=== PATIENT | female | born 1935 | race Two or more races ===

== ENCOUNTER 2024-11-11 17:18 | Inpatient (IN) | payer MEDICARE, MEDICAID, SELFPAY ==
[2024-11-11] VITALS (12 sets, daily range): BP systolic 102–144; BP diastolic 58–89; PULSE 89–111; RESP 18–26; TEMP 36.7–37.2; O2SAT 89–97; BMI 29.1
--- NOTE | 2024-11-11 19:23 | EKG_ITS ---
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
--- NOTE | 2024-11-11 19:30 | PD.EDSOB ---
ED SOB =RME/HPI General Chief Complaint: Shortness of Breath/Dyspnea Stated Complaint: SOB Time Seen by Provider: 11/11/24 19:31 Source: patient and EMS Arrival date/time: 11/11/24 17:18 Mode of arrival: EMS Limitations: no limitations and other (hard of hearing) RME / HPI RME / HPI Narrative: Dr. Pham?s Main ED Evaluation: An 89-year-old female, a resident of [facility], was brought to the emergency department via ambulance due to shortness of breath. According to half-way staff, the patient was hypoxic with an oxygen saturation of 81% on 2 L/min nasal cannula. She was also noted to have a heart rate of 140 bpm and a blood pressure of 143/68 mmHg. En route, EMS administered 2.5 mg of Albuterol. There is no mention of any other associated symptoms or medical complaints. MD Complaint: shortness of breath Related Data Home Medications ?Medication ?Instructions ?Recorded ?Confirmed acetaminophen 650 mg 650 mg PO Q6HR PRN pain 11/12/24 11/12/24 tablet,extended release (8 Hour Pain Reliever) albuterol sulfate See Rx Instructions inhalation 11/12/24 11/12/24 Q6HR PRN shortness of breath amlodipine 2.5 mg tablet 2.5 mg PO QDAY 11/12/24 11/12/24 donepezil 5 mg tablet 5 mg PO HS 11/12/24 11/12/24 escitalopram oxalate 20 mg tablet 20 mg PO QDAY 11/12/24 11/12/24 ipratropium 0.5 mg-albuterol 3 mg 3 ml inhalation Q4H PRN shortness 11/12/24 11/12/24 (2.5 mg base)/3 mL nebulization of breath soln lidocaine 4 % topical patch 1 patch topical Q4H PRN pain 11/12/24 11/12/24 (Aspercreme (lidocaine)) metformin 1,000 mg tablet 1,000 mg PO QDAY 11/12/24 11/12/24 montelukast 10 mg tablet 10 mg PO QDAY 11/12/24 11/12/24 multivitamin (Daily Multi-Vitamin 1 tab PO QDAY 11/12/24 11/12/24 tablet) polyethylene glycol 3350 17 17 g PO QDAY 11/12/24 11/12/24 gram/dose oral powder (ClearLax) simvastatin 10 mg tablet 10 mg PO QDAY 11/12/24 11/12/24 tramadol 50 mg tablet 50 mg PO Q6H PRN pain, mild 11/12/24 11/12/24 Allergies Allergy/AdvReac Type Severity Reaction Status Date / Time iodine Allergy Verified 11/11/24 17:25 tositumomab [id number] Allergy Verified 11/11/24 17:26 Review of Systems Review of Systems Systems Reviewed: All systems reviewed, normal except as documented Past Medical History Social History SMOKING STATUS: Never smoker ED Exam General Limitations: Present no limitations and other (hard of hearing) General appearance: Present alert and other (appearing tachypneic.) Head Head exam: Present atraumatic Eye Eye exam: Present normal appearance, PERRL and EOMI ENT ENT exam: Present normal exam, normal oropharynx and mucous membranes moist Neck Neck exam: Present normal inspection, full ROM and trachea midline Chest Chest inspection: Present normal inspection and symmetric chest wall rise Respiratory Respiratory exam: Present other (Oxygen saturation at 94% on 5 L/min via nasal cannula. Diffuse wheezing present bilaterally.) Cardiovascular Cardiovascular exam: Present regular rate, normal rhythm and normal heart sounds Abdominal Exam Abdominal exam: Present soft and normal bowel sounds Extremities Exam Extremities exam: Present normal inspection, full ROM and other (+1 pitting edema noted bilaterally in the lower extremities, extending to the knees.) Back Exam Back exam: Present normal inspection and full ROM Neurological Exam Neurological exam: Present alert, oriented X3 and CN II-XII intact Psychiatric Psychiatric exam: Present normal affect and normal mood Skin Skin exam: Present warm, dry, intact and normal color Course Course Course Narrative: CXR is ordered for determining etiology of shortness of breath. 1945 Sepsis alert initiated. Orders made at this time are congruent with ED Adult Sepsis Order List. Re-evaluation is to be completed. 2024 Sepsis reassessment performed consisting of lab review, vitals, physical exam including auscultation of heart, lungs, and visual evaluation of capillary refills, mucosal membranes and extremities. Quality Measures Current suspected stage: sepsis Possible source: unknown Blood cultures ordered: yes Antibiotic ordered: Yes Pertinent labs: 11/11/24 19:45 Lactic Acid 0.8 mMol/L (0.4-2.0) Procalcitonin 0.33 ng/ml (0.0-0.49) sepsis Orders Category Date Time Status COVID-19 Screening Questionnaire NOW Care 11/11/24 21:10 Active Decision to Admit X1 Care 11/11/24 21:10 Completed EKG (ED ONLY) *Do not use* NOW Care 11/11/24 19:24 Completed [place] to [place] Routine Care 11/11/24 19:35 Ordered In and Out Catheter X1PRN Care 11/11/24 19:52 Active Miscellaneous Nursing Order X1 Care 11/11/24 19:35 Active Strict Intake and Output Routine Care 11/11/24 19:44 Ordered EKG (ED Only) Stat Exams 11/11/24 19:23 Draft XR chest 1V SEPSIS PROTOCOL Stat Exams 11/11/24 19:45 Completed BNP [B-Type Natriuretic Peptide] Stat Lab 11/11/24 19:45 Completed Blood Culture (Lab) Stat Lab 11/11/24 20:00 Received CBC Stat Lab 11/11/24 19:45 Completed CMP [Comprehensive Metabolic Panel] Stat Lab 11/11/24 19:45 Completed LDH (Lactate Dehydrogenase) Stat Lab 11/11/24 19:45 Completed Lactic Acid [Lactate (Lactic Acid)] Stat Lab 11/11/24 19:45 Completed Lipase Stat Lab 11/11/24 19:45 Completed Magnesium Stat Lab 11/11/24 19:45 Completed Partial Thromboplastin Time Stat Lab 11/11/24 19:45 Completed Phosphorous Stat Lab 11/11/24 19:45 Completed Procalcitonin Stat Lab 11/11/24 19:45 Completed Prothrombin Time with INR Stat Lab 11/11/24 19:45 Completed Troponin I Stat Lab 11/11/24 19:45 Completed Urinalysis Stat Lab 11/11/24 19:52 Ordered Urinalysis, C/S if Indicated Stat Lab 11/11/24 19:40 Completed Urine Culture Stat Lab 11/11/24 19:46 Received Azithromycin Inj [Zithromax Inj] 500 mg Med 11/11/24 19:53 Discontinued Sodium Chloride 0.9% 250 ml [Ns] 250 ml IV X1 Furosemide Inj [Lasix Inj] Med 11/11/24 19:35 Discontinued 40 mg IVP X1 ONE Nitroglycerin Oint 2% [Nitro-paste Oint 2%] Med 11/11/24 19:43 Discontinued 1 inch TOP X1 ONE cefTRIAXone [Rocephin] 1,000 mg Med 11/11/24 19:52 Discontinued Sodium Chloride 0.9% [Ns] 50 ml IV X1 Vital Signs Vital signs: Vital Signs Temperature 98.0 F 11/11/24 17:31 Pulse Rate 104 H 11/11/24 17:31 Respiratory Rate 18 11/11/24 17:31 Blood Pressure 139/59 H 11/11/24 17:31 Pulse Oximetry (%) 91 L 11/11/24 17:31 Oxygen Delivery Method Room Air 11/11/24 17:31 Procedures -ED EKG Interpretation #1: EKG Impression: Normal QRS Additional EKG comment: I personally interpreted the EKG performed on 11/11/2024 at 19:34 shows sinus tachycardia with a rate of 106 bpm, non-specific ST changes in leads V5-V6, a QTc of 402 ms, normal intervals, and no evidence of STEMI. Shortness of Breath / Dyspnea MDM Narrative MDM Narrative:: Scribe Attestation: I, Eugene Anguiano, am scribing for and in the presence of Dr. Pham. Provider Notation: Although this document has been carefully reviewed, there may still be some phonetic and other typographical errors. These errors are purely grammatical due to imperfections in the software program and should not be construed in any way to compromise the substance of the patient's medical care during this visit. Patient data External records reviewed:: EMS form Clinical information provided by:: patient and EMS Social determinants that could affect healthcare access:: housing (SNF) Patient has the following chronic illnesses:: See PMH How is presenting disease/condition affected by chronic disease/condition?: uneffected by Evaluation data The following diagnostics were reviewed and interpreted by me:: lab results, radiology exam(s) and EKG tracing(s) Lab and/or radiology exams considered but not ordered:: None Interpretation Summary: I personally reviewed the radiology data and agree with the radiologist's interpretation. Examination: AP chest single view Technique: AP portable semiupright chest single view Exam date and time: November 11, 2024 1957 hrs. Indication: Shortness of breath today sepsis protocol Findings: Pneumonia in the lingular segment left upper lobe, obscuring detail left cardiac contour Mild enlargement cardiac contour with moderate vascular congestion Prominent osteopenia Impression: Pneumonia lingular segment left upper lobe Dictated By: Rigoberto Jacobsen MD Medications / Prescriptions Medications or Prescriptions considered but not ordered:: None Medication administrations:: Medication Administration History Acetaminophen (Acetaminophen 325 Mg Tablet) 650 mg PO Q6H PRN PRN Reason: Fever >101.5 Stop: 12/11/24 21:39 Albuterol/Ipratropium (Albuterol/Ipratropium (Duoneb) Rt Suzy 3 Ml Nebu) 3 ml INH Q4HRRT DANIEL Stop: 12/11/24 22:59 Last Admin: 11/12/24 04:31 Dose: 3 ml Documented By: Admin: 11/11/24 23:27 Dose: 3 ml Documented By: KALIE Dextrose (Dextrose 50%-Water Inj 50 Ml Syringe) 25 ml IV Q15MIN PRN PRN Reason: BG 50-70 responsive npo pt Stop: 12/11/24 22:10 Dextrose (Dextrose 50%-Water Inj 50 Ml Syringe) 50 ml IV Q15MIN PRN PRN Reason: BG <50 OR BG <70 & pt unresponsive Stop: 12/11/24 22:10 Glucagon (Glucagon Inj 1 Mg Vial) 1 mg IM Q15MIN PRN PRN Reason: BG <70, and no IV access Heparin Sodium (Porcine) (Heparin Sod Inj 5000 Unit/Ml Vial) 5,000 unit SC Q12H DANIEL Stop: 11/25/24 21:44 Last Admin: 11/11/24 23:29 Dose: 5,000 unit Documented By: ANTHONY Co-signed By: BALA Cefepime HCl 2 gm/ Sodium (Chloride) 50 mls @ 100 mls/hr IV HS [facility] Stop: 11/18/24 21:44 Insulin Human Lispro (Insulin Lispro (Admelog) 1 Unit/0.01 Ml Unit) 0 unit SC AC [facility]; Protocol Stop: 12/12/24 07:29 Methylprednisolone Sodium Succinate (Methylprednisolone Sod Succ 40 Mg Vial) 40 mg IVP QDAY [facility] Stop: 11/18/24 23:04 Last Admin: 11/11/24 23:28 Dose: 40 mg Documented By: ANTHONY Ondansetron HCl (Ondansetron Inj 2 Mg/Ml Inj 2 Ml) 4 mg IV Q6H PRN; Protocol PRN Reason: NAUSEA OR VOMITING Stop: 12/11/24 21:39 Pharmacy Consult (Vancomycin Pharmacy To Dose 1 Each Each) 1 each IV QDAY PRN PRN Reason: CONSULT Stop: 12/12/24 08:59 Sennosides (Senna Tablet) 1 tab PO QDAY DANIEL; Protocol Stop: 12/12/24 08:59 Discontinued Medications Furosemide (Furosemide Inj 10 Mg/Ml 4ml Vial) 40 mg IVP X1 ONE Stop: 11/11/24 19:36 Last Admin: 11/11/24 20:44 Dose: 40 mg Documented By: ANTHONY Ceftriaxone Sodium 1,000 mg/ (Sodium Chloride) 50 mls @ 100 mls/hr IV X1 ONE Stop: 11/11/24 20:21 Last Infusion: 11/11/24 23:25 Dose: Infused Documented By: Admin: 11/11/24 20:35 Dose: 100 mls/hr Documented By: ANTHONY Azithromycin 500 mg/ Sodium (Chloride) 250 mls @ 250 mls/hr IV X1 ONE Stop: 11/11/24 20:52 Last Infusion: 11/11/24 23:26 Dose: Infused Documented By: Admin: 11/11/24 20:35 Dose: 250 mls/hr Documented By: ANTHONY Cefepime HCl 2 gm/ Sodium (Chloride) 50 mls @ 100 mls/hr IV Q24H DANIEL Stop: 11/18/24 21:44 Last Admin: 11/11/24 23:28 Dose: 100 mls/hr Documented By: ANTHONY Cefepime HCl 2 gm/ Sodium (Chloride) 50 mls @ 100 mls/hr IV X1 ONE Stop: 11/11/24 23:44 Last Admin: 11/12/24 00:21 Dose: Not Given Documented By: ANTHONY Non-Admin Reason: Duplicate Medication on eMAR Vancomycin HCl/Dextrose (Vancomycin/D5w 1,250 Mg Ivpb) 250 mls @ 250 mls/hr IV X1 ONE Stop: 11/12/24 00:29 Last Admin: 11/12/24 02:36 Dose: Not Given Documented By: ARMAND Non-Admin Reason: Cancelled by Provider Vancomycin/Sodium Chloride (Vancomycin/Ns 1 Gm Ivpb) 200 mls @ 200 mls/hr IV X1 ONE Stop: 11/12/24 03:59 Last Admin: 11/12/24 03:59 Dose: 200 mls/hr Documented By: ARMAND Methylprednisolone Sodium Succinate (Methylprednisolone Sod Succ 40 Mg Vial) 40 mg IVP QDAY DANIEL Stop: 11/19/24 08:59 Nitroglycerin (Nitroglycerin Oint 2% 1 Inch Packet) 1 inch TOP X1 ONE Stop: 11/11/24 19:44 Last Admin: 11/11/24 20:42 Dose: 1 inch Documented By: ANTHONY Sodium Chloride (Sodium Chloride Rt 10% 15 Ml Nebu) 5 ml INH X1 ONE Stop: 11/11/24 21:45 Last Admin: 11/12/24 01:14 Dose: 5 ml Documented By: LYDIA As above Consultations Consultation(s) initiated? (list below): Yes Consultation #1 (Physician, Specialty, Details): Hospitalist made aware of the patient?s HPI, PMHx, lab and/or radiology results. Treatment plan was discussed. Accepts patient for admission. Time: 21:10 Diagnosis Shortness of Breath Differential Diagnosis: other (CHF, PNA, PE, sepsis, ACS, metabolic encephalopathy, influenza) Most likely diagnosis given after review of the tests above:: See clinical impression Admission Indicated Admission indicated?: indicated Admission Request Was there a request for admission?: Yes Admission Attestation Admission request attestation: Discussed case with [] from Hospitalist service regarding admission. Discussed patients ED course, exam findings, labs, and radiology results. The Hospitalist [agrees,declines] to accept the patient for admission. Disposition Plan Disposition Plan: Admit Critical Care Time Critical Care Time Critical Care Time: Yes Total Critical Care Time (min.): 45 Attestation: The high probability of sudden, clinically significant deterioration in the patient?s condition required the highest level of my preparedness to intervene urgently. ? The services I provided to this patient were to treat and/or prevent clinically significant deterioration. Services included the following: chart data review, reviewing nursing notes and/or old charts, documentation time, oracle distribution consultant collaboration regarding findings and treatment options, medication orders and management, direct patient care, vital sign assessments and ordering, interpreting and reviewing diagnostic studies and lab tests. ? Aggregate critical care time includes only time during which I was engaged in work directly related to the patient?s care, as described above, whether at bedside or elsewhere in the Emergency Department. It did not include time spent performing other reported procedures or the services of residents, students, nurses or physician assistants. Discharge Plan Plan Patient Disposition: Admit Acute Care w/in Hospital Patient condition on transfer: Stable Problem List Clinical Impression: Sepsis, Pneumonia, Acute hypoxic respiratory failure
--- NOTE | 2024-11-11 19:45 | XR_ITS ---
Examination: AP chest single view Technique: AP portable semiupright chest single view Exam date and time: November 11, 20247 hrs. Indication: Shortness of breath today sepsis protocol Findings: Pneumonia in the lingular segment left upper lobe, obscuring detail left cardiac contour Mild enlargement cardiac contour with moderate vascular congestion Prominent osteopenia Impression: Pneumonia lingular segment left upper lobe
[2024-11-11 19:52] LABS: Lactate (Lactic Acid) 0.8 mMol/L (0.4-2.0)
[2024-11-11 19:53] LABS: Basophils % (Auto) 0 % (0-2.5); Eosinophils % (Auto) 0 % (0-10); Hematocrit 37.6 % (36.0-46.0); Immature Granulocytes % (Auto) 0 % (0-0); Immature Granulocytes Auto 0.01 Thou/mm3 (0.00-0.00); Lymphocytes # (Auto) 1.3 Thou/mm3 (1.0-4.8); Lymphocytes % (Auto) 17 % (10-50); Mean Corpuscular HGB Conc 31.9 g/dl (31.0-37.0); Mean Corpuscular Hemoglobin 27.9 pg (25.0-35.0); Mean Corpuscular Volume 87 fL (80-100); Monocytes # (Auto) 0.7 Thou/mm3 (0.0-0.8); Monocytes % (Auto) 9 % (0-12); Neutrophils # (Auto) 5.3 Thou/mm3 (1.8-7.7); Neutrophils % (Auto) 73 % (37-80); Nucleated Red Blood Cell % 0 /100 WBC (0); Platelet Count 207 Thou/mm3 (140-440); RDW Standard Deviation 45.4 fL (36.4-46.3); White Blood Count 7.3 Thou/mm3 (3.6-11.0)
[2024-11-11 19:54] LABS: Collection Type, Urine Clean Catch
[2024-11-11 19:59] LABS: Bilirubin,Urine Negative (Negative); Blood,Urine Negative (Negative); Clarity,Urine Clear (Clear/Hazy); Color,Urine Yellow (Lt Yel-Yel); Glucose, Urine Negative (Negative); Ketones,Urine Negative (Negative); Leukocyte Esterase,Urine Positive (Negative); Nitrite,Urine Negative (Negative); PH,Urine 5.5 (5.0-7.0); Protein,Urine 1+ (Neg - Trace); RBC,Urine 4 /hpf (0-3); Specific Gravity,Urine 1.025 (1.001-1.035); Squamous Epithelial Cell,Urine 2 /hpf (0-5); Urobilinogen,Urine Negative mg/dL (0.0-1.0); WBC,Urine 16 /hpf (0-5)
[2024-11-11 20:03] LABS: Culture Indicated,Urine Yes
[2024-11-11 20:23] LABS: B-Type Natriuretic Peptide 52 pg/mL (0-100)
[2024-11-11 20:28] LABS: Partial Thromboplastin Time 27.7 Seconds (22.0-36.0); Prothrombin Time 10.9 Seconds (9.0-12.2)
[2024-11-11] MEDS: AZITHROMYCIN INJ 500 MG in SODIUM CHLORIDE 0.9% 250 ML 250 ML 250 MG IV (20:35)
[2024-11-11] MEDS: NITROGLYCERIN OINT 2% 1 INCH PACKET TOP (20:42)
[2024-11-11] MEDS: FUROSEMIDE INJ 10 MG/ML 4ML VIAL 40 MG IVP (20:44)
[2024-11-11 20:58] LABS: Alanine Aminotransferase < 7 U/L (10-49); Albumin, Serum 3.8 gm/dL (3.4-4.8); Albumin/Globulin Ratio 1.5 (1.2-2.2); Alkaline Phosphatase 68 U/L (46-116); Anion Gap 7 (7-16); Aspartate Amino Transferase 14 U/L (0-34); BUN/Creatinine Ratio 19 Ratio (12-20); Bilirubin,Total 0.3 mg/dL (0.3-1.2); Blood Urea Nitrogen 23 mg/dL (9-23); Calcium 8.7 mg/dL (8.3-10.6); Calcium (Corrected) 8.9 mg/dL (8.5-10.1); Carbon Dioxide 25.9 mMol/L (20.0-31.0); Chloride 103 mMol/L (98-107); Creatinine (Component) 1.2 mg/dL (0.6-1.3); Estimated Creatinine Clearance 24.4 mL/min (>60); Globulin 2.5 gm/dL (2.3-3.5); Glucose 142 mg/dL (74-106); Lipase 31 U/L (12-53); Magnesium 1.6 mg/dL (1.6-2.6); Osmolality,Calculated 277 (275-295); Phosphorous 3.3 mg/dL (2.4-5.1); Potassium 4.6 mMol/L (3.4-5.1); Procalcitonin 0.33 ng/ml (0.0-0.49); Sodium 136 mMol/L (136-145); Total Protein 6.3 gm/dL (5.7-8.2); Troponin I < 0.020 ng/mL (0.0-0.045); eGFR 44 See Note
--- NOTE | 2024-11-11 21:44 | ECHO_ITS ---
Transthoracic Echo Report Ht (in): 56 Wt (lb): 130 Exam Location: Echo Lab Status: Emergency Title Officer: Sigrid Petty Indications: Procedure Performed: BP: / HR: Technical Quality: Technically difficult study MEASUREMENTS (Male / Female) Normal Values 2D ECHO LV Diastolic Diameter PLAX 4.8 cm 4.2 - 5.9 / 3.9 - 5.3 cm LV Systolic Diameter PLAX 3.4 cm IVS Diastolic Thickness 0.9 cm 0.6 - 1.0 / 0.6 - 0.9 cm LVPW Diastolic Thickness 1.1 cm 0.6 - 1.0 / 0.6 - 0.9 cm LV Relative Wall Thickness 0.4 LVOT Diameter 1.4 cm Aortic Root Diameter 2.6 cm LA Volume Index 25.6 cm?/m? 16 - 28 cm?/m? DOPPLER AV Peak Velocity 156.0 cm/s AV Peak Gradient 9.7 mmHg AV Mean Gradient 4.0 mmHg AV Velocity Time Integral 29.6 cm LVOT Peak Velocity 113.0 cm/s LVOT Peak Gradient 5.1 mmHg LVOT Velocity Time Integral 24.2 cm AV Area Cont Eq vti 1.3 cm? AV Area Cont Eq pk 1.1 cm? MV Area PHT 5.0 cm? MR Peak Velocity 243.0 cm/s MR Peak Gradient 23.6 mmHg Mitral E Point Velocity 71.3 cm/s Mitral A Point Velocity 91.7 cm/s Mitral E to A Ratio 0.8 LV E' Lateral Velocity 6.5 cm/s Mitral E to LV E' Lateral Ratio 10.9 LV E' Septal Velocity 3.1 cm/s Mitral E to LV E' Septal Ratio 22.6 TR Peak Velocity 227.0 cm/s TR Peak Gradient 20.6 mmHg FINDINGS Left Ventricle Normal left ventricular size, systolic function with no obvious regional wall motion abnormalities. Mild LVH. Normal left ventricular diastolic filling pattern for age. The ejection fraction is visually estimated at 50 %. Right Ventricle The right ventricle is normal in size. The right ventricular systolic function is moderately decreased. Left Atrium The left atrium is normal by two-dimensional, color flow and Doppler imaging with no structural abnormalities, no thrombus formation present. Right Atrium The right atrium is normal by two-dimensional imaging, color flow and Doppler imaging with no structural abnormalities, no thrombus formation present. Atrial Septum The interatrial septum appears normal with no evidence of a shunt. Aorta The aorta is normal by two-dimensional, color flow and Doppler interrogation. Mitral Valve The mitral valve is normal by two-dimensional, color flow and Doppler interrogation. There is mild mitral valve regurgitation, stenosis or prolapse. Aortic Valve The aortic valve is trileaflet and normal by two-dimensional, color flow and Doppler interrogation. There is no significant aortic valve regurgitation. Tricuspid Valve The tricuspid valve is normal by two-dimensional, color flow and Doppler interrogation. There is mild tricuspid valve regurgitation. Pulmonic Valve The pulmonic valve is not well visualized. There is no significant pulmonic valve regurgitation. Vessels Inferior vena cava not well visualized. Pericardium The pericardium is normal by two-dimensional imaging. There is no significant pericardial effusion. CONCLUSIONS Indication: CHF Exacerbation Normal LV size. Mild LVH. Estimated EF 45-50 %. RV normal in size. RV systolic function is moderately decreased. Mild mitral and trace tricuspid regurgitation Maria Ines Gonzalez (Electronically Signed) Final Date: 15 November 2024 00:52
[2024-11-11 22:00] LABS: LDH (Lactate Dehydrogenase) 190 U/L (120-246)
--- NOTE | 2024-11-11 22:38 | XR_ITS ---
Examination: Venous duplex lower extremity sonogram, bilateral. Date and time of exam: November 11, 2024 at 1114 hrs. Indications: Leg pain shortness of breath this week Technique: Multiple sonographic images of the deep venous system have been obtained. B-mode/2-D grayscale imaging of vascular structures and Doppler spectral analysis (waveforms) and color performed Both legs are examined. Findings: Deep venous systems do not demonstrate abnormal echogenicity. All visualized deep veins exhibit compressibility. All visualized deep veins exhibit augmentation. Impression: Negative for deep vein thrombosis
--- NOTE | 2024-11-11 22:39 | PD.RESHP ---
Documentation for date of: 11/11/24 HPI History of Present Illness Chief complaint: Shortness of breath History of present illness: Ms. Resendez is a 89-year-old Guatemalan-speaking female with past medical history of hypertension, type 2 diabetes mellitus, asthma, major depressive disorder, Alzheimer's dementia, hyperlipidemia and difficulty ambulating who presented to [facility] on 11/11/24 from [facility] with a chief complaint of shortness of breath. Patient does not have any other active complaints, denies any dysuria or other problems. Patient is hard of hearing, poor historian reports that her symptoms started recently, unable to provide much history, called [facility] who stated that patient is on 2 L oxygen at baseline and recently developed shortness of breath was sent to ED. in the ED patient met SIRS criteria 2/4 was tachycardic and tachypneic, chest x-ray was significant for pneumonia of lingular segment left upper lobe and moderate vascular congestion. Patient was given ceftriaxone and azithromycin in ED, nitroglycerin topical x 1 and Lasix 40 mg x 1. Patient was not given IV fluids due to concern of CHF exacerbation. ED Course: ED Vitals: On presentation blood pressure 139/59, P104, RR 18, temp 98.0, O2 sat 91 on room air ED Labs: ED labs significant for GFR 44, glucose 142 ED Imaging: Chest x-ray significant for pneumonia of lingular segment left upper lobe, moderate vascular congestion ED Treatment: Patient was given ceftriaxone and azithromycin in ED, nitroglycerin topical x 1 and Lasix 40 mg x 1. Patient admitted to hospital for acute on chronic hypoxic respiratory failure secondary to healthcare acquired pneumonia, CHF exacerbation, asthma exacerbation. Review of Systems Review of Systems Narrative Review of Systems: ROS: -CONSTITUTIONAL: Denies weight loss, fever and chills. -HEENT: Denies changes in vision and hearing. -RESPIRATORY: Positive for shortness of breath, denies cough, positive for orthopnea. -CV: Denies palpitations and Chest Pain. -GI: Denies abdominal pain, nausea, vomiting,constipation and diarrhea. -: Denies dysuria and urinary frequency. -MSK: Denies myalgia and joint pain. Right leg more swollen than left. -SKIN: Denies rash and pruritus. -NEUROLOGICAL: Denies headache and syncope. -PSYCHIATRIC: Denies recent changes in mood. Denies anxiety and depression. Past Medical History Past Medical History Comments PMH COMMENT: PMH: Positive for hypertension, type 2 diabetes mellitus, asthma, major depressive disorder, Alzheimer's dementia, hyperlipidemia and difficulty ambulating PSHx: Unable to provide information Allergies: Iodine Social history: Currently staying at [facility] Home medication: Donepezil 5 mg daily Amlodipine 2.5 mg daily Simvastatin 10 mg daily Metformin 1000 mg daily Ventolin as needed Escitalopram 20 mg daily Exam Vital Signs Temp Pulse Resp BP Pulse Ox O2 Del Method O2 Flow Rate 98.7 F 104 H 26 H 102/58 L 95 Nasal Cannula 5 11/11/24 21:13 11/11/24 22:00 11/11/24 22:00 11/11/24 22:00 11/11/24 22:00 11/11/24 21:13 11/11/24 21:13 Narrative Exam Physical Exam General: Awake and in no acute distress. Conversational hard of hearing and non-toxic appearing. HEENT: Normocephalic, atraumatic, mucous membranes moist. Heart: Regular rate and rhythm, no murmurs. Lungs: Bilateral crackles, wheezing appreciated Abdomen: Soft, obese, nondistended, nontender, positive bowel sounds. ?No guarding or rebound tenderness. Neurologic: Alert and oriented x2, no gross neurological deficit, and patient able to move all 4 extremities. Extremities: Trace edema bilaterally. Right leg more swollen than left Skin: No rash or ecchymoses. Results: Labs 11/11/24 19:45 11/11/24 19:45 Labs: Short CBC 11/11/24 Range/Units 19:45 WBC 7.3 (3.6-11.0) Thou/mm3 Hgb 12.0 (12.0-16.0) g/dL Hct 37.6 (36.0-46.0) % Plt Count 207 (140-440) Thou/mm3 BMP 11/11/24 19:45 Sodium 136 Potassium 4.6 Chloride 103 Carbon Dioxide 25.9 BUN 23 Creatinine 1.2 Glucose 142 H Calcium 8.7 Cardiac Enzymes 11/11/24 Range/Units 19:45 Troponin I < 0.020 (0.0-0.045) ng/mL Liver Function 11/11/24 Range/Units 19:45 Total Bilirubin 0.3 (0.3-1.2) mg/dL AST 14 (0-34) U/L ALT < 7 L (10-49) U/L Alkaline Phosphatase 68 (46-116) U/L Albumin 3.8 (3.4-4.8) gm/dL Urine 11/11/24 Range/Units 19:40 Urine Color Yellow (Lt Yel-Yel) Urine Clarity Clear (Clear/Hazy) Urine pH 5.5 (5.0-7.0) Ur Specific [place] 1.025 (1.001-1.035) Urine Protein 1+ A (Neg - Trace) Urine Glucose (UA) Negative (Negative) Quality Measures Quality Measures sepsis Current suspected stage: sepsis Possible source: unknown Blood cultures ordered: yes Antibiotic ordered: Yes Advance care planning discussed with:: patient Medications Home Medications and Allergies Allergies Allergy/AdvReac Type Severity Reaction Status Date / Time iodine Allergy Verified 11/11/24 17:25 tositumomab iodine-131 Allergy Verified 11/11/24 17:26 Visit Medications Acetaminophen (Acetaminophen 325 Mg Tablet) 650 mg PO Q6H PRN PRN Reason: Fever >101.5 Stop: 12/11/24 21:39 Albuterol/Ipratropium (Albuterol/Ipratropium (Duoneb) Rt Suzy 3 Ml Nebu) 3 ml INH Q4HRRT [facility] Stop: 12/11/24 22:59 Dextrose (Dextrose 50%-Water Inj 50 Ml Syringe) 25 ml IV Q15MIN PRN PRN Reason: BG 50-70 responsive npo pt Stop: 12/11/24 22:10 Dextrose (Dextrose 50%-Water Inj 50 Ml Syringe) 50 ml IV Q15MIN PRN PRN Reason: BG <50 OR BG <70 & pt unresponsive Stop: 12/11/24 22:10 Glucagon (Glucagon Inj 1 Mg Vial) 1 mg IM Q15MIN PRN PRN Reason: BG <70, and no IV access Heparin Sodium (Porcine) (Heparin Sod Inj 5000 Unit/Ml Vial) 5,000 unit SC Q12H [facility] Stop: 11/25/24 21:44 Cefepime HCl 2 gm/ Sodium (Chloride) 50 mls @ 100 mls/hr IV Q24H [facility] Stop: 11/18/24 21:44 Insulin Human Lispro (Insulin Lispro (Admelog) 1 Unit/0.01 Ml Unit) 0 unit SC AC DANIEL; Protocol Stop: 12/12/24 07:29 Ondansetron HCl (Ondansetron Inj 2 Mg/Ml Inj 2 Ml) 4 mg IV Q6H PRN; Protocol PRN Reason: NAUSEA OR VOMITING Stop: 12/11/24 21:39 Pharmacy Consult (Vancomycin Pharmacy To Dose 1 Each Each) 1 each IV QDAY DANIEL Stop: 12/12/24 08:59 Sennosides (Senna Tablet) 1 tab PO QDAY DANIEL; Protocol Stop: 12/12/24 08:59 Discontinued Medications Furosemide (Furosemide Inj 10 Mg/Ml 4ml Vial) 40 mg IVP X1 ONE Stop: 11/11/24 19:36 Last Admin: 11/11/24 20:44 Dose: 40 mg Ceftriaxone Sodium 1,000 mg/ (Sodium Chloride) 50 mls @ 100 mls/hr IV X1 ONE Stop: 11/11/24 20:21 Last Admin: 11/11/24 20:35 Dose: 100 mls/hr Azithromycin 500 mg/ Sodium (Chloride) 250 mls @ 250 mls/hr IV X1 ONE Stop: 11/11/24 20:52 Last Admin: 11/11/24 20:35 Dose: 250 mls/hr Nitroglycerin (Nitroglycerin Oint 2% 1 Inch Packet) 1 inch TOP X1 ONE Stop: 11/11/24 19:44 Last Admin: 11/11/24 20:42 Dose: 1 inch Sodium Chloride (Sodium Chloride Rt 10% 15 Ml Nebu) 5 ml INH X1 ONE Stop: 11/11/24 21:45 Assessment & Plan Plan Assessment and Plan: Summary: Ms. Resendez is a 89-year-old Guatemalan-speaking female with past medical history of hypertension, type 2 diabetes mellitus, asthma, major depressive disorder, Alzheimer's dementia, hyperlipidemia and difficulty ambulating who presented to [facility] on 11/11/24 from [facility] with a chief complaint of shortness of breath. Patient admitted to hospital for acute on chronic hypoxic respiratory failure secondary to healthcare acquired pneumonia, CHF exacerbation, asthma exacerbation. #Acute on chronic hypoxic respiratory failure #Healthcare acquired pneumonia #Asthma exacerbation #Bilateral lower leg edema, R>L Patient on baseline 2 L at senior [facility], presented to ED with chief complaint of shortness of breath, had tachypnea, tachycardia, met SIRS criteria 2/4, chest x-ray showed lingular pneumonia left lung, was not given fluids due to concern of CHF, no previous echo on record, 1+ bilateral lower extremity edema noted by ED physician, was given Lasix 40 mg x 1. Bilateral wheezing, crackles heard, patient has increased oxygen requirement, currently on 5 L. Plan: -Started on cefepime and vancomycin (11/11- -started IV methylprednisone 40 mg daily -Ordered bedside flu, COVID, MRSA nasal screen, sputum culture -Follow-up blood culture -DuoNeb every 4 hours -Obtain daily weight, strict I&O, fluid restriction 1500 cc -Ordered venous Doppler bilateral lower extremities -Supplemental oxygen as needed -Patient was given Lasix 40 mg x 1 in ED -Ordered echo, concern for vascular congestion on chest x-ray #?BART vs. chronic kidney disease On admission BUN 23, creatinine 1.2, GFR 44, baseline unknown Patient received Lasix 40 mg x 1 in ED Plan: -Follow renal panel in a.m. -Avoid nephrotoxic agents -Dose medications renally # Type 2 diabetes mellitus Patient has history of type 2 diabetes mellitus on metformin 1000 mg daily. Plan: -Sliding scale insulin -Follow hemoglobin A1c in a.m. -Fingerstick AC -Carb consistent diet -Hypoglycemia protocol as needed #Hypertension #Hyperlipidemia Patient on amlodipine 2.5 mg daily and simvastatin 10 mg daily at home Plan: -Will hold antihypertensives, blood pressure soft -Follow lipid panel in a.m. #Alzheimer's dementia #Major depressive disorder Patient on donepezil 5 mg daily and escitalopram 20 mg daily at home Plan: -Consider resuming home meds in a.m. DVT prophylaxis: Heparin every 12 hours GI prophylaxis: Not indicated Diet: Cardiac, carbohydrate consistent, fluid restriction 1500 cc Lines: Peripheral IV Code status: Full code Primary point of contact: Patient's son Nirmal Resendez PH#[phone], obtained from facility. Case discussed with Attending Dr. Serrano. Alfreda Irene PGY1 Disclaimer: This note was dictated by speech recognition. Minor errors in automation tech may be present due to voice recognition software. Attending Provider Attestation/Addendum I attest that I was physically present for the evaluation, physical examination, lab and imaging review of the patient with the residents. I discussed the case with the residents and agree with the findings and plans of care as documented above. Patient is an 89 years old female with past medical history of hypertension, diabetes, asthma, major depressive disorder, Alzheimer's disease, hyperlipidemia who presented to the ED from [facility] with complaint of shortness of breath. At the facility, patient was found to have decreased oxygen saturation despite 2 L of nasal cannula and was sent to the ED. In the ED, patient was tachycardic with pulse of 104, she was also tachypneic. Chest x-ray was done which shows pneumonia of the lingular segment of left upper lobe and vascular congestion. Patient received Rocephin, azithromycin, nitroglycerin and Lasix in the ED. We will admit patient for management of acute on chronic hypoxic respiratory failure likely secondary to healthcare acquired pneumonia and acute asthma exacerbation. Started patient on IV cefepime and vancomycin. We will obtain flu, COVID, MRSA and sputum culture. We will continue with supplemental oxygen, DuoNebs, IV steroid. We will also obtain echocardiography as patient was noted to have vascular congestion on her chest x-ray. Patient did receive Lasix 40 x 1 in the ED, we will reevaluate tomorrow for need of diuresis. Patient will also noted to have right calf larger than the left 1, we will obtain a Doppler ultrasound. Started on sliding scale for diabetes mellitus. Patient has soft blood pressure we will hold her antihypertensives. Vi Serrano MD
[2024-11-11] MEDS: ALBUTEROL/IPRATROPIUM (Duoneb) RT SOL 3 ML NEBU INH (23:27)
[2024-11-11] MEDS: CEFEPIME INJ 2 GM in SODIUM CHLORIDE 0.9% 50 ML IV (23:28)
[2024-11-11] MEDS: HEPARIN SOD INJ 5000 UNIT/ML VIAL SC (23:29)
[2024-11-12] VITALS (14 sets, daily range): BP systolic 98–129; BP diastolic 49–86; PULSE 65–118; RESP 16–29; TEMP 36–36.9; O2SAT 90–99; BMI 31.6
[2024-11-12] MEDS: SODIUM CHLORIDE RT 10% 15 ML NEBU 5 ML INH (01:14)
[2024-11-12 01:39] LABS: Respiratory Syncytial Virus Ag Positive (Negative)
--- NOTE | 2024-11-12 02:53 | PC.NURSE ---
repoort was given to malini DO. Pt taken to [facility] by myself on corporate development analyst.
[2024-11-12] MEDS: VANCOMYCIN/NS 1 GM IVPB 200 ML IV (03:59)
[2024-11-12] MEDS: ALBUTEROL/IPRATROPIUM (Duoneb) RT SOL 3 ML NEBU INH ×6 (04:31→22:40)
[2024-11-12 05:36] LABS: Basophils % (Auto) 0 % (0-2.5); Eosinophils % (Auto) 0 % (0-10); Hematocrit 37.4 % (36.0-46.0); Hemoglobin 11.9 g/dL (12.0-16.0); Immature Granulocytes % (Auto) 0 % (0-0); Immature Granulocytes Auto 0.02 Thou/mm3 (0.00-0.00); Lymphocytes # (Auto) 0.8 Thou/mm3 (1.0-4.8); Lymphocytes % (Auto) 10 % (10-50); Mean Corpuscular HGB Conc 31.8 g/dl (31.0-37.0); Mean Corpuscular Hemoglobin 27.7 pg (25.0-35.0); Mean Corpuscular Volume 87 fL (80-100); Monocytes # (Auto) 0.1 Thou/mm3 (0.0-0.8); Monocytes % (Auto) 2 % (0-12); Neutrophils # (Auto) 7.5 Thou/mm3 (1.8-7.7); Neutrophils % (Auto) 89 % (37-80); Nucleated Red Blood Cell % 0 /100 WBC (0); Platelet Count 206 Thou/mm3 (140-440); RDW Standard Deviation 44.5 fL (36.4-46.3); White Blood Count 8.4 Thou/mm3 (3.6-11.0)
[2024-11-12 06:01] LABS: Glucose Estimated Average 151 mg/dL (80-131); Hemoglobin A1C 6.9 % Hgb (4.8-6.0)
[2024-11-12 06:25] LABS: Alanine Aminotransferase < 7 U/L (10-49); Albumin, Serum 3.7 gm/dL (3.4-4.8); Albumin/Globulin Ratio 1.3 (1.2-2.2); Alkaline Phosphatase 66 U/L (46-116); Anion Gap 9 (7-16); Aspartate Amino Transferase 10 U/L (0-34); BUN/Creatinine Ratio 19 Ratio (12-20); Bilirubin,Total 0.2 mg/dL (0.3-1.2); Blood Urea Nitrogen 23 mg/dL (9-23); Calcium 8.3 mg/dL (8.3-10.6); Calcium (Corrected) 8.5 mg/dL (8.5-10.1); Carbon Dioxide 25.9 mMol/L (20.0-31.0); Cardiac Risk Estimate 2.1 RATIO (3.7-5.6); Chloride 102 mMol/L (98-107); Cholesterol 105 mg/dL (132-200); Creatinine (Component) 1.2 mg/dL (0.6-1.3); Estimated Creatinine Clearance 25.4 mL/min (>60); Free T4 (Free Thyroxine) 1.11 ng/dL (0.89-1.76); Globulin 2.8 gm/dL (2.3-3.5); Glucose 161 mg/dL (74-106); HDL Cholesterol 51 mg/dL (40-60); LDL Cholesterol,Calculated 44 mg/dL (0-130); Magnesium 1.6 mg/dL (1.6-2.6); Osmolality,Calculated 280 (275-295); Phosphorous 4.1 mg/dL (2.4-5.1); Potassium 4.6 mMol/L (3.4-5.1); Sodium 137 mMol/L (136-145); Thyroid Stimulating Hormone 0.69 uIU/mL (0.55-4.78); Total Protein 6.5 gm/dL (5.7-8.2); Triglycerides 52 mg/dL (30-150); eGFR 44 See Note
[2024-11-12] MEDS: SENNA TABLET 1 TAB PO (10:00)
[2024-11-12] MEDS: HEPARIN SOD INJ 5000 UNIT/ML VIAL SC ×2 (10:01→21:57)
[2024-11-12] MEDS: INSULIN LISPRO (AdmeLOG) 1 UNIT/0.01 ML UNIT SC ×3 (10:02→17:27)
--- NOTE | 2024-11-12 13:27 | PD.RESPRO ---
Documentation for date of: 11/12/24 Subjective Subjective Interval history: Patient was seen at bedside this morning. She was pretty drowsy today, but was easily arousable. In the afternoon patient was sitting in bed enjoying her lunch. No other complaints this time. Wheezing is heard on auscultation. No other complaints at this time. Exam Vital Signs Temp Pulse Resp BP Pulse Ox O2 Del Method O2 Flow Rate 96.8 F 65 16 103/56 L 98 Nasal Cannula 4 11/12/24 08:00 11/12/24 10:11/12/24 10:11/12/24 08:00 11/12/24 10:11/12/24 08:00 11/12/24 10:25 Narrative Exam General: A/O x3, no acute distress, frail elderly Eyes: PERRL, EOMI. Anicteric, vision grossly intact. Ears: No ear pain, no ear discharge, Hearing grossly intact. Nose: No nasal discharge. Mouth/Throat: Dry mucous membranes, no redness, no lesions. Neck: Neck supple, non-tender, no cervical lymphadenopathy. Lungs: Wheezing AGUILA, No accessory muscle use. Cardio: Normal S1/S2, regular rhythm, no murmurs, no JVD Abdomen: Soft, non-tender, no palpable masses, peristalsis present, no guarding or rebound. Extremities: Symmetrical, no significant deformities, no peripheral edema , non-tender, peripheral pulses presents. Skin: No rashes, no lesions, warm to touch. Neuro: No focal neurological deficits. motor and sensory intact Psych: Cooperative, appropriate mood and effect. Objective Labs 11/12/24 04:44 11/12/24 04:44 Labs: Laboratory Results - last 24 hr 11/11/24 11/11/24 11/12/24 19:40 19:45 00:12 WBC 7.3 RBC 4.30 Hgb 12.0 Hct 37.6 MCV 87 MCH 27.9 MCHC 31.9 RDW Std Deviation 45.4 Plt Count 207 Neut % (Auto) 73 Lymph % (Auto) 17 [place] % (Auto) 9 Eos % (Auto) 0 Baso % (Auto) 0 Neut # (Auto) 5.3 Lymph # (Auto) 1.3 [place] # (Auto) 0.7 Eos # (Auto) 0.0 Baso # (Auto) 0.0 Immature Gran # (Auto) 0.01 H Absolute Nucleated RBC 0.00 Immature Gran % 0 Nucleated RBC % 0 PT 10.9 INR 1.0 APTT 27.7 Sodium 136 Potassium 4.6 Chloride 103 Carbon Dioxide 25.9 Anion Gap 7 BUN 23 Creatinine 1.2 Estim Creat Clear Calc 24.4 L eGFR 44 L BUN/Creatinine Ratio [address] Glu mg/dL Hemoglobin A1c Calculated Osmolality 277 Lactic Acid 0.8 Calcium 8.7 Corrected Calcium 8.9 Phosphorus 3.3 Magnesium 1.6 Total Bilirubin 0.3 AST 14 ALT < 7 L Alkaline Phosphatase 68 Lactate Dehydrogenase 190 Troponin I < 0.020 B-Natriuretic Peptide 52 Total Protein 6.3 Albumin 3.8 Globulin 2.5 Albumin/Globulin Ratio 1.5 Triglycerides Cholesterol LDL Cholesterol, Calc HDL Cholesterol Cholesterol/HDL Ratio Lipase 31 Procalcitonin 0.33 TSH Free T4 Ur Collection Type Clean Catch Urine Color Yellow Urine Clarity Clear Urine pH 5.5 Ur Specific [place] 1.025 Urine Protein 1+ A Urine Glucose (UA) Negative Urine Ketones Negative Urine Blood Negative Urine Nitrite Negative Urine Bilirubin Negative Urine Urobilinogen (Auto) Negative Ur Leukocyte Esterase Positive Urine RBC 4 H Urine WBC 16 H Ur Squamous Epith Cells 2 Urine Bacteria None Ur Culture Indicated? Yes RSV Rapid Positive A 11/12/24 04:44 WBC 8.4 RBC 4.30 Hgb 11.9 L Hct 37.4 MCV 87 MCH 27.7 MCHC 31.8 RDW Std Deviation 44.5 Plt Count 206 Neut % (Auto) 89 H Lymph % (Auto) 10 [place] % (Auto) 2 Eos % (Auto) 0 Baso % (Auto) 0 Neut # (Auto) 7.5 Lymph # (Auto) 0.8 L [place] # (Auto) 0.1 Eos # (Auto) 0.0 Baso # (Auto) 0.0 Immature Gran # (Auto) 0.02 H Absolute Nucleated RBC 0.00 Immature Gran % 0 Nucleated RBC % 0 PT INR APTT Sodium 137 Potassium 4.6 Chloride 102 Carbon Dioxide 25.9 Anion Gap 9 BUN 23 Creatinine 1.2 Estim Creat Clear Calc 25.4 L eGFR 44 L BUN/Creatinine Ratio [address]ucose [address] Glu mg/dL 151 H Hemoglobin A1c 6.9 H Calculated Osmolality 280 Lactic Acid Calcium 8.3 Corrected Calcium 8.5 Phosphorus 4.1 Magnesium 1.6 Total Bilirubin 0.2 L AST 10 ALT < 7 L Alkaline Phosphatase 66 Lactate Dehydrogenase Troponin I B-Natriuretic Peptide Total Protein 6.5 Albumin 3.7 Globulin 2.8 Albumin/Globulin Ratio 1.3 Triglycerides 52 Cholesterol 105 L LDL Cholesterol, Calc 44 HDL Cholesterol 51 Cholesterol/HDL Ratio 2.1 L Lipase Procalcitonin TSH 0.69 Free T4 1.11 Ur Collection Type Urine Color Urine Clarity Urine pH Ur Specific [place] Urine Protein Urine Glucose (UA) Urine Ketones Urine Blood Urine Nitrite Urine Bilirubin Urine Urobilinogen (Auto) Ur Leukocyte Esterase Urine RBC Urine WBC Ur Squamous Epith Cells Urine Bacteria Ur Culture Indicated? RSV Rapid Quality Measures Quality Measures sepsis Current suspected stage: ruled out Possible source: unknown Blood cultures ordered: yes Antibiotic ordered: Yes Advance care planning discussed with:: patient Assessment & Plan Assessment Current Active Medications: Generic Name Dose Route Start Last Admin Trade Name Freq PRN Reason Stop Dose Admin Acetaminophen 650 mg 11/11/24 21:40 Acetaminophen 325 Mg Tablet PO 12/11/24 21:39 Q6H PRN Fever >101.5 Albuterol/Ipratropium 3 ml 11/11/24 23:00 11/12/24 10:24 Albuterol/Ipratropium (Duoneb) Rt Suzy 3 Ml Nebu INH 12/11/24 22:59 3 ml Q4HRRT DANIEL Administration Dextrose 25 ml 11/11/24 22:11 Dextrose 50%-Water Inj 50 Ml Syringe IV 12/11/24 22:10 Q15MIN PRN BG 50-70 responsive npo pt Dextrose 50 ml 11/11/24 22:11 Dextrose 50%-Water Inj 50 Ml Syringe IV 12/11/24 22:10 Q15MIN PRN BG <50 OR BG <70 & pt unresponsive Glucagon 1 mg 11/11/24 22:11 Glucagon Inj 1 Mg Vial IM Q15MIN PRN BG <70, and no IV access Heparin Sodium (Porcine) 5,000 unit 11/11/24 21:45 11/12/24 10:01 Heparin Sod Inj 5000 Unit/Ml Vial SC 11/25/24 21:44 5,000 unit Q12H DANIEL Administration Cefepime HCl 2 gm/ Sodium 50 mls @ 100 mls/hr 11/12/24 21:00 Chloride IV 11/18/24 21:44 HS [facility] Insulin Human Lispro 0 unit 11/12/24 07:30 11/12/24 11:56 Insulin Lispro (Admelog) 1 Unit/0.01 Ml Unit SC 12/12/24 07:29 1 unit AC DANIEL Administration Protocol Methylprednisolone Sodium Succinate 40 mg 11/11/24 23:05 11/12/24 10:01 Methylprednisolone Sod Succ 40 Mg Vial IVP 11/18/24 23:04 40 mg QDAY DANIEL Administration Ondansetron HCl 4 mg 11/11/24 21:40 Ondansetron Inj 2 Mg/Ml Inj 2 Ml IV 12/11/24 21:39 Q6H PRN NAUSEA OR VOMITING Protocol Pharmacy Consult 1 each 11/12/24 09:00 Vancomycin Pharmacy To Dose 1 Each Each IV 12/12/24 08:59 QDAY PRN CONSULT Sennosides 1 tab 11/12/24 09:00 11/12/24 10:00 Senna Tablet PO 12/12/24 08:59 1 tab QDAY DANIEL Administration Protocol Plan 89-year-old female with past medical history of asthma, hypertension, DM2, major depressive disorder, Alzheimer's, and hyperlipidemia was admitted to hospital on 11/11/2024 due to acute hypoxic respiratory failure likely secondary to asthma exacerbation in the setting of community-acquired pneumonia. #Acute on chronic hypoxic respiratory failure likely secondary to #Asthma exacerbation in the setting of #Community-acquired pneumonia, RSV positive ? Patient uses 2 L of O2 at [facility]. ? Patient came in with increased shortness of breath, tachypnea, and tachycardia. ? Chest x-ray that showed pneumonia ? Patient is RSV positive Plan: ? Continue cefepime and vancomycin [11/11/2024?] ?Continue Solu-Medrol 40 mg IV daily [11/11/2024?] ? DuoNebs every 4 hours ? Blood cultures pending ? Will continue to monitor #Concern for heart failure ? Patient came in with lower extremity swelling as well as shortness of breath with some crackles on physical exam initially ? There is no echo on file ? BNP 52 Plan: ? Echo ordered ? Strict QUENTIN's ? Daily weights ? Fluid restrictions daily ? Will continue to monitor #DM2 ? A1c 6.9% 11/12/2024 Plan: ? ISS ? Accu-Cheks and hypoglycemia protocol ordered ? Will continue to monitor #Hx of hypertension #Hx of hyperlipidemia ? Triglycerides 52, cholesterol 105, LDL 44, HDL 51 on 11/12/2024 ? Patient's blood pressure has been on the lower end since admission Plan: ? Atorvastatin 20 mg at bedtime ? Will hold off on antihypertensive medication at this time given patient's soft BP ? Restart amlodipine 2.5 mg daily if patient's blood pressure does become elevated #Hx of major depressive disorder #Alzheimer's disease ? Will restart patient's donepezil 5 mg at bedtime ? Will restart patient escitalopram 20 mg p.o. daily Disposition: Patient seen in med surg, continue Abx, solumedrol, duonebs, and pending echo and blood cultures.. Diet: Cardiac, carb consistent GI prophylaxis: protonix DVT prophylaxis: Heparin sc Code: Full code Case disclosed with Attending Dr. Gonzales Sy PGY1 Attending Provider Attestation/Addendum I have examined the patient, reviewed labs and imaging findings, discussed the case with the resident(s), and reviewed entered orders. I agree with the plan of care as outlined in this note, with these additional summaries/recommendations: 89-year-old female history of asthma, dementia presents to the ED with chief complaint of altered mental status and hypoxia. Patient found to be RSV positive in addition to asthma exacerbation, healthcare acquired pneumonia, GPC bacteremia. Will initiate patient on broad-spectrum antibiotics, steroids for asthma exacerbation as well as DuoNeb treatment and continue to monitor closely. Placed in contact precautions for RSV. George Rolon MD
[2024-11-12] MEDS: ESCITALOPRAM OXALATE 10 MG TABLET 20 MG PO (17:26)
[2024-11-12] MEDS: PANTOPRAZOLE 40 MG TABLET PO (17:27)
--- NOTE | 2024-11-12 19:04 | PC.NURSE ---
Noted patient in a-fib on strips, called radiation monitor and confirmed a-fib. HR in high 90s. Tried to call morning team but no answer. Tried to call night team and no answer 1900. Nurse in shift report notified.
--- NOTE | 2024-11-12 19:49 | EKG_ITS ---
[facility] Test Date: 2024-11-12 Pat Name: PRESTON WARD [facility] Gender[facility] Female Speech Pathology Teacher: BRANDON : 1935 Requested By: Lux Zaragoza Order Number: [id number] Reading MD: Lux Zaragoza Measurements Intervals [place] Rate: 101 P: RI: QRS: 37 QRSD: 99 T: 78 QT: 355 QTc: 462 Interpretive Statements ATRIAL FIBRILLATION WITH RAPID VENTRICULAR RESPONSE NONSPECIFIC T-WAVE ABNORMALITY ABNORMAL RHYTHM ECG Compared to ECG 11/11/2024 19:34:41 Sinus tachycardia no longer present T-wave abnormality still present /store/S0/[id number]
[2024-11-12] MEDS: CEFEPIME INJ 2 GM in SODIUM CHLORIDE 0.9% 50 ML IV (21:56)
[2024-11-12] MEDS: DONEPEZIL HCL 5 MG TABLET PO (21:57)
[2024-11-12] MEDS: ATORVASTATIN CALCIUM 20 MG TABLET PO (21:57)
[2024-11-13] VITALS (14 sets, daily range): BP systolic 110–151; BP diastolic 60–78; PULSE 77–111; RESP 16–32; TEMP 36.1–36.8; O2SAT 94–99
--- NOTE | 2024-11-13 00:34 | PC.NURSE ---
pt strips showing Afib, Dr. Irene was made aware. No new orders for pt at this time. Per Dr. Irene, no new orders for pt at this time because HR rate is under 100. automation control technician reported that pt has a run of PVCs, Dr. Irene was made aware no new orders fro pt at this time. Pt's HR sinus with PACs, was made aware. no new orders for pt at thi time.
[2024-11-13] MEDS: ALBUTEROL/IPRATROPIUM (Duoneb) RT SOL 3 ML NEBU INH ×6 (02:14→23:50)
[2024-11-13 05:45] LABS: Basophils % (Auto) 0 % (0-2.5); Eosinophils % (Auto) 0 % (0-10); Hematocrit 34.8 % (36.0-46.0); Immature Granulocytes % (Auto) 0 % (0-0); Immature Granulocytes Auto 0.01 Thou/mm3 (0.00-0.00); Lymphocytes # (Auto) 1.5 Thou/mm3 (1.0-4.8); Lymphocytes % (Auto) 21 % (10-50); Mean Corpuscular HGB Conc 31.6 g/dl (31.0-37.0); Mean Corpuscular Hemoglobin 27.8 pg (25.0-35.0); Mean Corpuscular Volume 88 fL (80-100); Monocytes # (Auto) 0.8 Thou/mm3 (0.0-0.8); Monocytes % (Auto) 11 % (0-12); Neutrophils # (Auto) 4.7 Thou/mm3 (1.8-7.7); Neutrophils % (Auto) 68 % (37-80); Nucleated Red Blood Cell % 0 /100 WBC (0); Platelet Count 183 Thou/mm3 (140-440); RDW Standard Deviation 44.6 fL (36.4-46.3); Red Blood Count 3.95 Miln/mm3 (4.00-5.20)
[2024-11-13 06:25] LABS: Alanine Aminotransferase < 7 U/L (10-49); Albumin, Serum 3.6 gm/dL (3.4-4.8); Albumin/Globulin Ratio 1.4 (1.2-2.2); Alkaline Phosphatase 59 U/L (46-116); Anion Gap 8 (7-16); Aspartate Amino Transferase < 10 U/L (0-34); BUN/Creatinine Ratio 30 Ratio (12-20); Bilirubin,Total 0.2 mg/dL (0.3-1.2); Blood Urea Nitrogen 36 mg/dL (9-23); Calcium 8.6 mg/dL (8.3-10.6); Calcium (Corrected) 8.9 mg/dL (8.5-10.1); Carbon Dioxide 27.7 mMol/L (20.0-31.0); Chloride 104 mMol/L (98-107); Creatinine (Component) 1.2 mg/dL (0.6-1.3); Estimated Creatinine Clearance 25.5 mL/min (>60); Globulin 2.5 gm/dL (2.3-3.5); Glucose 146 mg/dL (74-106); Magnesium 1.9 mg/dL (1.6-2.6); Osmolality,Calculated 290 (275-295); Phosphorous 3.5 mg/dL (2.4-5.1); Potassium 4.3 mMol/L (3.4-5.1); Sodium 140 mMol/L (136-145); Total Protein 6.1 gm/dL (5.7-8.2); Vancomycin,Random 8.2 mcg/mL; eGFR 44 See Note
[2024-11-13] MEDS: Magnesium Sulfate 2 GM Ivpb 2 GM/50 ML BAG IV (09:20)
[2024-11-13] MEDS: PANTOPRAZOLE 40 MG TABLET PO (09:50)
[2024-11-13] MEDS: ESCITALOPRAM OXALATE 10 MG TABLET 20 MG PO (09:50)
[2024-11-13] MEDS: DOXYCYCLINE 100 MG TABLET PO ×2 (10:00→20:28)
[2024-11-13] MEDS: HEPARIN SOD INJ 5000 UNIT/ML VIAL SC (10:15)
--- NOTE | 2024-11-13 10:25 | PC.SS ---
Patient Marla Resendez is a 89 Year old male admitted for [facility] 11/12 PNA. SS met with patient at bedside to discuss Discharge plan and review demographic information. Patient she resides at [facility]. Patient reports her son, Nirmal is her surrogate decision maker [phone]. Patient's reports she needs assistance completing her ADL's. and utilizes a walker to a assist with ambulation. Patient reports she will be returning back to [facility] when medically cleared.When medically cleared, SS will assist with transportation Discharge plan: [facility] Next of Kin: Son, Nirmal [phone]
--- NOTE | 2024-11-13 16:12 | ESPR_ITS ---
<Statement entered by Adeline Pickering MD - 11/13/24 16:49> I discussed with and supervised my co-resident involved in the care of this patient. I agree with the assessment and plan as documented above. Patient is a 89 year old female with PMH of DM2, HTN, asthma who comes [facility] and was admitted to the hospital for acute hypoxic respiratory failure secondary to pneumonia. She is doing well this morning, back to baseline O2 at 2L. Blood cultures grew GPC 1 out of 2 bottles. Will follow up final cultures. On steroids, cefepime. Discontinued vancomcyin and started doxycyline. Anticipate discharge back to SNF within the next 24-48 hours pending cultures. Adeline Pickering MD PGY-3 Documentation for date of: 11/13/24 Subjective Subjective Interval history: Patient was seen at bedside this morning. She was currently on 2 L of oxygen via nasal cannula and was oxygenating well. She states that her breathing has significantly improved. Still pending blood culture sensitivity. Change patient's vancomycin to doxycycline 100 mg twice daily and discontinue cefepime. Will continue monitor. Exam Vital Signs Temp Pulse Resp BP Pulse Ox O2 Del Method O2 Flow Rate 97.7 F 89 28 H 130/72 99 Nasal Cannula 4 11/13/24 11:52 11/13/24 15:42 11/13/24 15:42 11/13/24 11:52 11/13/24 15:42 11/13/24 08:00 11/13/24 15:42 FiO2 60 11/13/24 10:10 Narrative Exam General: A/O x3, no acute distress, frail elderly Eyes: PERRL, EOMI. Anicteric, vision grossly intact. Ears: No ear pain, no ear discharge, Hearing grossly intact. Nose: No nasal discharge. Mouth/Throat: Dry mucous membranes, no redness, no lesions. Neck: Neck supple, non-tender, no cervical lymphadenopathy. Lungs: Mild expiratory wheezing, No accessory muscle use. Cardio: Normal S1/S2, regular rhythm, no murmurs, no JVD Abdomen: Soft, non-tender, no palpable masses, peristalsis present, no guarding or rebound. Extremities: Symmetrical, no significant deformities, no peripheral edema , non-tender, peripheral pulses presents. Skin: No rashes, no lesions, warm to touch. Neuro: No focal neurological deficits. motor and sensory intact Psych: Cooperative, appropriate mood and effect. Objective Labs 11/16/24 04:17 11/16/24 04:17 Labs: Laboratory Results - last 24 hr 11/13/24 04:15 WBC 7.0 RBC 3.95 L Hgb 11.0 L Hct 34.8 L MCV 88 MCH 27.8 MCHC 31.6 RDW Std Deviation 44.6 Plt Count 183 Neut % (Auto) 68 Lymph % (Auto) 21 [place] % (Auto) 11 Eos % (Auto) 0 Baso % (Auto) 0 Neut # (Auto) 4.7 Lymph # (Auto) 1.5 [place] # (Auto) 0.8 Eos # (Auto) 0.0 Baso # (Auto) 0.0 Immature Gran # (Auto) 0.01 H Absolute Nucleated RBC 0.00 Immature Gran % 0 Nucleated RBC % 0 Sodium 140 Potassium 4.3 Chloride 104 Carbon Dioxide 27.7 Anion Gap 8 BUN 36 H Creatinine 1.2 Estim Creat Clear Calc 25.5 L eGFR 44 L BUN/Creatinine Ratio 30 H Glucose 146 H Calculated Osmolality 290 Calcium 8.6 Corrected Calcium 8.9 Phosphorus 3.5 Magnesium 1.9 Total Bilirubin 0.2 L AST < 10 ALT < 7 L Alkaline Phosphatase 59 Total Protein 6.1 Albumin 3.6 Globulin 2.5 Albumin/Globulin Ratio 1.4 Random Vancomycin 8.2 Quality Measures Quality Measures sepsis Current suspected stage: ruled out Possible source: unknown Blood cultures ordered: yes Antibiotic ordered: Yes Advance care planning discussed with:: patient Assessment & Plan Assessment Current Active Medications: Generic Name Dose Route Start Last Admin Trade Name Leslie PRN Reason Stop Dose Admin Acetaminophen 650 mg 11/11/24 21:40 Acetaminophen 325 Mg Tablet PO 12/11/24 21:39 Q6H PRN Fever >101.5 Albuterol/Ipratropium 3 ml 11/11/24 23:00 11/13/24 15:42 Albuterol/Ipratropium (Duoneb) Rt Suzy 3 Ml Nebu INH 12/11/24 22:59 3 ml Q4HRRT DANIEL Administration Atorvastatin Calcium 20 mg 11/12/24 21:00 11/12/24 21:57 Atorvastatin Calcium 20 Mg Tablet PO 12/12/24 20:59 20 mg HS DANIEL Administration Dextrose 25 ml 11/11/24 22:11 Dextrose 50%-Water Inj 50 Ml Syringe IV 12/11/24 22:10 Q15MIN PRN BG 50-70 responsive npo pt Dextrose 50 ml 11/11/24 22:11 Dextrose 50%-Water Inj 50 Ml Syringe IV 12/11/24 22:10 Q15MIN PRN BG <50 OR BG <70 & pt unresponsive Donepezil HCl 5 mg 11/12/24 21:00 11/12/24 21:57 Donepezil Hcl 5 Mg Tablet PO 12/12/24 20:59 5 mg HS DANIEL Administration Doxycycline Hyclate 100 mg 11/13/24 09:30 11/13/24 10:00 Doxycycline 100 Mg Tablet PO 11/20/24 09:29 100 mg BID DANIEL Administration Escitalopram Oxalate 20 mg 11/12/24 14:30 11/13/24 09:50 Escitalopram Oxalate 10 Mg Tablet PO 12/12/24 14:29 20 mg QDAY DANIEL Administration Glucagon 1 mg 11/11/24 22:11 Glucagon Inj 1 Mg Vial IM Q15MIN PRN BG <70, and no IV access Heparin Sodium (Porcine) 5,000 unit 11/11/24 21:45 11/13/24 10:15 Heparin Sod Inj 5000 Unit/Ml Vial SC 11/25/24 21:44 5,000 unit Q12H DANIEL Administration Insulin Human Lispro 0 unit 11/12/24 07:30 11/13/24 12:20 Insulin Lispro (Admelog) 1 Unit/0.01 Ml Unit SC 12/12/24 07:29 Not Given AC [facility] Protocol Methylprednisolone Sodium Succinate 40 mg 11/11/24 23:05 11/13/24 09:50 Methylprednisolone Sod Succ 40 Mg Vial IVP 11/18/24 23:04 40 mg QDAY DANIEL Administration Ondansetron HCl 4 mg 11/11/24 21:40 Ondansetron Inj 2 Mg/Ml Inj 2 Ml IV 12/11/24 21:39 Q6H PRN NAUSEA OR VOMITING Protocol Pantoprazole Sodium 40 mg 11/12/24 14:30 11/13/24 09:50 Pantoprazole 40 Mg Tablet PO 12/12/24 14:29 40 mg QDAY DANIEL Administration Sennosides 1 tab 11/12/24 09:00 11/13/24 09:00 Senna Tablet PO 12/12/24 08:59 Not Given QDAY [facility] Protocol Plan 89-year-old female with past medical history of asthma, hypertension, DM2, major depressive disorder, Alzheimer's, and hyperlipidemia was admitted to hospital on 11/11/2024 due to acute hypoxic respiratory failure likely secondary to asthma exacerbation in the setting of community-acquired pneumonia. #Acute on chronic hypoxic respiratory failure likely secondary to #Asthma exacerbation in the setting of #Community-acquired pneumonia, RSV positive #GPC bacteremia? ? Patient uses 2 L of O2 at baseline [facility] facility. ? Patient came in with increased shortness of breath, tachypnea, and tachycardia. ? Chest x-ray that showed pneumonia ? Patient is RSV positive - Blood cultures grew GPC in 1 of 2 bottles ? DC'd cefepime and vancomycin [11/11/2024?11/13/2024] Plan: ? Start doxycycline 100mg BID [11/13/2024?] ?Continue Solu-Medrol 40 mg IV daily [11/11/2024?] ? DuoNebs every 4 hours ? Blood cultures pending ? Will continue to monitor #Concern for heart failure ? Patient came in with lower extremity swelling as well as shortness of breath with some crackles on physical exam initially ? There is no echo on file ? BNP 52 Plan: ? Echo pending ? Strict QUENTIN's ? Daily weights ? Fluid restrictions daily ? Will continue to monitor #DM2 ? A1c 6.9% 11/12/2024 Plan: ? ISS ? Accu-Cheks and hypoglycemia protocol ordered ? Will continue to monitor #Hx of hypertension #Hx of hyperlipidemia ? Triglycerides 52, cholesterol 105, LDL 44, HDL 51 on 11/12/2024 ? Patient's blood pressure has been on the lower end since admission Plan: ? Atorvastatin 20 mg at bedtime ? Will hold off on antihypertensive medication at this time given patient's soft BP ? Restart amlodipine 2.5 mg daily if patient's blood pressure does become elevated #Hx of major depressive disorder #Alzheimer's disease ? Will continue patient's donepezil 5 mg at bedtime ? Will continue patient escitalopram 20 mg p.o. daily Disposition: Patient seen in med surg, continue Abx, solumedrol, duonebs, and pending echo and blood cultures sensitivity Diet: Cardiac, carb consistent GI prophylaxis: protonix DVT prophylaxis: Heparin sc Code: Full code Case disclosed with Attending Dr. Rothman and my senior Dr. Pickering PGY3 Tl Sy PGY1 Attending Provider Attestation/Addendum Face to face evaluation was performed by me. I have personally seen and examined the patient. I discussed the assessment and plan with the entire medicine team. I reviewed available medical records, imaging studies, laboratory results. I agree with the above subjective data, objective findings, assessment and plan except as corrected by me or noted below #Acute on chronic hypoxic respiratory failure #Asthma with acute exacerbation #Community-acquired pneumonia, RSV positive #Possible superimposed bacterial PNA -Continue with current treatments BiPAP as needed for hyeprcapnia, monitor clinical status closely
[2024-11-13] MEDS: INSULIN LISPRO (AdmeLOG) 1 UNIT/0.01 ML UNIT SC (17:56)
[2024-11-13] MEDS: ATORVASTATIN CALCIUM 20 MG TABLET PO (20:28)
[2024-11-13] MEDS: DONEPEZIL HCL 5 MG TABLET PO (20:28)
--- NOTE | 2024-11-13 20:39 | PC.RT ---
sputum sample collected and sent to lab
[2024-11-14] VITALS (12 sets, daily range): BP systolic 111–136; BP diastolic 56–79; PULSE 79–103; RESP 18–33; TEMP 36.2–36.4; O2SAT 92–99; BMI 11.0
[2024-11-14] MEDS: ALBUTEROL/IPRATROPIUM (Duoneb) RT SOL 3 ML NEBU INH ×6 (02:56→23:08)
[2024-11-14] MEDS: guaiFENesin SYRUP 200 MG/10 ML UDC 100 MG PO (03:53)
[2024-11-14 06:23] LABS: Basophils % (Auto) 0 % (0-2.5); Eosinophils % (Auto) 0 % (0-10); Hemoglobin 10.7 g/dL (12.0-16.0); Immature Granulocytes % (Auto) 0 % (0-0); Immature Granulocytes Auto 0.02 Thou/mm3 (0.00-0.00); Lymphocytes # (Auto) 1.8 Thou/mm3 (1.0-4.8); Lymphocytes % (Auto) 23 % (10-50); Mean Corpuscular HGB Conc 32.4 g/dl (31.0-37.0); Mean Corpuscular Hemoglobin 27.9 pg (25.0-35.0); Mean Corpuscular Volume 86 fL (80-100); Monocytes # (Auto) 0.6 Thou/mm3 (0.0-0.8); Monocytes % (Auto) 8 % (0-12); Neutrophils # (Auto) 5.5 Thou/mm3 (1.8-7.7); Neutrophils % (Auto) 69 % (37-80); Nucleated Red Blood Cell % 0 /100 WBC (0); Platelet Count 207 Thou/mm3 (140-440); RDW Standard Deviation 43.8 fL (36.4-46.3); Red Blood Count 3.83 Miln/mm3 (4.00-5.20); White Blood Count 7.9 Thou/mm3 (3.6-11.0)
[2024-11-14 06:47] LABS: Alanine Aminotransferase 8 U/L (10-49); Albumin, Serum 3.6 gm/dL (3.4-4.8); Albumin/Globulin Ratio 1.5 (1.2-2.2); Alkaline Phosphatase 54 U/L (46-116); Anion Gap 8 (7-16); Aspartate Amino Transferase 13 U/L (0-34); BUN/Creatinine Ratio 28 Ratio (12-20); Bilirubin,Total 0.3 mg/dL (0.3-1.2); Blood Urea Nitrogen 34 mg/dL (9-23); Calcium 8.6 mg/dL (8.3-10.6); Calcium (Corrected) 8.9 mg/dL (8.5-10.1); Carbon Dioxide 27.2 mMol/L (20.0-31.0); Chloride 105 mMol/L (98-107); Creatinine (Component) 1.2 mg/dL (0.6-1.3); Globulin 2.4 gm/dL (2.3-3.5); Glucose 135 mg/dL (74-106); Osmolality,Calculated 289 (275-295); Phosphorous 2.8 mg/dL (2.4-5.1); Potassium 4.5 mMol/L (3.4-5.1); Sodium 140 mMol/L (136-145); eGFR 44 See Note
[2024-11-14] MEDS: PANTOPRAZOLE 40 MG TABLET PO (08:06)
[2024-11-14] MEDS: ESCITALOPRAM OXALATE 10 MG TABLET 20 MG PO (08:06)
[2024-11-14] MEDS: SENNA TABLET 1 TAB PO (08:07)
[2024-11-14] MEDS: DOXYCYCLINE 100 MG TABLET PO ×2 (08:18→20:30)
[2024-11-14] MEDS: HEPARIN SOD INJ 5000 UNIT/ML VIAL SC ×2 (10:02→22:00)
--- NOTE | 2024-11-14 13:32 | ESPR_ITS ---
<Statement entered by Adeline Pickering MD - 11/14/24 15:24> I discussed with and supervised my co-resident involved in the care of this patient. I agree with the assessment and plan as documented above. Patient seen and examined at bedside. Continues to have dry cough. Afebrile overnight. Blood cultures grew staphylococcus epidermidis on 2 out of 2 initial blood cultures. Will continue doxycyline, steroids. Adeline Pickering MD PGY-3 Documentation for date of: 11/14/24 Subjective Subjective Interval history: Patient was seen at bedside this morning. No overnight events. Patient's blood cultures grew Staphylococcus epidermidis on 2 out of 2 initial blood cultures. Repeat blood cultures is pending. Patient did not spike any fevers and continues to improve on oxygen requirements. Anticipate possible discharge in the next 24 to 48 hours. Exam Vital Signs Temp Pulse Resp BP Pulse Ox O2 Del Method O2 Flow Rate 97.3 F 87 19 114/63 95 Nasal Cannula 2 11/14/24 12:00 11/14/24 12:11/14/24 12:00 11/14/24 12:00 11/14/24 12:00 11/14/24 12:00 11/14/24 12:00 FiO2 60 11/13/24 10:10 Narrative Exam General: A/O x3, no acute distress, frail elderly Eyes: PERRL, EOMI. Anicteric, vision grossly intact. Ears: No ear pain, no ear discharge, Hearing grossly intact. Nose: No nasal discharge. Mouth/Throat: Dry mucous membranes, no redness, no lesions. Neck: Neck supple, non-tender, no cervical lymphadenopathy. Lungs: Still present expiratory wheezing, No accessory muscle use. Cardio: Normal S1/S2, regular rhythm, no murmurs, no JVD Abdomen: Soft, non-tender, no palpable masses, peristalsis present, no guarding or rebound. Extremities: Symmetrical, no significant deformities, no peripheral edema , non-tender, peripheral pulses presents. Skin: No rashes, no lesions, warm to touch. Neuro: No focal neurological deficits. motor and sensory intact Psych: Cooperative, appropriate mood and effect. Objective Labs 11/16/24 04:17 11/16/24 04:17 Labs: Laboratory Results - last 24 hr 11/14/24 04:40 WBC 7.9 RBC 3.83 L Hgb 10.7 L Hct 33.0 L MCV 86 MCH 27.9 MCHC 32.4 RDW Std Deviation 43.8 Plt Count 207 Neut % (Auto) 69 Lymph % (Auto) 23 [place] % (Auto) 8 Eos % (Auto) 0 Baso % (Auto) 0 Neut # (Auto) 5.5 Lymph # (Auto) 1.8 [place] # (Auto) 0.6 Eos # (Auto) 0.0 Baso # (Auto) 0.0 Immature Gran # (Auto) 0.02 H Absolute Nucleated RBC 0.00 Immature Gran % 0 Nucleated RBC % 0 Sodium 140 Potassium 4.5 Chloride 105 Carbon Dioxide 27.2 Anion Gap 8 BUN 34 H Creatinine 1.2 Estim Creat Clear Calc 25.0 L eGFR 44 L BUN/Creatinine Ratio 28 H Glucose 135 H Calculated Osmolality 289 Calcium 8.6 Corrected Calcium 8.9 Phosphorus 2.8 Magnesium 2.0 Total Bilirubin 0.3 AST 13 ALT 8 L Alkaline Phosphatase 54 Total Protein 6.0 Albumin 3.6 Globulin 2.4 Albumin/Globulin Ratio 1.5 Quality Measures Quality Measures sepsis Current suspected stage: ruled out Possible source: unknown Blood cultures ordered: yes Antibiotic ordered: Yes Advance care planning discussed with:: patient Assessment & Plan Assessment Current Active Medications: Generic Name Dose Route Start Last Admin Trade Name Freq PRN Reason Stop Dose Admin Acetaminophen 650 mg 11/11/24 21:40 Acetaminophen 325 Mg Tablet PO 12/11/24 21:39 Q6H PRN Fever >101.5 Albuterol/Ipratropium 3 ml 11/11/24 23:00 11/14/24 10:38 Albuterol/Ipratropium (Duoneb) Rt Suzy 3 Ml Nebu INH 12/11/24 22:59 3 ml Q4HRRT DANIEL Administration Atorvastatin Calcium 20 mg 11/12/24 21:00 11/13/24 20:28 Atorvastatin Calcium 20 Mg Tablet PO 12/12/24 20:59 20 mg HS DANIEL Administration Dextrose 25 ml 11/11/24 22:11 Dextrose 50%-Water Inj 50 Ml Syringe IV 12/11/24 22:10 Q15MIN PRN BG 50-70 responsive npo pt Dextrose 50 ml 11/11/24 22:11 Dextrose 50%-Water Inj 50 Ml Syringe IV 12/11/24 22:10 Q15MIN PRN BG <50 OR BG <70 & pt unresponsive Donepezil HCl 5 mg 11/12/24 21:00 11/13/24 20:28 Donepezil Hcl 5 Mg Tablet PO 12/12/24 20:59 5 mg HS DANIEL Administration Doxycycline Hyclate 100 mg 11/13/24 09:30 11/14/24 08:18 Doxycycline 100 Mg Tablet PO 11/20/24 09:29 100 mg BID DANIEL Administration Escitalopram Oxalate 20 mg 11/12/24 14:30 11/14/24 08:06 Escitalopram Oxalate 10 Mg Tablet PO 12/12/24 14:29 20 mg QDAY DANIEL Administration Glucagon 1 mg 11/11/24 22:11 Glucagon Inj 1 Mg Vial IM Q15MIN PRN BG <70, and no IV access Heparin Sodium (Porcine) 5,000 unit 11/11/24 21:45 11/14/24 10:02 Heparin Sod Inj 5000 Unit/Ml Vial SC 11/25/24 21:44 5,000 unit Q12H DANIEL Administration Insulin Human Lispro 0 unit 11/12/24 07:30 11/14/24 11:20 Insulin Lispro (Admelog) 1 Unit/0.01 Ml Unit SC 12/12/24 07:29 Not Given AC DANIEL Protocol Methylprednisolone Sodium Succinate 40 mg 11/11/24 23:05 11/14/24 08:07 Methylprednisolone Sod Succ 40 Mg Vial IVP 11/16/24 23:04 40 mg QDAY DANIEL Administration Ondansetron HCl 4 mg 11/11/24 21:40 Ondansetron Inj 2 Mg/Ml Inj 2 Ml IV 12/11/24 21:39 Q6H PRN NAUSEA OR VOMITING Protocol Pantoprazole Sodium 40 mg 11/12/24 14:30 11/14/24 08:06 Pantoprazole 40 Mg Tablet PO 12/12/24 14:29 40 mg QDAY DANIEL Administration Sennosides 1 tab 11/12/24 09:00 11/14/24 08:07 Senna Tablet PO 12/12/24 08:59 1 tab QDAY DANIEL Administration Protocol Plan 89-year-old female with past medical history of asthma, hypertension, DM2, major depressive disorder, Alzheimer's, and hyperlipidemia was admitted to hospital on 11/11/2024 due to acute hypoxic respiratory failure likely secondary to asthma exacerbation in the setting of community-acquired pneumonia. #Acute on chronic hypoxic respiratory failure likely secondary to #Asthma exacerbation in the setting of #Community-acquired pneumonia, RSV positive ? Patient uses 2 L of O2 [facility] baseline [facility] ? Patient came in with increased shortness of breath, tachypnea, and tachycardia. ? Chest x-ray that showed pneumonia ? Patient is RSV positive - Blood cultures grew S. Epidermidis 2 of 2 bottles, could be a contaminant ? DC'd cefepime and vancomycin [11/11/2024?11/13/2024] Plan: ? Continue doxycycline 100mg BID [11/13/2024?] ?Continue Solu-Medrol 40 mg IV daily [11/11/2024?] ? DuoNebs every 4 hours ? Repeat Blood cultures pending ? Will continue to monitor #Concern for heart failure ? Patient came in with lower extremity swelling as well as shortness of breath with some crackles on physical exam initially ? There is no echo on file ? BNP 52 Plan: ? Echo pending ? Strict QUENTIN's ? Daily weights ? Fluid restrictions daily ? Will continue to monitor #DM2 ? A1c 6.9% 11/12/2024 Plan: ? ISS ? Accu-Cheks and hypoglycemia protocol ordered ? Will continue to monitor #Hx of hypertension #Hx of hyperlipidemia ? Triglycerides 52, cholesterol 105, LDL 44, HDL 51 on 11/12/2024 ? Patient's blood pressure has been on the lower end since admission Plan: ? Atorvastatin 20 mg at bedtime ? Will hold off on antihypertensive medication at this time given patient's soft BP ? Restart amlodipine 2.5 mg daily if patient's blood pressure does become elevated #Hx of major depressive disorder #Alzheimer's disease ? Will continue patient's donepezil 5 mg at bedtime ? Will continue patient escitalopram 20 mg p.o. daily Disposition: Patient seen in med surg, continue Abx, solumedrol, duonebs, pending echo and blood cultures grew S.epidermidis 2/2 repeat ordered, DC in next 24-48hrs Diet: Cardiac, carb consistent GI prophylaxis: protonix DVT prophylaxis: Heparin sc Code: Full code Case disclosed with Attending Dr. Rothman and my senior Dr. Pickering PGY3 Tl Sy PGY1 Attending Provider Attestation/Addendum Face to face evaluation was performed by me. I have personally seen and examined the patient. I discussed the assessment and plan with the entire medicine team. I reviewed available medical records, imaging studies, laboratory results. I agree with the above subjective data, objective findings, assessment and plan except as corrected by me or noted below #Acute on chronic hypoxic respiratory failure #Asthma with acute exacerbation #Community-acquired pneumonia, RSV positive #Possible superimposed bacterial PNA -Continue with current care Abxs switched to doxyxcyline only - monitor clsoely her clnical status
[2024-11-14] MEDS: ATORVASTATIN CALCIUM 20 MG TABLET PO (20:30)
[2024-11-14] MEDS: DONEPEZIL HCL 5 MG TABLET PO (20:30)
[2024-11-14] MEDS: guaiFENesin SYRUP 200 MG/10 ML UDC PO (22:52)
[2024-11-15] VITALS (12 sets, daily range): BP systolic 116–148; BP diastolic 59–88; PULSE 70–103; RESP 13–32; TEMP 36.1–36.6; O2SAT 92–100; BMI 31.9
[2024-11-15] MEDS: ALBUTEROL/IPRATROPIUM (Duoneb) RT SOL 3 ML NEBU INH ×6 (02:43→22:44)
[2024-11-15 05:47] LABS: Basophils % (Auto) 0 % (0-2.5); Eosinophils % (Auto) 0 % (0-10); Hematocrit 35.6 % (36.0-46.0); Hemoglobin 11.4 g/dL (12.0-16.0); Immature Granulocytes % (Auto) 0 % (0-0); Immature Granulocytes Auto 0.02 Thou/mm3 (0.00-0.00); Lymphocytes # (Auto) 2.6 Thou/mm3 (1.0-4.8); Lymphocytes % (Auto) 29 % (10-50); Mean Corpuscular Hemoglobin 27.8 pg (25.0-35.0); Mean Corpuscular Volume 87 fL (80-100); Monocytes # (Auto) 0.7 Thou/mm3 (0.0-0.8); Monocytes % (Auto) 8 % (0-12); Neutrophils # (Auto) 5.5 Thou/mm3 (1.8-7.7); Neutrophils % (Auto) 62 % (37-80); Nucleated Red Blood Cell % 0 /100 WBC (0); Platelet Count 217 Thou/mm3 (140-440); RDW Standard Deviation 43.6 fL (36.4-46.3); White Blood Count 8.9 Thou/mm3 (3.6-11.0)
[2024-11-15 06:33] LABS: Alanine Aminotransferase 10 U/L (10-49); Albumin, Serum 3.6 gm/dL (3.4-4.8); Albumin/Globulin Ratio 1.4 (1.2-2.2); Alkaline Phosphatase 57 U/L (46-116); Anion Gap 8 (7-16); Aspartate Amino Transferase 13 U/L (0-34); BUN/Creatinine Ratio 31 Ratio (12-20); Bilirubin,Total 0.3 mg/dL (0.3-1.2); Blood Urea Nitrogen 31 mg/dL (9-23); Calcium 8.3 mg/dL (8.3-10.6); Calcium (Corrected) 8.6 mg/dL (8.5-10.1); Carbon Dioxide 27.8 mMol/L (20.0-31.0); Chloride 105 mMol/L (98-107); Estimated Creatinine Clearance 30.6 mL/min (>60); Globulin 2.5 gm/dL (2.3-3.5); Glucose 100 mg/dL (74-106); Osmolality,Calculated 287 (275-295); Potassium 4.3 mMol/L (3.4-5.1); Sodium 141 mMol/L (136-145); Total Protein 6.1 gm/dL (5.7-8.2); eGFR 55 See Note
--- NOTE | 2024-11-15 10:12 | PC.SS ---
SS update: plan is to d/c the patient to [facility] today. [facility]usrat at [facility] is agreeable to accept the patient.
--- NOTE | 2024-11-15 10:50 | PC.SS ---
Addendum entered by GUCCI Camacho 11/15/24 14:23: Rounding note: possible d/c tomorrow to SNF. Addendum entered by GUCCI Camacho 11/15/24 11:02: SS update: patient pending blood cultures. Original Note: SS update: sent updated clinicals to [facility] via [facility].
[2024-11-15] MEDS: ESCITALOPRAM OXALATE 10 MG TABLET 20 MG PO (13:08)
[2024-11-15] MEDS: PANTOPRAZOLE 40 MG TABLET PO (13:09)
[2024-11-15] MEDS: HEPARIN SOD INJ 5000 UNIT/ML VIAL SC ×2 (13:09→20:48)
[2024-11-15] MEDS: SENNA TABLET 1 TAB PO (13:13)
[2024-11-15] MEDS: DOXYCYCLINE 100 MG TABLET PO ×2 (13:13→20:08)
[2024-11-15] MEDS: bisacodyL 5 MG TABEC PO (13:13)
--- NOTE | 2024-11-15 13:24 | ESPR_ITS ---
<Statement entered by Adeline Pickering MD - 11/15/24 16:19> I discussed with and supervised my co-resident involved in the care of this patient. I agree with the assessment and plan as documented above. Patient back to baseline home O2 requirements but is wheezing on exam, so will hold off discharge. Initial blood cultures grew staph epidermis in one bottle, and GPC and GPR in the second bottle so suspect contaminant. Repeat cultures were taken previously, pending result. Will continue steroids and monitor respiratory status. Adeline Pickering MD PGY-3 Documentation for date of: 11/15/24 Subjective Subjective Interval history: Patient was seen at bedside this morning. No overnight events. Patient continues to have wheezing on physical exam and she has been saturating in the 94% on 2 or 3 L of O2. Patient's repeat blood cultures are still pending, but patient has not spiked any fevers and her WBC count is downtrending. Patient states she feels better otherwise upon further investigation she stated that she has not been using oxygen at home. Will have walk test done today to see if patient does require oxygen upon discharge. Still has wheezing will keep for one more day. Echo showed ejection fraction of 45 to 50%, but patient does not appear to be fluid overloaded at this time. Exam Vital Signs Temp Pulse Resp BP Pulse Ox O2 Del Method O2 Flow Rate 97.6 F 86 21 H 121/74 94 L Nasal Cannula 1 11/15/24 12:00 11/15/24 12:00 11/15/24 12:00 11/15/24 12:00 11/15/24 12:00 11/15/24 12:00 11/15/24 12:00 FiO2 60 11/15/24 00:00 Narrative Exam General: A/O x3, no acute distress, frail elderly Eyes: PERRL, EOMI. Anicteric, vision grossly intact. Ears: No ear pain, no ear discharge, Hearing grossly intact. Nose: No nasal discharge. Mouth/Throat: Dry mucous membranes, no redness, no lesions. Neck: Neck supple, non-tender, no cervical lymphadenopathy. Lungs: wheezing, No accessory muscle use. Cardio: Normal S1/S2, regular rhythm, no murmurs, no JVD Abdomen: Soft, non-tender, no palpable masses, peristalsis present, no guarding or rebound. Extremities: Symmetrical, no significant deformities, no peripheral edema , non-tender, peripheral pulses presents. Skin: No rashes, no lesions, warm to touch. Neuro: No focal neurological deficits. motor and sensory intact Psych: Cooperative, appropriate mood and effect. Objective Labs 11/16/24 04:17 11/16/24 04:17 Labs: Laboratory Results - last 24 hr 11/15/24 04:44 WBC 8.9 RBC 4.10 Hgb 11.4 L Hct 35.6 L MCV 87 MCH 27.8 MCHC 32.0 RDW Std Deviation 43.6 Plt Count 217 Neut % (Auto) 62 Lymph % (Auto) 29 [place] % (Auto) 8 Eos % (Auto) 0 Baso % (Auto) 0 Neut # (Auto) 5.5 Lymph # (Auto) 2.6 [place] # (Auto) 0.7 Eos # (Auto) 0.0 Baso # (Auto) 0.0 Immature Gran # (Auto) 0.02 H Absolute Nucleated RBC 0.00 Immature Gran % 0 Nucleated RBC % 0 Sodium 141 Potassium 4.3 Chloride 105 Carbon Dioxide 27.8 Anion Gap 8 BUN 31 H Creatinine 1.0 Estim Creat Clear Calc 30.6 L eGFR 55 L BUN/Creatinine Ratio 31 H Glucose 100 Calculated Osmolality 287 Calcium 8.3 Corrected Calcium 8.6 Total Bilirubin 0.3 AST 13 ALT 10 Alkaline Phosphatase 57 Total Protein 6.1 Albumin 3.6 Globulin 2.5 Albumin/Globulin Ratio 1.4 Quality Measures Quality Measures sepsis Current suspected stage: ruled out Possible source: unknown Blood cultures ordered: yes Antibiotic ordered: Yes Advance care planning discussed with:: patient Assessment & Plan Assessment Current Active Medications: Generic Name Dose Route Start Last Admin Trade Name Freq PRN Reason Stop Dose Admin Acetaminophen 650 mg 11/11/24 21:40 Acetaminophen 325 Mg Tablet PO 12/11/24 21:39 Q6H PRN Fever >101.5 Albuterol/Ipratropium 3 ml 11/11/24 23:00 11/15/24 11:13 Albuterol/Ipratropium (Duoneb) Rt Suzy 3 Ml Nebu INH 12/11/24 22:59 3 ml Q4HRRT DANIEL Administration Atorvastatin Calcium 20 mg 11/12/24 21:00 11/14/24 20:30 Atorvastatin Calcium 20 Mg Tablet PO 12/12/24 20:59 20 mg HS DANIEL Administration Dextrose 25 ml 11/11/24 22:11 Dextrose 50%-Water Inj 50 Ml Syringe IV 12/11/24 22:10 Q15MIN PRN BG 50-70 responsive npo pt Dextrose 50 ml 11/11/24 22:11 Dextrose 50%-Water Inj 50 Ml Syringe IV 12/11/24 22:10 Q15MIN PRN BG <50 OR BG <70 & pt unresponsive Donepezil HCl 5 mg 11/12/24 21:00 11/14/24 20:30 Donepezil Hcl 5 Mg Tablet PO 12/12/24 20:59 5 mg HS DANIEL Administration Doxycycline Hyclate 100 mg 11/13/24 09:30 11/15/24 13:13 Doxycycline 100 Mg Tablet PO 11/20/24 09:29 100 mg BID DANIEL Administration Escitalopram Oxalate 20 mg 11/12/24 14:30 11/15/24 13:08 Escitalopram Oxalate 10 Mg Tablet PO 12/12/24 14:29 20 mg QDAY DANIEL Administration Glucagon 1 mg 11/11/24 22:11 Glucagon Inj 1 Mg Vial IM Q15MIN PRN BG <70, and no IV access Heparin Sodium (Porcine) 5,000 unit 11/11/24 21:45 11/15/24 13:09 Heparin Sod Inj 5000 Unit/Ml Vial SC 11/25/24 21:44 5,000 unit Q12H DANIEL Administration Insulin Human Lispro 0 unit 11/12/24 07:30 11/15/24 13:14 Insulin Lispro (Admelog) 1 Unit/0.01 Ml Unit SC 12/12/24 07:29 Not Given AC [facility] Protocol Methylprednisolone Sodium Succinate 40 mg 11/11/24 23:05 11/15/24 13:09 Methylprednisolone Sod Succ 40 Mg Vial IVP 11/16/24 23:04 40 mg QDAY DANIEL Administration Ondansetron HCl 4 mg 11/11/24 21:40 Ondansetron Inj 2 Mg/Ml Inj 2 Ml IV 12/11/24 21:39 Q6H PRN NAUSEA OR VOMITING Protocol Pantoprazole Sodium 40 mg 11/12/24 14:30 11/15/24 13:09 Pantoprazole 40 Mg Tablet PO 12/12/24 14:29 40 mg QDAY DANIEL Administration Sennosides 1 tab 11/12/24 09:00 11/15/24 13:13 Senna Tablet PO 12/12/24 08:59 1 tab QDAY DANIEL Administration Protocol Plan 89-year-old female with past medical history of asthma, hypertension, DM2, major depressive disorder, Alzheimer's, and hyperlipidemia was admitted to hospital on 11/11/2024 due to acute hypoxic respiratory failure likely secondary to asthma exacerbation in the setting of community-acquired pneumonia. #Acute on chronic hypoxic respiratory failure likely secondary to #Asthma exacerbation in the setting of #Community-acquired pneumonia, RSV positive ? Patient uses 2 L of O2 [facility]. ? Patient came in with increased shortness of breath, tachypnea, and tachycardia. ? Chest x-ray that showed pneumonia ? Patient is RSV positive - Blood cultures grew S. Epidermidis 2 of 2 bottles, could be a contaminant ? DC'd cefepime and vancomycin [11/11/2024?11/13/2024] Plan: ? Continue doxycycline 100mg BID [11/13/2024?] ?Continue Solu-Medrol 40 mg IV BID [11/11/2024?] ? DuoNebs every 4 hours ? Repeat Blood cultures pending ? 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 Patient came in with lower extremity swelling as well as shortness of breath with some crackles on physical exam initially ? There is no echo on file ? BNP 52 ? Echo showed EF 45-50% Plan: ? Strict QUENTIN's ? Daily weights ? Fluid restrictions daily ? Will continue to monitor #DM2 ? A1c 6.9% 11/12/2024 Plan: ? ISS ? Accu-Cheks and hypoglycemia protocol ordered ? Will continue to monitor #Hx of hypertension #Hx of hyperlipidemia ? Triglycerides 52, cholesterol 105, LDL 44, HDL 51 on 11/12/2024 ? Patient's blood pressure has been on the lower end since admission Plan: ? Atorvastatin 20 mg at bedtime ? Will hold off on antihypertensive medication at this time given patient's soft BP ? Restart amlodipine 2.5 mg daily if patient's blood pressure does become elevated #Hx of major depressive disorder #Alzheimer's disease ? Will continue patient's donepezil 5 mg at bedtime ? Will continue patient escitalopram 20 mg p.o. daily Disposition: Patient seen in med surg, continue Abx, solumedrol, duonebs, pending echo and blood cultures grew S.epidermidis 2/2 repeat ordered, DC in next 24-48hrs Diet: Cardiac, carb consistent GI prophylaxis: protonix DVT prophylaxis: Heparin sc Code: Full code Case disclosed with Attending Dr. Fairbanks and my senior Dr. Pickering PGY3 Tl Sy PGY1 Attending Provider Attestation/Addendum IJannet, , attest that I was physically present for the lira portions of the service and evaluated the patient with the resident and I reviewed and discussed the case with the resident and agree with the resident's findings and plans of care as documented above Patient seen and evaluated this AM. Patient states she is feeling improved and denies sick contacts at home. She admits to using supplemental O2 at home and denies history of tobacco use. Patient continues to have scattered wheezing. Will increase IV steroids to twice a day.
[2024-11-15] MEDS: DONEPEZIL HCL 5 MG TABLET PO (20:08)
[2024-11-15] MEDS: ATORVASTATIN CALCIUM 20 MG TABLET PO (20:08)
[2024-11-16] VITALS (11 sets, daily range): BP systolic 106–127; BP diastolic 65–78; PULSE 71–94; RESP 18–21; TEMP 35.9–36.4; O2SAT 93–99
[2024-11-16] MEDS: ALBUTEROL/IPRATROPIUM (Duoneb) RT SOL 3 ML NEBU INH ×4 (02:36→15:39)
--- NOTE | 2024-11-16 03:10 | PC.NURSE ---
Pt's HR 90 with PAC, PVCs and first degree, call MD to notify them but was unable to get a hold from them, will attempt calling them later.
[2024-11-16 05:56] LABS: Basophils % (Auto) 0 % (0-2.5); Eosinophils % (Auto) 0 % (0-10); Hematocrit 36.1 % (36.0-46.0); Hemoglobin 11.5 g/dL (12.0-16.0); Immature Granulocytes % (Auto) 0 % (0-0); Immature Granulocytes Auto 0.02 Thou/mm3 (0.00-0.00); Lymphocytes # (Auto) 0.8 Thou/mm3 (1.0-4.8); Lymphocytes % (Auto) 9 % (10-50); Mean Corpuscular HGB Conc 31.9 g/dl (31.0-37.0); Mean Corpuscular Hemoglobin 27.9 pg (25.0-35.0); Mean Corpuscular Volume 88 fL (80-100); Monocytes # (Auto) 0.1 Thou/mm3 (0.0-0.8); Monocytes % (Auto) 1 % (0-12); Neutrophils # (Auto) 7.8 Thou/mm3 (1.8-7.7); Neutrophils % (Auto) 90 % (37-80); Nucleated Red Blood Cell % 0 /100 WBC (0); Platelet Count 218 Thou/mm3 (140-440); RDW Standard Deviation 43.7 fL (36.4-46.3); Red Blood Count 4.12 Miln/mm3 (4.00-5.20); White Blood Count 8.7 Thou/mm3 (3.6-11.0)
[2024-11-16 06:32] LABS: Alanine Aminotransferase 11 U/L (10-49); Albumin, Serum 3.7 gm/dL (3.4-4.8); Albumin/Globulin Ratio 1.5 (1.2-2.2); Alkaline Phosphatase 62 U/L (46-116); Anion Gap 7 (7-16); Aspartate Amino Transferase 10 U/L (0-34); BUN/Creatinine Ratio 35 Ratio (12-20); Bilirubin,Total 0.3 mg/dL (0.3-1.2); Blood Urea Nitrogen 35 mg/dL (9-23); Calcium 8.6 mg/dL (8.3-10.6); Calcium (Corrected) 8.8 mg/dL (8.5-10.1); Carbon Dioxide 27.3 mMol/L (20.0-31.0); Chloride 103 mMol/L (98-107); Estimated Creatinine Clearance 30.6 mL/min (>60); Globulin 2.4 gm/dL (2.3-3.5); Glucose 194 mg/dL (74-106); Osmolality,Calculated 286 (275-295); Potassium 4.8 mMol/L (3.4-5.1); Sodium 137 mMol/L (136-145); Total Protein 6.1 gm/dL (5.7-8.2); eGFR 55 See Note
[2024-11-16] MEDS: INSULIN LISPRO (AdmeLOG) 1 UNIT/0.01 ML UNIT SC (07:55)
[2024-11-16] MEDS: HEPARIN SOD INJ 5000 UNIT/ML VIAL SC (09:33)
[2024-11-16] MEDS: PANTOPRAZOLE 40 MG TABLET PO (09:34)
[2024-11-16] MEDS: ESCITALOPRAM OXALATE 10 MG TABLET 20 MG PO (09:34)
[2024-11-16] MEDS: DOXYCYCLINE 100 MG TABLET PO (09:34)
[2024-11-16] MEDS: SENNA TABLET 1 TAB PO (09:34)
--- NOTE | 2024-11-16 11:58 | PC.SS ---
Addendum entered by Lenora De 11/16/24 13:47: SS Follow up note; SS was contacted by [facility]. ETA will be for [id number]. SS notified patient's nurse Raquel as well as Kayleen from [facility]. SS attempted to contact patient's son Nirmal again. SS left Voicemail. Addendum entered by Lenora De 11/16/24 12:38: Correction: SS attempted to contact patient's son, Nirmal, however did not respond, SS left Voicemail with SS contact information. Original Note: SS follow up note; SS set up transportation through [facility], Reference # [id number]. SS will Contact Patients son as well as update patient's nurse and Kayleen from [facility].
--- NOTE | 2024-11-16 13:50 | ESDS_ITS ---
<Statement entered by Jannet Fairbanks DO - 11/16/24 14:33> I, Jannet Fairbanks DO, attest that I was physically present for the lira portions of the service and evaluated the patient with the resident and I reviewed and discussed the case with the resident and agree with the resident's findings and plans of care as documented above Planned Discharge Date 11/16/24 DS: Providers Provider Date of admission: 11/11/24 21:40 Primary care physician: Rubio Cortez MD Admitting Provider: Vi Serrano MD Attending Provider on Admission: Jannet Fairbanks DO Consults: 11/13/24 16:21 PT [Referral Physical Therapy] Routine Comment: Physician Instructions: Attending Provider on DC: Jannet Fairbanks DO Discharging Provider: Jannet Fairbanks DO DS: Diagnosis Problem List Completed Was Problem List Reviewed/Reconciled?: Yes Hospital Course Hospital Course Hospital course: 89-year-old female with past medical history of asthma, hypertension, DM2, major depressive disorder, Alzheimer's, and hyperlipidemia was admitted to hospital on 11/11/2024 due to acute on chronic hypoxic respiratory failure likely secondary to asthma exacerbation in the setting of community-acquired pneumonia. In the ED patient came in with complaints of shortness of breath. Initially patient was hypotensive, tachycardic, hypoxic, and afebrile. Initial labs were unremarkable. Initial imaging included EKG which showed sinus tachycardia, chest x-ray which showed left upper lobe pneumonia, echo showed EF of 45 to 50%, and venous Doppler study which was negative for DVT. Patient was found to be RSV positive on admission. Throughout the hospital stay patient had a a lot of wheezing therefore the patient was placed on Solu-Medrol IV daily initially, but then was increased to twice daily as her wheezing did not improve. Patient was also placed on cefepime and vancomycin initially for pneumonia, but these were later changed to doxycycline 100 mg twice daily. Patient blood culture did grow Staphylococcus epididymitis initially which was mostly a contaminant as repeat blood cultures did not grow anything after 48 hours. Patient remained stable throughout the hospital stay without any further fevers and wheezing at the time of discharge had significantly improved and she had cleared bilateral breath sounds. At the time of discharge patient was stable enough [facility] Discharge plan: Please follow-up with your primary care physician 1 week after discharge You have been started on Medrol Alberto, please see dose instructions. Please continue taking doxycycline 100 mg twice daily for 3 more days. 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 Fairbanks and my senior Dr. Pickering PGY3 Tl Sy PGY1 Status at Discharge Overall status at discharge: patient is progressing back to baseline Time Spent with Patient Time attestation: Total time spent providing and/or coordinating discharge services:>35 min Exam Vital Signs Temp Pulse Resp BP Pulse Ox O2 Del Method O2 Flow Rate 96.7 F L 84 21 H 106/70 93 L Nasal Cannula 1 11/16/24 11:56 11/16/24 12:00 11/16/24 11:56 11/16/24 11:56 11/16/24 11:56 11/16/24 11:56 11/16/24 10:46 FiO2 60 11/15/24 00:00 Narrative Exam General: A/O x3, no acute distress, frail elderly Eyes: PERRL, EOMI. Anicteric, vision grossly intact. Ears: No ear pain, no ear discharge, Hearing grossly intact. Nose: No nasal discharge. Mouth/Throat: Dry mucous membranes, no redness, no lesions. Neck: Neck supple, non-tender, no cervical lymphadenopathy. Lungs: Clear AGUILA, No accessory muscle use. Cardio: Normal S1/S2, regular rhythm, no murmurs, no JVD Abdomen: Soft, non-tender, no palpable masses, peristalsis present, no guarding or rebound. Extremities: Symmetrical, no significant deformities, no peripheral edema , non-tender, peripheral pulses presents. Skin: No rashes, no lesions, warm to touch. Neuro: No focal neurological deficits. motor and sensory intact Psych: Cooperative, appropriate mood and effect. Discharge Plan Plan Patient Disposition: Xfer Skilled Nsg Fac (SNF) Patient condition on transfer: Stable Care Plan Goals: Please follow-up with your primary care physician 1 week after discharge You have been started on Medrol Alberto, please see dose instructions. Please continue taking doxycycline 100 mg twice daily for 3 more days. Please continue taking your inhalers as need and albuterol rescue inhaler as needed Please continue taking all home medications as prescribed Please come back to the ER if symptoms persist or worsen Prescriptions/Referrals Prescriptions/Med Rec: New doxycycline hyclate 100 mg capsule 100 mg PO BID Qty: 6 0RF methylprednisolone [Medrol (Alberto)] 4 mg tablets,dose pack 4 mg PO QDAY Qty: 21 0RF Continued amlodipine 2.5 mg tablet 2.5 mg PO QDAY donepezil 5 mg tablet 5 mg PO HS escitalopram oxalate 20 mg tablet 20 mg PO QDAY metformin 1,000 mg tablet 1,000 mg PO QDAY montelukast 10 mg tablet 10 mg PO QDAY simvastatin 10 mg tablet 10 mg PO QDAY ipratropium-albuterol 0.5 mg-3 mg(2.5 mg base)/3 mL solution for nebulization 3 ml INHALATION Q4H PRN (Reason: shortness of breath) acetaminophen [8 Hour Pain Reliever] 650 mg tablet extended release 650 mg PO Q6HR PRN (Reason: pain) albuterol sulfate [Ventolin HFA] See Rx Instructions inhalation Q6HR PRN (Reason: shortness of breath) Rx Instructions: inhaled every 6 hours PRN; multivitamin [Daily Multi-Vitamin] Tablet 1 tab PO QDAY tramadol 50 mg tablet 50 mg PO Q6H PRN (Reason: pain, mild) polyethylene glycol 3350 [ClearLax] 17 gram/dose powder 17 g PO QDAY lidocaine [Aspercreme (lidocaine)] 4 % adhesive patch,medicated 1 patch topical Q4H PRN (Reason: pain) Referrals: Rubio Cortez MD [Primary Care Provider] - Patient/Caregiver Discharge Instructions Other Discharge Activity Instructions:: Please follow-up with your primary care physician 1 week after discharge You have been started on Medrol Alberto, please see dose instructions. Please continue taking doxycycline 100 mg twice daily for 3 more days. Please continue taking your inhalers as need and albuterol rescue inhaler as needed Please continue taking all home medications as prescribed Please come back to the ER if symptoms persist or worsen Education Materials: RSV (Respiratory Syncytial Virus), Preventing Common Respiratory ... Print Language: Somali Stand Alone Forms: Bela Award Info., Patient Portal Info Letter Discharge Order Discharge Orders: Discharge (Routine); Ordered 11/16/24 Ordered By: Tl Sy Quality Discharge Quality Measures VTE prophylaxis
--- NOTE | 2024-11-16 13:59 | PC.NURSE ---
Patient is for discharged back to [facility]. Ambulance will pick her up at 15:30 PM per SSW. Report given to SNF nurse Lois.
== END 2024-11-16 16:42 | disposition skilled nursing facility (03) | DRG 193 ==
LOC: SERX 22:00 → SERHOLD 22:20 → S3SX 11-12 02:14
PROVIDERS: Admitting Provider Student in an Organized Health Care Education/Training Program; Emergency Provider Emergency Medicine; PCP Hospitalist; Visit Provider Internal Medicine
DX: J12.1 Respiratory syncytial virus pneumonia (principal); J96.21 Acute and chronic respiratory failure with hypoxia; J45.901 Unspecified asthma with (acute) exacerbation; F02.83 Dementia in other diseases classified elsewhere, unspecified severity, with mood disturbance; I50.22 Chronic systolic (congestive) heart failure; E11.9 Type 2 diabetes mellitus without complications; I11.0 Hypertensive heart disease with heart failure; F32.9 Major depressive disorder, single episode, unspecified; G30.9 Alzheimer's disease, unspecified; H91.90 Unspecified hearing loss, unspecified ear; E78.5 Hyperlipidemia, unspecified; I95.9 Hypotension, unspecified; Z79.84 Long term (current) use of oral hypoglycemic drugs; Z79.899 Other long term (current) drug therapy; Z99.81 Dependence on supplemental oxygen; Z91.041 Radiographic dye allergy status
CPT/HCPCS: 36415; 71045; 80053; 80061; 80202; 81001; 83036; 83605; 83615; 83690; 83735; 83880; 84100; 84145; 84439; 84443; 84484; 85025; 85610; 85730; 87040; 87077; 87081; 87086; 87186; 87205; 87400; 87502; 87634; 87811; 93005; 93225; 93306; 93970; 94640; 94762; 96372; 96374; 96375; 97162; 99291; A9270; J0456; J0692; J0696; J1643; J1815; J1940; J2919; J3370; J3475; J7050

== ENCOUNTER 2025-01-09 08:00 | Inpatient (IN) | payer MEDICARE, MEDICAID, SELFPAY ==
[2025-01-09] VITALS (12 sets, daily range): BP systolic 114–145; BP diastolic 58–89; PULSE 65–88; RESP 14–94; TEMP 36.1–36.8; O2SAT 90–100; BMI 26.4
--- NOTE | 2025-01-09 | XR_ITS ---
Examinations: MRI Brain without intravenous contrast. MRA brain without intravenous contrast. MRA carotids without intravenous contrast 3-D vascular reconstructions Date and time of exam: January 09, 2025 1322 hours INDICATIONS: Stroke alert, onset facial droop beginning 7:30 this morning Technique: Multiple axial and sagittal images of the brain have been obtained MRA brain carotid images without contrast obtained, including 3-D postprocessing, vascular maximum intensity projection images Findings: Sellaturcica is not enlarged. The optic chiasm and infundibular stalk are not remarkable. Prepontine and interpeduncular cisterns are not enlarged. No localized enlargement of the medulla or ximena. Fourth ventricle and cerebellar tonsils normal in position. Subacute hemorrhage is not seen. Fourth ventricle is midline. Mass in the cerebellopontine angle region is not evident. 7th and 8th nerve complexes exhibits symmetry. Globes are symmetrical with no retro-orbital mass. Increased white matter signal prominent Diffusion-weighted images demonstrate no focus of restricted diffusion Mass-effect upon the ventricular system is not identified. MRA carotid images degraded by patient motion. MRA brain images no cerebral large vessel occlusions Impression: Negative for acute hemorrhage, mass effect or midline shift No acute infarct Prominent chronic microvascular white matter change No cerebral large vessel arterial occlusions
--- NOTE | 2025-01-09 08:03 | PD.EDAMS ---
Altered Mental Status RME/HPI General Chief Complaint: Neuro Symptoms/Deficit Stated Complaint: POSSIBLE STROKE Time Seen by Provider: 01/09/25 08:03 Arrival date/time: 01/09/25 08:00 RME / HPI RME / HPI narrative: DR. KNIGHT MAIN ED EVALUATION 89 y/o non-ambulatory female with Hx of iodine allergy, hypertension, CHF, Alzheimer, asthma, Type II DM, and hyperlipidemia presents to ED BIB EMS c/o right facial droop and increased lethargy x 0630. EMS states SNF noticed right facial droop during morning rounds today at 0630, but did not reach out to EMS until 0730. O2 saturation on room air was 90% and is 99% following administration of 6L O2 per EMS. Patient is hard of hearing and soft spoken. Patient's initial blood sugar per EMS was 121 mg/dL. Patient's normal GCS is 14. No modifying factors reported. No other concerns or complaints expressed at this time. Related Data Home Medications ?Medication ?Instructions ?Recorded ?Confirmed acetaminophen 650 mg 650 mg PO Q6HR PRN pain 11/12/24 11/12/24 tablet,extended release (8 Hour Pain Reliever) albuterol sulfate See Rx Instructions inhalation 11/12/24 11/12/24 Q6HR PRN shortness of breath amlodipine 2.5 mg tablet 2.5 mg PO QDAY 11/12/24 11/12/24 donepezil 5 mg tablet 5 mg PO HS 11/12/24 11/12/24 escitalopram oxalate 20 mg tablet 20 mg PO QDAY 11/12/24 11/12/24 ipratropium 0.5 mg-albuterol 3 mg 3 ml inhalation Q4H PRN shortness 11/12/24 11/12/24 (2.5 mg base)/3 mL nebulization of breath soln lidocaine 4 % topical patch 1 patch topical Q4H PRN pain 11/12/24 11/12/24 (Aspercreme (lidocaine)) metformin 1,000 mg tablet 1,000 mg PO QDAY 11/12/24 11/12/24 montelukast 10 mg tablet 10 mg PO QDAY 11/12/24 11/12/24 multivitamin (Daily Multi-Vitamin 1 tab PO QDAY 11/12/24 11/12/24 tablet) polyethylene glycol 3350 17 17 g PO QDAY 11/12/24 11/12/24 gram/dose oral powder (ClearLax) simvastatin 10 mg tablet 10 mg PO QDAY 11/12/24 11/12/24 tramadol 50 mg tablet 50 mg PO Q6H PRN pain, mild 11/12/24 11/12/24 Previous Rx's ?Medication ?Instructions ?Recorded doxycycline hyclate 100 mg capsule 100 mg PO BID #6 caps 11/16/24 methylprednisolone 4 mg tablets in 4 mg PO QDAY #21 tabs 11/16/24 a dose pack (Medrol (Alberto)) Allergies Allergy/AdvReac Type Severity Reaction Status Date / Time iodine Allergy Verified 01/09/25 08:58 tositumomab iodine-131 Allergy Verified 01/09/25 08:58 Review of Systems Review of Systems Systems Reviewed: All systems reviewed, normal except as documented Narrative Review of Systems: Constitutional: DENIES; Fevers Eyes: DENIES; Loss of vision Head/Ear/Nose: DENIES; Loss of hearing Throat: DENIES; Dysphagia Cardiovascular: DENIES; Chest pain, dyspnea or syncope Respiratory: DENIES; Shortness of breath Gastrointestinal: DENIES; Rectal bleeding or melena. Genitourinary: DENIES; Dysuria (painful or difficult urination) Musculoskeletal: DENIES; Arthralgia (pain in a joint),; Skin: DENIES; Rash Neurological: SEE HPI, lethargy, right facial droop Psychiatric: DENIES; recent major life stressor, emotional problem, illicit drug use or abuse Endocrinology: DENIES; Weight change Hematologic/Lymphatic: DENIES; Abnormal bruising Allergic/Immunologic: DENIES; Urticaria (hives)? Past Medical History Past Medical History NEUROLOGIC: Positive Neurological Disorders, Dementia and Alzheimer's Disease CARDIAC: Positive Cardiac Disorders, Hypercholesterolemia and Hypertension RESPIRATORY: Positive Asthma and Pneumonia ENDOCRINE: Positive Endocrine Disorders and Diabetes Mellitus Type 2 PSYCHO/SOCIAL: Positive Depression Social History SMOKING STATUS: Unknown if ever smoked ED Exam Narrative Physical exam: Physical Exam:? General:?? ? Patient is brought in by EMS with obtundation. Reported to have a new onset of right facial droop last seen normal 2200 hrs. yesterday. The vital signs were reviewed. The patient is arousable with verbal and painful stimuli but immediately falls back to sleep and becomes inattentive. Patient had a spontaneous respirations that required no assistance at this time . O2 sats are adequate at the present time. Head & Scalp:?? ? Normocephalic, atraumatic. Face:?? ? Slight facial droop the patient is inattentive obtunded unable to really test cranial nerves properly. Appears normal and is without lesions, deformity. No apparent trauma Ears:??? Left external pinna appears normal. Right external pinna appears normal. Eyes:?? ? The sclera is anicteric. The Left and Right Orbit/Lid/Conjunctiva appears normal without swelling, discoloration or injection. Nose: ? ? The nose is without deformity, discharge or tenderness; Throat: ? ? Appears normal.? Appears dry t the patient is quite inattentive and falls asleep but the tongue appears grossly normal. Neck: The neck is supple and no apparent mass or adenopathy. Chest: The chest wall is normal in size and symmetry and has no chest wall tenderness or crepitus. The patient displays adequate ventilator effort without retractions, accessory muscle use. Patient has adequate air movement bilaterally with no wheezes and no rales. ? Cardiovascular: Regular rate and rhythm; No murmurs, rubs, or gallops; Gastrointestinal: The abdomen appears normal.? No obvious hernias or mass. The abdomen is soft and benign, non-distended, with no pain, no guarding and no rebound tenderness.? Bowel sounds are present and normal sounding.? No CVA tenderness. Genitourinary: No apparent injury or trauma. Back/Spine: No apparent injury or trauma Extremities/Musculoskeletal/lymphatic:? ? ? The bilateral upper and lower extremities are warm. There is no evidence of arterial? insufficiency. There is no evidence of venous insufficiency/edema. The patient is obtunded but displays no obvious focal deficits and spontaneously moves bilateral upper and lower extremities with painful or verbal stimuli There is no apparent, injury or trauma. Skin:? The skin is warm, dry and intact.? No rashes. No petechia. No purpura. No abnormal bruising.? The color is appropriate with no cyanosis. Mental status/Psychiatric: Mental status is obtunded no further evaluation can be made Neurological:? The patient is obtunded. The pupils are equal and reactive to light patient moves arms and lifts them with loud verbal commands seems to have equal movement bilaterally. Legs are very weak overall and atrophic and note patient is bedbound but she does wiggle her feet bilaterally. There is a right facial droop the patient is at 2 and attentive to properly evaluate the rest of the cranial nerves and pupils are equal and reactive. Course Quality Measures Suspected type of Stroke: Non Acute Last known well (date): 01/08/25 Last known well (time): 22:00 Tenecteplase given: Reason(s) TPA not given: Outside the time window not given stroke Orders Category Date Time Status Bedside Blood Glucose NOW Care 01/09/25 08:04 Active EKG (ED ONLY) *Do not use* NOW Care 01/09/25 08:04 Completed MRI Screening NOW Care 01/09/25 09:40 Active NIH Stroke Scale now Care 01/09/25 08:[address] angio stroke protocol Stat Exams 01/09/25 08:[address] stroke protocol Stat Exams 01/09/25 08:03 Completed EKG (ED Only) Stat Exams 01/09/25 08:04 Draft MR stroke protocol Stat Exams 01/09/25 Completed XR chest 1V portable Stat Exams 01/09/25 08:04 Completed Alcohol, Blood Medical Stat Lab 01/09/25 08:05 Completed Ammonia Stat Lab 01/09/25 08:05 Completed B-Type Natriuretic Peptide Stat Lab 01/09/25 08:05 Completed Blood Culture (Lab) Stat Lab 01/09/25 09:45 Received CBC Stat Lab 01/09/25 08:05 Completed Comprehensive Metabolic Panel Stat Lab 01/09/25 08:05 Completed Drug Screen,Urine Stat Lab 01/09/25 08:48 Completed Lactate (Lactic Acid) Stat Lab 01/09/25 08:05 Completed Procalcitonin Stat Lab 01/09/25 08:05 Completed Prothrombin Time with INR Stat Lab 01/09/25 08:05 Completed Troponin I Stat Lab 01/09/25 08:05 Completed Urinalysis Stat Lab 01/09/25 08:48 Completed Urinalysis, C/S if Indicated Stat Lab 01/09/25 08:48 Completed Venous Blood Gas Stat Lab 01/09/25 08:05 Completed Aspirin Supp Med 01/09/25 09:56 Discontinued 300 mg [place] X1 ONE Sodium Chloride 0.9% 1000 ml [Ns] 1,000 ml Med 01/09/25 08:03 Discontinued IV 1,000 mls/hr Sodium Chloride 0.9% 1000 ml [Ns] 2,000 ml Med 01/09/25 08:03 Active IV 150 mls/hr Vital Signs Vital signs: Vital Signs Temperature 97.9 F 01/09/25 08:59 Pulse Rate 67 01/09/25 08:59 Respiratory Rate 16 01/09/25 08:59 Blood Pressure 114/88 H 01/09/25 08:59 Pulse Oximetry (%) 100 01/09/25 08:59 Oxygen Delivery Method High Flow Nasal Cannula 01/09/25 08:59 Oxygen Flow Rate 3 01/09/25 08:59 Altered Mental Status MDM Narrative MDM Narrative:: I, Piper Gold, am scribing for and in the presence of Dr. Octavio Knight. Patient presents with altered mental status is found to have right facial droop and called a stroke alert prior to arrival. In general this is more of a global weakness on clinical presentation. Stroke alert was done CT scan came back initial was read as negative. I teleneurologist saw this patient called back and said did not believe patient is a tPA candidate. CTA is still pending as of 7 hrs. Assuming the CTA is negative we will start the patient on aspirin 81 mg daily and continue the stroke workup with an MRI. We found that patient is allergic to iodine so the CTA cannot be done. Medical workup came back with Chest x-ray portable read by me reveals no infiltrates no effusions slightly enlarged cardiac silhouette otherwise negative. Head CT report came back with no acute. CTA unable to be done because of the history of contrast dye allergy. Laboratory studies show white count 11.0 hemoglobin of 12.6 platelet count of 278,000. PT 10.6 INR 1.0 pH 7.32 pCO2 of 60 sodium 143 potassium 4.6 chloride 107 CO2 30.4 BUN 14 creatinine 1.1. Glucose 116 lactic acid 1.1 transaminases were negative total bilirubin was negative BNP was 95 troponin was negative ammonia level less than 10 urinalysis came back entirely negative cath specimen. Urine drug screen came back negative Reevaluation of the patient appears to be unchanged patient still is quite obtunded arouses to loud verbal or physical stimuli and falls asleep immediately. Appears to be sedated from medications. Review of the medication list reveals several medicines that could be causing sedation but presenting the last doses were yesterday evening. The only positive finding clinically was the O2 sats were 90% on room air and while on 2 L nasal cannula O2 sats are in the mid upper 90s with a good waveform. At this time we will admit the patient to further workup for possible stroke. I do not believe the stroke is causing the altered mental status though and appears to have some global sedation. Note this patient is demented is bedbound and could easily have some simple viral illness presenting with altered mental status. Patient been hydrated with a liter of fluid and no change at this point. There is no obvious moaning or complaints of pain and again patient is demented. I contacted her neurologist Dr. Tran discussed the case and she will be consulting. Thank you spoke with hospitalist resident Dr. carter and they will be admitting. Patient data External records reviewed:: [facility] previous records (I reviewed admission for acute hypoxic respiratory failure from 11/11/2024-11/16/2024.), EMS form and [facility] records (I reviewed past medical history and medication list.) Clinical information provided by:: EMS Social determinants that could affect healthcare access:: housing (SNF) Patient has the following chronic illnesses:: iodine allergy, hypertension, CHF, Alzheimer, asthma, Type II DM, and hyperlipidemia. How is presenting disease/condition affected by chronic disease/condition?: exacerbated by Evaluation data The following diagnostics were reviewed and interpreted by me:: lab results, radiology exam(s) and EKG tracing(s) (12-lead EKG, as interpreted by me, shows atrial fibrillation with ventricular rate of 78 bpm, no obvious STEMI, but lots of motion artifact.) Lab and/or radiology exams considered but not ordered:: Considered CT angio, but patient is allergic to iodine. Interpretation Summary: Patient: PRESTON WARD [facility] [place]. Record#: [id number] Birthdate: 1935 Age/Sex: 89 / F Location: [facility] Attending Dr: Ordering Physician: Octavio Knight MD Date of Service: 01/09/25 Procedure(s): CT stroke protocol Accession Number(s): [id number] cc: Octavio Knight MD; Rigoberto Jacobsen MD~ Examination: CT brain head without contrast. 2-D sagittal coronal reconstructions Date and time of exam:January 09, 2025, 0809 hours INDICATIONS: Stroke alert, onset right-sided facial droop lethargy altered mental status beginning this morning CTDI: vol (mGy):52.6 DLP: (mGycm):1000 Technique: Multiple CT axial sections of the brain have been obtained, 5 mm slice thickness. Contrast has not been administered. 2-D sagittal, coronal reconstructions have been obtained Low dose protocols were performed. One or more of the following dose reduction techniques were used; automated exposure control, adjustment of the mA and/or KV according to patient size, use of iterative reconstruction technique. Findings: No significant ventricular enlargement. Intra-axial or extra-axial hemorrhage density is not seen. No mass effect or midline shift Basal cisterns are not remarkable. Fourth ventricle is midline. Cranial vault intact. Impression: Negative for acute hemorrhage, mass effect or midline shift Dictated By: Rigoberto Jacobsen MD Signed By: <Electronically signed by Rigoberto Jacobsen MD in [place]> 01/09/25 0822 Patient: PRESTON WARD Med. Record#: [id number] Birthdate: 1935 Age/Sex: 89 / F [facility] Attending Dr: Ordering Physician: Octavio Knight MD Date of Service: 01/09/25 Procedure(s): XR chest 1V portable Accession Number(s): [id number] cc: Octavio Knight MD; Rigoberto Jacobsen MD; NO PRIMARY/FAMILY,PHYSICIAN~ Examination: AP chest single view Technique one AP portable upright chest single view Exam date and time: January 09, 2025, 09 hours INDICATIONS: Chest pain today FINDINGS: No significant cardiac enlargement. Ectatic thoracic aorta. No lobar pneumonia or pulmonary edema IMPRESSION: No lobar pneumonia or pulmonary edema Dictated By: Rigoberto Jacobsen MD Signed By: <Electronically signed by Rigoberto Jacobsen MD in OV> 01/09/25 1003 Medications / Prescriptions Medications or Prescriptions considered but not ordered:: None Medication administrations:: Medication Administration History Aspirin (Aspirin Ec 81 Mg Tabec) 81 mg PO X1 ONE Stop: 01/10/25 09:01 Sodium Chloride (Ns) 2,000 mls @ 150 mls/hr IV .[id number] ONE Stop: 01/09/25 21:22 Discontinued Medications Aspirin (Aspirin 300 Mg Supp) 300 mg [place] X1 ONE Stop: 01/09/25 09:57 Last Admin: 01/09/25 10:31 Dose: 300 mg Documented By: KEEGAN Sodium Chloride (Ns) 1,000 mls @ 1,000 mls/hr IV .Q1H ONE Stop: 01/09/25 09:02 Last Infusion: 01/09/25 11:32 Dose: Infused Documented By: Admin: 01/09/25 10:27 Dose: 1,000 mls/hr Documented By: KEEGAN See above. Consultations Consultation(s) initiated? (list below): Yes Consultation #1 (Physician, Specialty, Details): Spoke with tele neurologist, Dr. Erwin. Dr. Erwin states patient is not a TNK candidate at this time. Time: 08:33 Consultation #2 (Physician, Specialty, Details): Neurologist, Dr. Tran, made aware of the patient?s HPI, PMHx, lab and/or radiology results. Discussed treatment plan. Will consult an admission to the hospitalist. Time: 09:53 Consultation #3 (Physician, Specialty, Details): Dr. Carter, resident for Dr. Terry, made aware of the patient?s HPI, PMHx, lab and/or radiology results. Treatment plan was discussed. Will admit for further evaluation and management. Time: 09:54 Diagnosis Differential diagnosis altered mental status: altered mental status, dementia, hypoglycemia, hyponatremia, subarachnoid hemorrhage, sepsis and other (UTI, CVA, TIA.) Most likely diagnosis given after review of the tests above:: Altered mental status, facial droop, dementia, weakness, and bedbound. Admission Indicated Admission indicated?: indicated Admission Request Was there a request for admission?: Yes Admission Attestation Admission request attestation: Discussed case with [] from Hospitalist service regarding admission. Discussed patients ED course, exam findings, labs, and radiology results. The Hospitalist [agrees,declines] to accept the patient for admission. Disposition Plan Disposition Plan: Admit Critical Care Time Critical Care Time Critical Care Time: Yes Total Critical Care Time (min.): 45 Attestation: The high probability of sudden, clinically significant deterioration in the patient?s condition required the highest level of my preparedness to intervene urgently. The services I provided to this patient were to treat and/or prevent clinically significant deterioration. Services included the following: chart data review, reviewing nursing notes and/or old charts, documentation time, financial management consultant collaboration regarding findings and treatment options, medication orders and management, direct patient care, vital sign assessments and ordering, interpreting and reviewing diagnostic studies and lab tests. Aggregate critical care time includes only time during which I was engaged in work directly related to the patient?s care, as described above, whether at bedside or elsewhere in the Emergency Department. It did not include time spent performing other reported procedures or the services of residents, students, nurses or physician assistants. Discharge Plan Plan Patient Disposition: Admit Acute Care w/in Hospital Disposition Comment: Hospitalist to admit Dr Tran to consult Problem List Clinical Impression: Altered mental status, Facial droop, Dementia, Weakness, Bedbound
--- NOTE | 2025-01-09 08:04 | EKG_ITS ---
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: : 1935 Requested By: Octavio Knight Order Number: [id number] Reading MD: Octavio Knight Measurements Intervals [place] Rate: 78 P: AK: QRS: 39 QRSD: 97 T: 89 QT: 295 QTc: 338 Interpretive Statements ATRIAL FIBRILLATION WITH ABERRANT CONDUCTION OR VENTRICULAR PREMATURE COMPLEXES LOW QRS VOLTAGE IN PRECORDIAL LEADS [QRS DEFLECTION < 1.0 mV IN CHEST LEADS] NONSPECIFIC T-WAVE ABNORMALITY ABNORMAL RHYTHM ECG Compared to ECG 11/12/2024 20:12:49 Ventricular premature complex(es) now present Aberrant conduction of supraventricular beat(s) now present Low QRS voltage now present T-wave abnormality still present /store/S0/[id number].pdf
[2025-01-09 08:14] LABS: Base Excess, Venous 3 (-3-3); Lactate (Lactic Acid) 1.1 mMol/L (0.4-2.0); O2 Saturation, Venous 52 % (96-97); PCO2, Venous 60 mmHg (36-56); PO2, Venous 30 mmHg (15-58); pH, Venous 7.32 (7.33-7.66)
[2025-01-09 08:18] LABS: Basophils # (Auto) 0.1 Thou/mm3 (0.0-0.2); Basophils % (Auto) 1 % (0-2.5); Eosinophils # (Auto) 0.3 Thou/mm3 (0.0-0.5); Eosinophils % (Auto) 3 % (0-10); Hematocrit 39.9 % (36.0-46.0); Hemoglobin 12.6 g/dL (12.0-16.0); Immature Granulocytes % (Auto) 0 % (0-0); Immature Granulocytes Auto 0.03 Thou/mm3 (0.00-0.00); Lymphocytes # (Auto) 2.9 Thou/mm3 (1.0-4.8); Lymphocytes % (Auto) 27 % (10-50); Mean Corpuscular HGB Conc 31.6 g/dl (31.0-37.0); Mean Corpuscular Hemoglobin 28.4 pg (25.0-35.0); Mean Corpuscular Volume 90 fL (80-100); Monocytes # (Auto) 0.8 Thou/mm3 (0.0-0.8); Monocytes % (Auto) 7 % (0-12); Neutrophils % (Auto) 63 % (37-80); Nucleated Red Blood Cell % 0 /100 WBC (0); Platelet Count 278 Thou/mm3 (140-440); RDW Standard Deviation 52.9 fL (36.4-46.3); Red Blood Count 4.44 Miln/mm3 (4.00-5.20)
[2025-01-09 08:36] LABS: B-Type Natriuretic Peptide 95 pg/mL (0-100)
--- NOTE | 2025-01-09 08:38 | PD.TNEURO ---
Tele Neuro Consultation Consultation Date 01/09/25 Consultation Narrative [facility] Tele[facility]urology Consult Services Patient Name:???Marla Resendez Date of :???1935 Identification Number:??? Date of Service:???01/09/2025 08:08:07 Diagnosis:?R29.810 - Facial numbness/ Facial weakness Impression: ?89 yo F who presents with right facial droop, altered mental status. NIHSS 6. She is not a candidate for thrombolytic due to timing. ? ?Suspect either stroke or metabolic encephalopathy given increased O2 requirement, altered mentation. Recommend admission for stroke rule out as below. Our recommendations are outlined below. Recommendations: ? Stroke/Telemetry Floor ? Neuro Checks ? Bedside Swallow Eval ? Initiate or continue Aspirin 81 MG daily vs Aspirin 300mg CA ? Antihypertensives PRN if Blood pressure is greater than 220/120 or there is a concern for End organ damage/contraindications for permissive HTN. If blood pressure is greater than 220/120 give labetalol PO or IV or Vasotec IV with a goal of 15% reduction in BP during the first 24 hours. ?MRI Brain w/o contrast ?lipid panel, a1c ?statin for LDL goal < 70 Sign Out: ? Discussed with Emergency Department Provider Advanced Imaging:Advanced imaging has been ordered. Results pending. Addendum: CTA Head and Neck not performed, patient has contrast allergy. Will defer given bedbound status, patient would be at greater risk than benefit with intervention. Can be obtained on a routine basis during admission if MRI shows acute stroke. Metrics: Last Known Well: 01/08/2025 22:00:00 Dispatch Time: 01/09/2025 08:08:06 Arrival Time: 01/09/2025 08:00:00 Initial Response Time: 01/09/2025 08:10:15Symptoms: right facial droop, lethargy. Initial patient interaction: 01/09/2025 08:13:31 NIHSS Assessment Completed: 01/09/2025 08:20:15Patient is not a candidate for Thrombolytic. Thrombolytic Medical Decision: 01/09/2025 08:20:16Patient was not deemed candidate for Thrombolytic because of following reasons: LKW outside 4.5 hr window. . I personally Reviewed the CT Head and it Showed no acute hemorrhage Primary Provider Notified of Diagnostic Impression and Management Plan on: 01/09/2025 08:30:06 History of Present Illness:Patient is a 89 year old Female. Patient was brought by EMS for symptoms of right facial droop, lethargy. History is limited to ED report as the patient is altered. Patient presents from a SNF, she was LKW at 2200 last night when she went to bed. This AM at 6:30am she was noted by staff to have a new R facial droop, and was more lethargic than normal. Per report, baseline GCS 13, and she is non ambulatory at baseline. She was also having desaturations to 90% on room air, and EMS placed her on 6L O2 per report. ? Past Medical History: ?Hypertension ?Diabetes Mellitus ?Hyperlipidemia ?Dementia/MCI unable to obtain due to:?? Patient Is Confused Medications: No Anticoagulant use? No Antiplatelet use Reviewed EMR for current medications Allergies:? Reviewed Allergies Unable To Obtain Due To:?Patient Is Confused Social History: Unable To Obtain Due To Patient Status :?Patient Is Confused Family History: Family History Cannot Be Obtained Because:Patient Is Confused ROS :?ROS Cannot Be Obtained Because:? Patient Is Confused Past Surgical History: Past Surgical History Cannot Be Obtained Because: Patient Is Confused There Is No Surgical History Contributory To Today?s Visit ? Examination: BP(158/85),?Pulse(85), 1A: Level of Consciousness - Arouses to minor stimulation?+ 1 1B: Ask Month and Age - Could Not Answer Either Question Correctly?+ 2 1C: Blink Eyes & Squeeze Hands - Performs Both Tasks?+ 0 2: Test Horizontal Extraocular Movements - Normal?+ 0 3: Test Visual Price - No Visual Loss?+ 0 4: Test Facial Palsy (Use Grimace if Obtunded) - Minor paralysis (flat nasolabial fold, smile asymmetry)?+ 1 5A: Test Left Arm Motor Drift - No Drift for 10 Seconds?+ 0 5B: Test Right Arm Motor Drift - No Drift for 10 Seconds?+ 0 6A: Test Left Leg Motor Drift - No Drift for 5 Seconds?+ 0 6B: Test Right Leg Motor Drift - No Drift for 5 Seconds?+ 0 7: Test Limb Ataxia (FNF/Heel-Garduno) - Ataxia in 1 Limb?+ 1 8: Test Sensation - Mild-Moderate Loss: Less Sharp/More Dull?+ 1 9: Test Language/Aphasia - Normal; No aphasia?+ 0 10: Test Dysarthria - Normal?+ 0 11: Test Extinction/Inattention - No abnormality?+ 0 NIHSS Score:?6 NIHSS Free Text :?decreased right arm sensation ?R arm ataxia Pre-Morbid Modified Barney Scale:5 Points = Severe disability; bedridden, incontinent and requiring constant nursing care and attention Spoke with :?Dr. Knight This consult was conducted in real time using interactive audio and video technology. Patient was informed of the technology being used for this visit and agreed to proceed. Patient located in hospital and provider located at home/office setting. Patient is being evaluated for possible acute neurologic impairment and high probability of imminent or life-threatening deterioration. I spent total of 30 minutes providing care to this patient, including time for face to face visit via telemedicine, review of medical records, imaging studies and discussion of findings with providers, the patient and/or family. Dr Dorian Erwin [facility] For Inpatient follow-up with [facility] physician please call [facility] at . As we are not an outpatient service for any post hospital discharge needs please contact the hospital for assistance. If you have any questions for the [facility] physicians or need to reconsult for clinical or diagnostic changes please contact us via [facility] at .
[2025-01-09 08:48] LABS: Alanine Aminotransferase 8 U/L (10-49); Albumin, Serum 3.7 gm/dL (3.4-4.8); Albumin/Globulin Ratio 1.7 (1.2-2.2); Alcohol, Blood Medical < 10.0 mg/dL (0-10.0); Alkaline Phosphatase 81 U/L (46-116); Anion Gap 6 (7-16); Aspartate Amino Transferase 12 U/L (0-34); BUN/Creatinine Ratio 14 Ratio (12-20); Bilirubin,Total 0.4 mg/dL (0.3-1.2); Blood Urea Nitrogen 15 mg/dL (9-23); Calcium 9.2 mg/dL (8.3-10.6); Calcium (Corrected) 9.4 mg/dL (8.5-10.1); Carbon Dioxide 30.4 mMol/L (20.0-31.0); Chloride 107 mMol/L (98-107); Creatinine (Component) 1.1 mg/dL (0.6-1.3); Globulin 2.2 gm/dL (2.3-3.5); Glucose 116 mg/dL (74-106); Osmolality,Calculated 286 (275-295); Potassium 4.6 mMol/L (3.4-5.1); Procalcitonin 0.11 ng/ml (0.0-0.49); Sodium 143 mMol/L (136-145); Total Protein 5.9 gm/dL (5.7-8.2); Troponin I < 0.020 ng/mL (0.0-0.045); eGFR 49 See Note
[2025-01-09 08:50] LABS: Ammonia < 10 uMol/L (11-32)
[2025-01-09 08:52] LABS: Prothrombin Time 10.6 Seconds (9.0-12.2)
[2025-01-09 08:54] LABS: Collection Type, Urine Clean Catch; RBC,Urine 0 /hpf (0-3)
[2025-01-09 09:08] LABS: Bilirubin,Urine Negative (Negative); Blood,Urine Negative (Negative); Clarity,Urine Clear (Clear/Hazy); Color,Urine Colorless (Lt Yel-Yel); Culture Indicated,Urine Not Indicated; Glucose, Urine Negative (Negative); Ketones,Urine Negative (Negative); Leukocyte Esterase,Urine Negative (Negative); Nitrite,Urine Negative (Negative); Protein,Urine Negative (Neg - Trace); Specific Gravity,Urine 1.007 (1.001-1.035); Squamous Epithelial Cell,Urine < 1 /hpf (0-5); Urobilinogen,Urine Negative mg/dL (0.0-1.0); WBC,Urine < 1 /hpf (0-5)
[2025-01-09 09:14] LABS: Amphetamine/Methamp Scrn,U Negative (Negative); Barbiturate Screen,Urine Negative (Negative); Benzodiazepines Screen,Urine Negative (Negative); Benzoylecgonine Screen, Ur Negative (Negative); Fentanyl Screen,Urine Negative (Negative); Opiate Screen,Urine Negative (Negative); THC Screen,Urine Negative (Negative)
[2025-01-09] MEDS: SODIUM CHLORIDE 0.9% 1000 ML 1,000 ML IV (10:27)
[2025-01-09] MEDS: ASPIRIN 300 MG SUPP PR (10:31)
--- NOTE | 2025-01-09 13:23 | ESHP_ITS ---
<Statement entered by Nakul Ash MD - 01/17/25 09:20> I reviewed above note and agree with findings and plans. I have also personally examined the patient with medicine team and went over assessment and plan with medical team including design engineering intern and resident physician. Documentation for date of: 01/09/25 HPI History of Present Illness History of present illness: 89-year-old Kazakh-speaking female patient with significant medical history of hypertension, type 2 diabetes mellitus, asthma, major depressive disorder, Alzheimer's dementia, hyperlipidemia and difficulty ambulating was brought in from SNF for drooping of mouth and difficulty in speaking. At baseline patient is AOx2-3 and able to carry on conversation. Patient was noted by HANG GLIDING INSTRUCTOR to be less responsive and having drooping of mouth. Head CT was negative for hemorrhage. In ED GCS was 14. Neurotele was consulted who recommended further workup of CVA vs. acute metabolic encephalopathy. CBC was unremarkable. VBG indicated pH 7.32, pCO2 60, bicarb 30. Chem lab was unremarkable. Urinalysis and toxicology were negative. Patient will be admitted for CVA workup. Medical Hx: DM2, HTN, asthma, MDD, Alzheimer's dementia, HLD, bed/wheelchair bound Medication (needs reconciliation): Donepezil 5 mg daily, Amlodipine 2.5 mg daily, Simvastatin 10 mg daily, Metformin 1000 mg daily, Ventolin as needed, Escitalopram 20 mg daily, Lyrica 75 mg BID, Singulair 10 mg Qday Surgical Hx: Unable to obtain information Allergies: Iodine Social history: From [facility] Code Status: Full Code Review of Systems Review of Systems ROS Unobtainable: unobtainable due to mental status and unobtainable due to medical condition Exam Vital Signs Temp Pulse Resp BP Pulse Ox O2 Del Method O2 Flow Rate 98.3 F 72 17 145/81 H 100 High Flow Nasal Cannula 3 01/09/25 11:12 01/09/25 11:12 01/09/25 11:12 01/09/25 11:12 01/09/25 11:12 01/09/25 11:12 01/09/25 11:12 Narrative Exam Constitutional: well-developed, well-nourished, sleeping in bed, opening eyes upon questioning HEENT: NCAT, reactive round pupils b/l, patent nares b/l, moist mucous membranes Lung: CTAB, no wheezing, no rhonchi Heart: Regular S1S2, no murmurs, gallops, or rubs Abdomen: Soft, non-distended, non-tender, bowel sounds present Extremities: No cyanosis, clubbing, or edema, LE pulses present b/l Neurologic: Unable to perform due to patient's condition Skin: Warm, dry, no lesions or rashes noted Results: Labs 01/09/25 08:05 01/09/25 08:05 Labs: Short CBC 01/09/25 Range/Units 08:05 WBC 11.0 (3.6-11.0) Thou/mm3 Hgb 12.6 (12.0-16.0) g/dL Hct 39.9 (36.0-46.0) % Plt Count 278 (140-440) Thou/mm3 BMP 01/09/25 08:05 Sodium 143 Potassium 4.6 Chloride 107 Carbon Dioxide 30.4 BUN 15 Creatinine 1.1 Glucose 116 H Calcium 9.2 Cardiac Enzymes 01/09/25 Range/Units 08:05 Troponin I < 0.020 (0.0-0.045) ng/mL Liver Function 01/09/25 Range/Units 08:05 Total Bilirubin 0.4 (0.3-1.2) mg/dL AST 12 (0-34) U/L ALT 8 L (10-49) U/L Alkaline Phosphatase 81 (46-116) U/L Albumin 3.7 (3.4-4.8) gm/dL Urine 01/09/25 Range/Units 08:48 Urine Color Colorless A (Lt Yel-Yel) Urine Clarity Clear (Clear/Hazy) Urine pH 7.0 (5.0-7.0) Ur Specific [place] 1.007 (1.001-1.035) Urine Protein Negative (Neg - Trace) Urine Glucose (UA) Negative (Negative) ABG Interpretation ABG results: 01/09/25 08:05 VBG pH 7.32 L VBG pCO2 60 H VBG pO2 30 VBG Base Excess 3 Quality Measures Quality Measures stroke Suspected type of Stroke: Non Acute Last known well (date): 01/08/25 Last known well (time): 22:00 Tenecteplase given: Reason(s) Tenecteplase not given: Outside the time window not given Rehab services: Speech Language Pathology eval ordered VTE Prophylaxis: mechanical Antithrombotic by day 2:: not indicated (describe) (Outside window) Statin ordered: not ordered (Not recommended per Neuro-tele) Anticoagulation ordered for A-fib or flutter (current or hx): not indicated Advance care planning discussed with:: other Medications Home Medications and Allergies Home Medications ?Medication ?Instructions ?Recorded ?Confirmed ?Type acetaminophen 650 mg 650 mg PO Q6HR PRN pain 12/0511/12/24 History tablet,extended release (8 Hour Pain Reliever) albuterol sulfate See Rx Instructions inhalati on 11/12/24 11/12/24 History Q6HR PRN shortness of breath amlodipine 2.5 mg tablet 2.5 mg PO QDAY 11/12/2412/05 History donepezil 5 mg tablet 5 mg PO HS 11/12/24 11/12/24 History escitalopram oxalate 20 mg tablet 20 mg PO QDAY 11/12/24 History ipratropium 0.5 mg-albuterol 3 mg 3 ml inhalation Q4H PRN shortness 11/12/24 11/12/24 History (2.5 mg base)/3 mL nebulization of breath soln lidocaine 4 % topical patch 1 patch topical Q4H PRN pa in 11/12/24 11/12/24 History (Aspercreme (lidocaine)) metformin 1,000 mg tablet 1,000 mg PO QDAY 11/12/24 History montelukast 10 mg tablet 10 mg PO QDAY 11/12/2411/12 History multivitamin (Daily Multi-Vitamin 1 tab PO QDAY 11/12/24 History tablet) polyethylene glycol 3350 17 17 g PO QDAY 11/12/2412/05 History gram/dose oral powder (ClearLax) simvastatin 10 mg tablet 10 mg PO QDAY 11/12/2411/12 History tramadol 50 mg tablet 50 mg PO Q6H PRN pain, mild 11/12/24 11/12/24 History Allergies Allergy/AdvReac Type Severity Reaction Status Date / Time iodine Allergy Verified 01/09/25 08:58 tositumomab iodine-131 Allergy Verified 01/09/25 08:58 Visit Medications Sodium Chloride (Ns) 2,000 mls @ 150 mls/hr IV .[id number] ONE Stop: 01/09/25 21:22 Discontinued Medications Aspirin (Aspirin 300 Mg Supp) 300 mg CO X1 ONE Stop: 01/09/25 09:57 Last Admin: 01/09/25 10:31 Dose: 300 mg Sodium Chloride (Ns) 1,000 mls @ 1,000 mls/hr IV .Q1H ONE Stop: 01/09/25 09:02 Last Infusion: 01/09/25 11:32 Dose: Infused Assessment & Plan Plan 89 y/io female patient with history of Alzheimer's dementia, DM2, HTN and HLD admitted for CVA/stroke work-up after having drooping of mouth and slurred speech. #Acute CVA #Stroke workup #Acute encephalopathy, metabolic vs. toxic vs. epileptic Patient with history of HTN, DM2 and HLD On admission with symptoms of slurred speech hand drooping of mouth At baseline patient able to carry on conversation and answer question On examination patient with GCS of [address] negative Neuro-tele consulted: NIHSS score of 6 Patient out of time window for IV thrombolytics Plan: -Patient admitted to telemetry -Neurochecks every 4 hours -HgB A1c and Lipid panel ordered -DVT prophylaxis -ASA 81 mg -Permissive HTN -Head of bed 30 degrees -Q4hr neurochecks -Seizure precautions -TTE with bubble study ordered -Speech therapy and physical therapy ordered -Neurology Dr Tran consulted, recommendations are greatly appreciated -Stroke protocol breain MRI ordered -Castellano cath ordered -Follow up TSH, T4 and B12 levels # Type 2 diabetes mellitus Patient has history of type 2 diabetes mellitus on metformin 1000 mg daily. Plan: -No SSI as patient is NPO -Follow hemoglobin A1c in a.m. -Will consider starting SSI #Hypertension #Hyperlipidemia Patient on amlodipine 2.5 mg daily and simvastatin 10 mg daily at home Plan: -Permissive hypertension in setting of CVA -Follow lipid panel in a.m. #Alzheimer's dementia #Major depressive disorder Patient on donepezil 5 mg daily and escitalopram 20 mg daily at home Plan: -Consider resuming home meds in a.m. after reconciliation Health Maintenance Dispo:Admitted for CVA workup, Neurology consulted, Echo and MRI ordered Diet: NPO until passing of swallow test DVT/PPx: SCD GI ppx:Protonix Lines: PIV and Castellano Code Status: Full Code This patient care was discussed with my attending Dr. Nilsa Carter MD PGY-2 Disclaimer: Minor errors in manager employee relations may be present since this note was dictated by speech recognition software.
--- NOTE | 2025-01-09 14:55 | PC.SS ---
Initial assessment: this is 89 year old female pending admission to med/tele. Patient is a long-term resident at [facility]. Patient requires assistance with transfers, utilizes a wheelchair at the facility. Patient does not typically use O2 at the SNF however is aligned with respiratory treatments. Patient's facility PCP Dr. Cortez. Patient's emergency contact is her son, Nirmal Resendez . Patient to return to SNF upon discharge. Patient will require child welfare social worker to arrange transportation upon return to SNF. D/c plan: return to [facility] Next of kin: son, Nirmal Resendez
[2025-01-09] MEDS: SODIUM CHLORIDE 0.9% 1000 ML 2,000 ML 150 ML IV (15:41)
[2025-01-09] MEDS: SODIUM CHLORIDE 0.9% 1000 ML 2,000 ML 100 ML IV (15:42)
--- NOTE | 2025-01-09 16:16 | PC.NURSE ---
RN spoke with Alina at [facility] and update was provided for plan of admission and pending MRI results. Per Alina patient is more responsive, patient has a regular diet at facility but is nonambulatory.
--- NOTE | 2025-01-09 16:18 | PC.NURSE ---
Addendum entered by Belen Lemon RN 01/09/25 16:24: time note for 829 Original Note: Patient presents to ED via ambulance from [facility]. Per EMS staff noted patient to be more lethargic today, LKW at 2200 was checked on by staff at 0630 am noted right side facial droop and lethargy, per staff baseline GCS 14, now GCS 13. Patient opens eyes spontaneous, maltese speaking, attempts to respond verbally, noted some slow to respond. Patient to CT via gurney with medic.
--- NOTE | 2025-01-09 18:19 | PC.NURSE ---
Nirmal Resendez [phone] please call with any questions or concerns.
--- NOTE | 2025-01-09 18:44 | PC.NURSE ---
Rn report given to Kassy DO, patient will transfer to room 273.
--- NOTE | 2025-01-09 23:33 | PD.VCONSULT1 ---
Telemedicine visit statement This visit was conducted with the use of interactive audio and video telecommunications system that permits real time communication between the patient and the provider. Patient's verbal consent for virtual visit was obtained on 01/09/25 at 2333. History of Present Illness History of Present Illness History of present illness: Patient is a 89-year-old female patient with significant medical history of hypertension, type 2 diabetes mellitus, asthma, major depressive disorder, Alzheimer's dementia, hyperlipidemia and difficulty ambulating was brought in from SNF for drooping of mouth and difficulty in speaking. At baseline patient is AOx2-3 and able to carry on conversation. Patient was noted by HIGH LIFT DRIVER to be less responsive and having drooping of mouth. Head CT was negative for hemorrhage. In ER GCS was 14. Teleneuro was consulted who recommended further workup of CVA vs. acute metabolic encephalopathy. CBC was unremarkable. Venous blood gases indicated pH 7.32, pCO2 60, bicarb 30. Chem lab was unremarkable. Urinalysis and toxicology were negative. Patient will be admitted for CVA workup. In-house neurology was consulted to follow. Past Medical History Past Medical History NEUROLOGIC: Positive Neurological Disorders, Dementia and Alzheimer's Disease CARDIAC: Positive Cardiac Disorders, Hypercholesterolemia and Hypertension RESPIRATORY: Positive Asthma and Pneumonia ENDOCRINE: Positive Endocrine Disorders and Diabetes Mellitus Type 2 PSYCHO/SOCIAL: Positive Depression Social History SMOKING STATUS: Unknown if ever smoked Meds Home Medications and Allergies Home Medications ?Medication ?Instructions ?Recorded ?Confirmed ?Type acetaminophen 650 mg 650 mg PO Q6HR PRN pain 11/12/24 11/12/24 History tablet,extended release (8 Hour Pain Reliever) albuterol sulfate See Rx Instructions inhalation 11/12/24 11/12/24 History Q6HR PRN shortness of breath amlodipine 2.5 mg tablet 2.5 mg PO QDAY 11/12/24 11/12/24 History donepezil 5 mg tablet 5 mg PO HS 11/12/24 11/12/24 History escitalopram oxalate 20 mg tablet 20 mg PO QDAY 11/12/24 11/12/24 History ipratropium 0.5 mg-albuterol 3 mg 3 ml inhalation Q4H PRN shortness 11/12/24 11/12/24 History (2.5 mg base)/3 mL nebulization of breath soln lidocaine 4 % topical patch 1 patch topical Q4H PRN pain 11/12/24 11/12/24 History (Aspercreme (lidocaine)) metformin 1,000 mg tablet 1,000 mg PO QDAY 11/12/24 11/12/24 History montelukast 10 mg tablet 10 mg PO QDAY 11/12/24 11/12/24 History multivitamin (Daily Multi-Vitamin 1 tab PO QDAY 11/12/24 11/12/24 History tablet) polyethylene glycol 3350 17 17 g PO QDAY 11/12/24 11/12/24 History gram/dose oral powder (ClearLax) simvastatin 10 mg tablet 10 mg PO QDAY 11/12/24 11/12/24 History tramadol 50 mg tablet 50 mg PO Q6H PRN pain, mild 11/12/24 11/12/24 History Allergies Allergy/AdvReac Type Severity Reaction Status Date / Time iodine Allergy Verified 01/09/25 08:58 tositumomab iodine-131 Allergy Verified 01/09/25 08:58 Virtual exam Vital Signs Temp Pulse Resp BP Pulse Ox O2 Del Method O2 Flow Rate 97.0 F 71 14 128/86 H 98 Nasal Cannula 2 01/09/25 20:00 01/09/25 20:00 01/09/25 20:00 01/09/25 20:00 01/09/25 20:00 01/09/25 20:00 01/09/25 20:00 Results Labs 01/09/25 08:05 01/09/25 08:05 Labs: Short CBC 01/09/25 Range/Units 08:05 WBC 11.0 (3.6-11.0) Thou/mm3 Hgb 12.6 (12.0-16.0) g/dL Hct 39.9 (36.0-46.0) % Plt Count 278 (140-440) Thou/mm3 BMP 01/09/25 08:05 Sodium 143 Potassium 4.6 Chloride 107 Carbon Dioxide 30.4 BUN 15 Creatinine 1.1 Glucose 116 H Calcium 9.2 Cardiac Enzymes 01/09/25 Range/Units 08:05 Troponin I < 0.020 (0.0-0.045) ng/mL Liver Function 01/09/25 Range/Units 08:05 Total Bilirubin 0.4 (0.3-1.2) mg/dL AST 12 (0-34) U/L ALT 8 L (10-49) U/L Alkaline Phosphatase 81 (46-116) U/L Albumin 3.7 (3.4-4.8) gm/dL Urine 01/09/25 Range/Units 08:48 Urine Color Colorless A (Lt Yel-Yel) Urine Clarity Clear (Clear/Hazy) Urine pH 7.0 (5.0-7.0) Ur Specific [place] 1.007 (1.001-1.035) Urine Protein Negative (Neg - Trace) Urine Glucose (UA) Negative (Negative) ABG Interpretation ABG results: 01/09/25 08:05 VBG pH 7.32 L VBG pCO2 60 H VBG pO2 30 VBG Base Excess 3 Assessment & Plan Problem List (1) Altered mental status: Status: Acute Assessment and plan: Suspected acute CVA/metabolic encephalopathy continue to monitor her closely. Follow-up with MRI brain and EEG to evaluate further. Continue ASA and statin. (2) Dementia: Status: Chronic Assessment and plan: Continue with Donepezil
[2025-01-10] VITALS (8 sets, daily range): BP systolic 142–148; BP diastolic 64–86; PULSE 64–82; RESP 17–92; TEMP 36.1–36.3; O2SAT 92–97
--- NOTE | 2025-01-10 03:52 | PC.NURSE ---
[employer] downtime occurred on <01/10/25> from <0200> to <0350>.
[2025-01-10] MEDS: SODIUM CHLORIDE 0.9% 1000 ML 2,000 ML 100 ML IV (04:18)
[2025-01-10 06:00] LABS: Basophils # (Auto) 0.1 Thou/mm3 (0.0-0.2); Basophils % (Auto) 1 % (0-2.5); Eosinophils # (Auto) 0.3 Thou/mm3 (0.0-0.5); Eosinophils % (Auto) 2 % (0-10); Hematocrit 36.9 % (36.0-46.0); Hemoglobin 11.8 g/dL (12.0-16.0); Immature Granulocytes % (Auto) 0 % (0-0); Immature Granulocytes Auto 0.03 Thou/mm3 (0.00-0.00); Lymphocytes # (Auto) 2.2 Thou/mm3 (1.0-4.8); Lymphocytes % (Auto) 20 % (10-50); Mean Corpuscular Hemoglobin 28.8 pg (25.0-35.0); Mean Corpuscular Volume 90 fL (80-100); Monocytes # (Auto) 0.6 Thou/mm3 (0.0-0.8); Monocytes % (Auto) 6 % (0-12); Neutrophils # (Auto) 7.6 Thou/mm3 (1.8-7.7); Neutrophils % (Auto) 71 % (37-80); Nucleated Red Blood Cell % 0 /100 WBC (0); Platelet Count 237 Thou/mm3 (140-440); RDW Standard Deviation 52.5 fL (36.4-46.3); White Blood Count 10.7 Thou/mm3 (3.6-11.0)
[2025-01-10 07:26] LABS: Alanine Aminotransferase < 7 U/L (10-49); Albumin, Serum 3.3 gm/dL (3.4-4.8); Albumin/Globulin Ratio 1.7 (1.2-2.2); Alkaline Phosphatase 69 U/L (46-116); Anion Gap 7 (7-16); Aspartate Amino Transferase 12 U/L (0-34); BUN/Creatinine Ratio 14 Ratio (12-20); Bilirubin,Total 0.4 mg/dL (0.3-1.2); Blood Urea Nitrogen 11 mg/dL (9-23); Calcium 8.3 mg/dL (8.3-10.6); Calcium (Corrected) 8.9 mg/dL (8.5-10.1); Carbon Dioxide 25.5 mMol/L (20.0-31.0); Cardiac Risk Estimate 2.8 RATIO (3.7-5.6); Chloride 111 mMol/L (98-107); Cholesterol 135 mg/dL (132-200); Creatinine (Component) 0.8 mg/dL (0.6-1.3); Estimated Creatinine Clearance 40.5 mL/min (>60); Free T4 (Free Thyroxine) 0.79 ng/dL (0.89-1.76); Glucose 81 mg/dL (74-106); HDL Cholesterol 49 mg/dL (40-60); LDL Cholesterol,Calculated 71 mg/dL (0-130); Magnesium 1.6 mg/dL (1.6-2.6); Osmolality,Calculated 283 (275-295); Phosphorous 3.9 mg/dL (2.4-5.1); Potassium 4.6 mMol/L (3.4-5.1); Sodium 143 mMol/L (136-145); Thyroid Stimulating Hormone 0.79 uIU/mL (0.55-4.78); Total Protein 5.3 gm/dL (5.7-8.2); Triglycerides 75 mg/dL (30-150); eGFR > 60 See Note
[2025-01-10 07:45] LABS: Vitamin B12 451 pg/mL (211-911)
[2025-01-10 08:03] LABS: Glucose Estimated Average 143 mg/dL (80-131); Hemoglobin A1C 6.6 % Hgb (4.8-6.0)
[2025-01-10] MEDS: Magnesium Sulfate 4 GM Ivpb 4 GM/50 ML BAG IV (08:58)
[2025-01-10] MEDS: PANTOPRAZOLE INJ 40 MG VIAL IV (08:58)
[2025-01-10] MEDS: ASPIRIN EC 81 MG TABEC PO (09:40)
[2025-01-10] MEDS: MULTIVITAMINS TABLET 1 TAB PO (09:40)
[2025-01-10] MEDS: ESCITALOPRAM OXALATE 10 MG TABLET 20 MG PO (09:40)
--- NOTE | 2025-01-10 11:38 | ESPR_ITS ---
Documentation for date of: 01/10/25 Subjective Subjective Interval history: Patient seen and examined at bedside. No acute overnight events. MRI was done which was negative for acute hemorrhage, mass effect or midline shift. Otherwise, patient's mentation is to be back at baseline, no dysarthria, no facial droop. Exam Vital Signs Temp Pulse Resp BP Pulse Ox O2 Del Method O2 Flow Rate 97.0 F 74 20 143/75 H 93 L Nasal Cannula 2 01/10/25 08:00 01/10/25 10:05 01/10/25 08:00 01/10/25 08:00 01/10/25 08:00 01/09/25 23:52 01/09/25 23:52 Narrative Exam GENERAL: AAO2, slightly confused NEURO: TELEVISION HOST grossly intact, moves extremities x4 HEENT: Moist mucosa. Eyes open, symmetrical, & clear CARDIO: No chest pain on palpation. Heart RRR, no obvious murmurs PULM: No noted coughing/dyspnea. Lungs CTA B/L, no R/W/R GI: Abdomen soft, nondistended, no pain on palpation. BSx4 URO/POOL SERVICER:: No further abnormalities noted. SKIN/MSK/EXT: No wounds/rashes/edema/amputations, no pain on palpation. Pedal pulses present B/L Objective Labs 01/10/25 05:36 01/10/25 05:36 Labs: Laboratory Results - last 24 hr 01/10/25 05:36 WBC 10.7 RBC 4.10 Hgb 11.8 L Hct 36.9 MCV 90 MCH 28.8 MCHC 32.0 RDW Std Deviation 52.5 H Plt Count 237 D Neut % (Auto) 71 Lymph % (Auto) 20 [place] % (Auto) 6 Eos % (Auto) 2 Baso % (Auto) 1 Neut # (Auto) 7.6 Lymph # (Auto) 2.2 [place] # (Auto) 0.6 Eos # (Auto) 0.3 Baso # (Auto) 0.1 Immature Gran # (Auto) 0.03 H Absolute Nucleated RBC 0.00 Immature Gran % 0 Nucleated RBC % 0 Sodium 143 Potassium 4.6 Chloride 111 H Carbon Dioxide 25.5 Anion Gap 7 BUN 11 Creatinine 0.8 Estim Creat Clear Calc 40.5 L eGFR > 60 BUN/Creatinine Ratio [address] Glu mg/dL 143 H Hemoglobin A1c 6.6 H Calculated Osmolality 283 Calcium 8.3 Corrected Calcium 8.9 Phosphorus 3.9 Magnesium 1.6 Total Bilirubin 0.4 AST 12 ALT < 7 L Alkaline Phosphatase 69 Total Protein 5.3 L Albumin 3.3 L Globulin 2.0 L Albumin/Globulin Ratio 1.7 Triglycerides 75 Cholesterol 135 LDL Cholesterol, Calc 71 HDL Cholesterol 49 Cholesterol/HDL Ratio 2.8 L Vitamin B12 451 TSH 0.79 Free T4 0.79 L ABG Interpretation ABG results: 01/09/25 08:05 VBG pH 7.32 L VBG pCO2 60 H VBG pO2 30 VBG Base Excess 3 Quality Measures Quality Measures stroke Suspected type of Stroke: Non Acute Last known well (date): 01/08/25 Last known well (time): 22:00 Tenecteplase given: Reason(s) Tenecteplase not given: Outside the time window not given Rehab services: PT evaluation ordered and Speech Language Pathology eval ordered VTE Prophylaxis: mechanical Antithrombotic by day 2:: ordered Statin ordered: >75 y/o moderate or high intensity dose Anticoagulation ordered for A-fib or flutter (current or hx): not indicated Advance care planning discussed with:: patient Assessment & Plan Assessment Current Active Medications: Generic Name Dose Route Start Last Admin Trade Name Freq PRN Reason Stop Dose Admin Albuterol/Ipratropium 3 ml 01/09/25 17:13 Albuterol/Ipratropium (Duoneb) Rt Suzy 3 Ml Nebu INH 02/08/25 18:59 Q4HRRT PRN wheezing, sob Aspirin 81 mg 01/10/25 09:00 01/10/25 09:40 Aspirin Ec 81 Mg Tabec PO 02/09/25 08:59 81 mg QDAY DANIEL Administration Atorvastatin Calcium 80 mg 01/10/25 21:00 Atorvastatin Calcium 20 Mg Tablet PO 02/09/25 20:59 HS DANIEL Donepezil HCl 5 mg 01/10/25 21:00 Donepezil Hcl 5 Mg Tablet PO 02/09/25 20:59 HS DANIEL Escitalopram Oxalate 20 mg 01/10/25 09:00 01/10/25 09:40 Escitalopram Oxalate 10 Mg Tablet PO 02/09/25 08:59 20 mg QDAY DANIEL Administration Sodium Chloride 2,000 mls @ 100 mls/hr 01/09/25 15:15 01/10/25 04:18 Ns IV 02/08/25 15:14 100 mls/hr .Q20H DANIEL Administration Magnesium Sulfate 4 gm in 50 mls @ 12.5 mls/hr 01/10/25 08:27 01/10/25 08:58 Magnesium Sulfate Ivpb IV 01/10/25 12:26 12.5 mls/hr X1 ONE Administration Labetalol HCl 5 mg 01/09/25 23:59 Labetalol Inj 5 Mg/Ml Vial 20 Ml IVP 02/08/25 22:10 Q6HR PRN SBP > 220 and DBP > 110 Multivitamins 1 tab 01/10/25 09:00 01/10/25 09:40 Multivitamins Tablet PO 02/09/25 08:59 1 tab QDAY DANIEL Administration Pantoprazole Sodium 40 mg 01/10/25 09:00 01/10/25 08:58 Pantoprazole Inj 40 Mg Vial IV 02/09/25 08:59 40 mg QDAY DANIEL Administration Plan Summary: The patient is an 89-year-old female with past medical history of hypertension, T2DM, asthma, Alzheimer's, MDD, hyperlipidemia who presented to the ED on 01/09/2025 with difficulty speaking and reported facial droop. Admitted for acute encephalopathy due to CVA rule out. #Acute encephalopathy #Acute CVA ruled out The patient presented with difficulty speaking, described as slurred speechand reported facial droop. Head CT was done which was negative, teleneuro was consulted with and patient had an NIHSS score of 6. She was out of TNK window. Inpatient neurology consulted, MRI was done which was also negative. Today, patient's mentation is back at baseline, speech is improved. Plan: -Continue aspirin 81 mg and statin -Cleared for discharge from neurology standpoint when medically clear -Follow up within two weeks #History of diabetes History of hypertension #History of hyperlipidemia #Alzheimer's dementia #Major depressive disorder -Management per primary team Case was discussed with attending physician, Dr Marc Paredes MD PGY-1 Disclaimer: This note was dictated by speech recognition. Minor errors in hospital pharmacy director may be present due to voice recognition software. Attending Provider Attestation/Addendum I personally have seen and examined the patient at the bedside and agree with resident's findings, assessment and plan of care. Patient's condition is back to her baseline and is stable for discharge to [facility]. Will see her back in 2 weeks
--- NOTE | 2025-01-10 12:22 | PC.SS ---
Update: Stroke work up is pending. PT and speech evaluation planned. Neurology consulting on the case.
--- NOTE | 2025-01-10 13:26 | ECHO_ITS ---
Transthoracic Echo Report Ht (in): 60 Wt (lb): 135 Exam Location: [facility] Status: Inpatient Nutritional Services Director: ZULEMA Bobby^^^^ Indications: Procedure Performed: BP: / HR: Rhythm: Sinus Technical Quality: Fair MEASUREMENTS (Male / Female) Normal Values 2D ECHO LV Diastolic Diameter PLAX 3.7 cm 4.2 - 5.9 / 3.9 - 5.3 cm LV Systolic Diameter PLAX 2.6 cm IVS Diastolic Thickness 1.1 cm 0.6 - 1.0 / 0.6 - 0.9 cm LVPW Diastolic Thickness 0.9 cm 0.6 - 1.0 / 0.6 - 0.9 cm LV Relative Wall Thickness 0.5 LVOT Diameter 1.5 cm Aortic Root Diameter 3.0 cm LA Systolic Diameter LX 2.6 cm 3.0 - 4.0 / 2.7 - 3.8 cm LV Ejection Fraction MOD 4C 57.9 % LV Ejection Fraction 4C AL 58.8 % LA Volume Index 21.2 cm?/m? 16 - 28 cm?/m? DOPPLER AV Peak Velocity 140.0 cm/s AV Peak Gradient 7.8 mmHg AV Mean Gradient 5.0 mmHg AV Velocity Time Integral 33.4 cm LVOT Peak Velocity 78.3 cm/s LVOT Peak Gradient 2.5 mmHg LVOT Velocity Time Integral 21.4 cm AV Area Cont Eq vti 1.1 cm? AV Area Cont Eq pk 1.0 cm? MV Area PHT 3.2 cm? Mitral E Point Velocity 67.7 cm/s Mitral A Point Velocity 108.0 cm/s Mitral E to A Ratio 0.6 LV E' Lateral Velocity 7.0 cm/s Mitral E to LV E' Lateral Ratio 9.6 LV E' Septal Velocity 4.6 cm/s Mitral E to LV E' Septal Ratio 14.6 PV Peak Velocity 96.1 cm/s PV Peak Gradient 3.7 mmHg RVOT Peak Velocity 62.8 cm/s FINDINGS Left Ventricle Normal left ventricular size, wall thickness, systolic function with no obvious regional wall motion abnormalities. There is grade I diastolic dysfunction of the left ventricle (impaired relaxation pattern). The left ventricular ejection fraction is normal, estimated at 55-60%. Right Ventricle The right ventricle is normal in size and systolic function. The estimated right ventricular systolic pressure, 25 mmHg. Left Atrium The left atrium is normal by two-dimensional, color flow and Doppler imaging with no structural abnormalities, no thrombus formation present. Right Atrium The right atrium is normal by two-dimensional imaging, color flow and Doppler imaging with no structural abnormalities, no thrombus formation present. Atrial Septum The interatrial septum appears normal with no evidence of a shunt. Aorta The aorta is normal by two-dimensional, color flow and Doppler interrogation. Mitral Valve Mild mitral regurgitation. Mild mitral annular calcification. Aortic Valve Aortic valve sclerosis. Tricuspid Valve There is mild tricuspid valve regurgitation. Pulmonic Valve The pulmonic valve is not well visualized. There is no significant pulmonic valve regurgitation. Vessels The pulmonary artery appears normal. The inferior vena cava pulmonary and hepatic veins appear normal. Pericardium The pericardium is normal by two-dimensional imaging. There is no significant pericardial effusion. CONCLUSIONS Indication: CVA Patient refused bubble study. Conisder KASSANDRA if high clinical risk of suspicion. Normal LV size and function with an estimated EF 55-60%. Stage 1 diastolic dysfunction. Normal RV size and function with normal with RVSP 25 mmHg. Mild MR & mild MAC. Mild TR Mild AV sclerosis without stenosis. Lonnie Mccray (Electronically Signed) Final Date: 10 January 2025 19:25
--- NOTE | 2025-01-10 16:37 | PC.SS ---
Rounding Note: Plan is to d/c patient today.
--- NOTE | 2025-01-10 16:54 | PC.SS ---
Transport initiated with [facility]. Reference #[id number]. [facility] identified as preferred vendor. Awaiting authorizaiton.
--- NOTE | 2025-01-10 17:48 | PC.SS ---
MANIPULATIVE THERAPY SPECIALIST confirmed with [facility] that transport on will call pending [employer] authorization. [facility] provided Tele unit nurse's station number to provide update on transport time. Bedside nurse notified to provide nursing report to [facility] staff.
[2025-01-10] MEDS: Artificial Tears 225 DROP/15 ML BTL BOTH EYES (18:38)
--- NOTE | 2025-01-10 18:45 | PC.NURSE ---
Report given to Kayla REYES receiving nurse at [facility].
--- NOTE | 2025-01-10 19:21 | ESDS_ITS ---
<Statement entered by Nakul Ash MD - 01/17/25 09:25> I reviewed above note and agree with findings and plans. I have also personally examined the patient with medicine team and went over assessment and plan with medical team including consultant internship and resident physician. <Statement entered by Sushant Carter MD - 01/11/25 15:22> I discussed with and supervised the consultant internship physician involved in the care of this patient. Patient assessment and plan was discussed with entire medicine team, including my attending. I agree with the assessment and plan as documented by consultant internship doctor. Patient care was discussed with my attending physician Dr. Nilsa Carter, PGY-2 Planned Discharge Date 01/10/25 DS: Providers Provider Date of admission: 01/09/25 11:14 Primary care physician: Physician Priscila Primary/Family Admitting Provider: Nakul Ash MD Attending Provider on Admission: Nakul Ash MD Consults: 01/09/25 13:28 Consult to Neurology / Tele-Neurology Routine Comment: slurred speech, drooping of face Consulting Provider: Tom Tran 01/10/25 08:45 Referral - MATERNITY NURSE Warehouse Administrator Routine Comment: rodolfo Hook Attending Provider on DC: Nakul Ash MD Discharging Provider: Nakul Ash MD DS: Diagnosis Problem List Completed Was Problem List Reviewed/Reconciled?: Yes Hospital Course Hospital Course Hospital course: Reason for hospitalization: Metabolic encephalopathy, TIA Marla Resendez is 89 yr female with PMH of hypertension, type 2 diabetes mellitus, asthma, major depressive disorder, Alzheimer's dementia, hyperlipidemia and difficulty ambulating who presented to [facility] on 01/09/2025 from SNF due to facial drooping and difficulty speaking. Patient's mentation also acutely deteriorated from her baseline while in the ED. She was admitted for workup of stroke. Initial work up including CT head, CBC, CMP, urine toxicology, and UA were unremarkable. Teleneuro was consulted. Patient was not a candidate for thrombolytics but was given high dose aspirin. During hospitalization, her mentation improved and she returned to normal baseline. Alert and oriented 1-2. Patient was started on aspirin, atorvastatin, and Plavix. MRI head was negative. Patient is now in stable condition and ready for discharge. Recommendations were given as below. Discharge Recommendations: Stop taking simvastatin and start taking atorvastatin 80 mg daily Start taking aspirin 81 mg daily Start taking clopidogrel 75 mg daily Please follow up with neurologist in 1-2 weeks Follow up with PCP in 1-2 weeks Hospital Diagnoses: #Acute encephalopathy #TIA #Hx Type 2 diabetes mellitus #Hx Hypertension #Hx Hyperlipidemia The patient's management plan was discussed with my attending physician Dr. Ash. Anyi Lee MD, PGY-1 Time Spent with Patient Time attestation: Total time spent providing and/or coordinating discharge services: Time spent: Greater than 30 minutes Exam Vital Signs Temp Pulse Resp BP Pulse Ox O2 Del Method O2 Flow Rate 97.3 F 78 18 142/86 H 97 Nasal Cannula 2 01/10/25 16:00 01/10/25 16:00 01/10/25 16:00 01/10/25 16:00 01/10/25 16:01/10/25 16:00 01/10/25 16:00 Narrative Exam GENERAL: AAO1-2, slightly confused, elderly female NEURO: FAST FOOD CREW LEAD grossly intact, moves extremities x4, no new deficits HEENT: Moist mucosa. Eyes open, symmetrical, & clear CARDIO: No chest pain on palpation. Heart RRR, no obvious murmurs PULM: No noted coughing/dyspnea. Lungs CTA B/L, no R/W/R GI: Abdomen soft, nondistended, no pain on palpation. BSx4 URO/ANGLEDOZER OPERATOR:: No further abnormalities noted. SKIN/MSK/EXT: No wounds/rashes/edema/amputations, no pain on palpation. Pedal pulses present B/L Discharge Plan Plan Patient Disposition: Xfer Skilled Nsg Fac (SNF) Disposition Comment: Hospitalist to admit Dr Tran to consult Prescriptions/Referrals Prescriptions/Med Rec: New aspirin 81 mg capsule 81 mg PO QDAY Qty: 30 1RF atorvastatin 80 mg tablet 80 mg PO QDAY Qty: 30 1RF clopidogrel 75 mg tablet 75 mg PO QDAY Qty: 30 1RF Continued amlodipine 2.5 mg tablet 2.5 mg PO QDAY donepezil 5 mg tablet 5 mg PO HS escitalopram oxalate 20 mg tablet 20 mg PO QDAY metformin 1,000 mg tablet 1,000 mg PO QDAY montelukast 10 mg tablet 10 mg PO QDAY ipratropium-albuterol 0.5 mg-3 mg(2.5 mg base)/3 mL solution for nebulization 3 ml INHALATION Q4H PRN (Reason: shortness of breath) acetaminophen [8 Hour Pain Reliever] 650 mg tablet extended release 650 mg PO Q6HR PRN (Reason: pain) albuterol sulfate [Ventolin HFA] See Rx Instructions inhalation Q6HR PRN (Reason: shortness of breath) Rx Instructions: inhaled every 6 hours PRN; multivitamin [Daily Multi-Vitamin] Tablet 1 tab PO QDAY polyethylene glycol 3350 [ClearLax] 17 gram/dose powder 17 g PO QDAY lidocaine [Aspercreme (lidocaine)] 4 % adhesive patch,medicated 1 patch topical Q4H PRN (Reason: pain) bisacodyl [Dulcolax (bisacodyl)] 10 mg suppository 10 mg WA QDAY PRN (Reason: constipation) Enema 19-7 gram/118 mL enema 118 ml WA Q72H PRN (Reason: constipation) guaifenesin [Adult Tussin Chest Congestion] 100 mg/5 mL liquid 200 mg PO Q6H PRN (Reason: cough) pregabalin [Lyrica] 75 mg capsule 75 mg PO BID magnesium hydroxide [Dulcolax (magnesium hydroxide)] 400 mg/5 mL suspension 30 ml PO Q72H PRN (Reason: constipation) glycerin Drops 2 drp ophthalmic (eye) Q4HR PRN (Reason: dry eye(s)) Discontinued simvastatin 10 mg tablet 10 mg PO QDAY Referrals: No Primary/Family,Physician [Primary Care Provider] - Tom Tran MD [Physician] - Patient/Caregiver Discharge Instructions Other Discharge Activity Instructions:: Stop taking simvastatin and start taking atorvastatin 80 mg daily Start taking aspirin 81 mg daily Start taking clopidogrel 75 mg daily Please follow up with neurologist in 1-2 weeks Follow up with PCP in 1-2 weeks Education Materials: Symptoms of Stroke, What Is a TIA? Print Language: Wolof Stand Alone Forms: Bela Award Info., Patient Portal Info Letter Discharge Order Discharge Orders: Discharge (Routine); Ordered 01/10/25 Ordered By: Anyi Lee Quality Discharge Quality Measures VTE prophylaxis
[2025-01-10] MEDS: ATORVASTATIN CALCIUM 20 MG TABLET 80 MG PO (20:21)
[2025-01-10] MEDS: DONEPEZIL HCL 5 MG TABLET PO (20:22)
== END 2025-01-10 20:40 | disposition skilled nursing facility (03) | DRG 69 ==
LOC: SERX 09:53 → SERHOLD 11:39 → S2NX 19:13
PROVIDERS: Internal Medicine; Admitting Provider Internal Medicine; Emergency Provider Emergency Medicine; Visit Provider Internal Medicine
DX: G45.9 Transient cerebral ischemic attack, unspecified (principal); G93.41 Metabolic encephalopathy; F02.83 Dementia in other diseases classified elsewhere, unspecified severity, with mood disturbance; R29.810 Facial weakness; J45.909 Unspecified asthma, uncomplicated; R47.81 Slurred speech; I11.0 Hypertensive heart disease with heart failure; E78.5 Hyperlipidemia, unspecified; G30.9 Alzheimer's disease, unspecified; E11.9 Type 2 diabetes mellitus without complications; F32.9 Major depressive disorder, single episode, unspecified; I50.9 Heart failure, unspecified; Z79.82 Long term (current) use of aspirin; Z79.84 Long term (current) use of oral hypoglycemic drugs; Z99.3 Dependence on wheelchair; Z91.041 Radiographic dye allergy status; Z74.01 Bed confinement status
CPT/HCPCS: 36415; 70450; 70544; 71045; 80053; 80061; 80307; 80320; 81001; 82140; 82607; 82803; 83036; 83605; 83735; 83880; 84100; 84145; 84439; 84443; 84484; 85025; 85610; 86850; 86900; 86901; 87040; 87081; 92610; 93005; 93306; 96360; 99291; J2470; J3475; J7030; A9270; G0480

== ENCOUNTER 2025-03-01 07:30 | Emergency (ER) | payer MEDICARE, MEDICAID, SELFPAY ==
[2025-03-01] VITALS (23 sets, daily range): BP systolic 118–173; BP diastolic 36–82; PULSE 74–98; RESP 14–27; TEMP 36.1–36.5; O2SAT 88–98
--- NOTE | 2025-03-01 09:04 | XR_ITS ---
Examination: CT cervical spine without contrast 2-D sagittal reconstructions 2-D coronal reconstructions 3-D reconstructions. Exam date and time:March 01, 2025 0920 hours CTDI:vol (mGy) 8.18 DLP: (mGycm) 183 Technique: Multiple 2 mm axial sections of the cervical spine have been obtained. The coronal and sagittal reconstructions have been obtained. 3-D reconstructions have been obtained. Low dose protocols were performed. One or more of the following dose reduction techniques were used; automated exposure control, adjustment of the mA and/or KV according to patient size, use of iterative reconstruction technique. Findings: Axial sections demonstrate intact base of the skull. C1 exhibit satisfactory relationship to the odontoid. No acute cervical vertebral body fracture seen. Alignment posterior spinous processes satisfactory. Impression: No acute cervical fracture.
--- NOTE | 2025-03-01 09:04 | XR_ITS ---
Examination: CT brain head without contrast. 2-D sagittal coronal reconstructions Date and time of exam:March 01, 2025 0920 hours Comparison January 09, 2025 INDICATIONS: Patient fell today with injury to head, laceration to the scalp head pain CTDI: vol (mGy):49 DLP: (mGycm):1006 Technique: Multiple CT axial sections of the brain have been obtained, 5 mm slice thickness. Contrast has not been administered. 2-D sagittal, coronal reconstructions have been obtained Low dose protocols were performed. One or more of the following dose reduction techniques were used; automated exposure control, adjustment of the mA and/or KV according to patient size, use of iterative reconstruction technique. Findings: No significant ventricular enlargement. Intra-axial or extra-axial hemorrhage density is not seen. No mass effect or midline shift Basal cisterns are not remarkable. Fourth ventricle is midline. Cranial vault intact. 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
[2025-03-01 09:45] LABS: Basophils # (Auto) 0.1 Thou/mm3 (0.0-0.2); Basophils % (Auto) 1 % (0-2.5); Eosinophils # (Auto) 0.4 Thou/mm3 (0.0-0.5); Eosinophils % (Auto) 3 % (0-10); Hematocrit 37.3 % (36.0-46.0); Immature Granulocytes % (Auto) 0 % (0-0); Immature Granulocytes Auto 0.03 Thou/mm3 (0.00-0.00); Lymphocytes # (Auto) 1.9 Thou/mm3 (1.0-4.8); Lymphocytes % (Auto) 18 % (10-50); Mean Corpuscular HGB Conc 32.2 g/dl (31.0-37.0); Mean Corpuscular Hemoglobin 29.3 pg (25.0-35.0); Mean Corpuscular Volume 91 fL (80-100); Monocytes # (Auto) 0.6 Thou/mm3 (0.0-0.8); Monocytes % (Auto) 6 % (0-12); Neutrophils # (Auto) 7.5 Thou/mm3 (1.8-7.7); Neutrophils % (Auto) 71 % (37-80); Nucleated Red Blood Cell % 0 /100 WBC (0); Platelet Count 240 Thou/mm3 (140-440); RDW Standard Deviation 46.7 fL (36.4-46.3); White Blood Count 10.4 Thou/mm3 (3.6-11.0)
[2025-03-01 10:00] LABS: Prothrombin Time 11.3 Seconds (9.0-12.2)
[2025-03-01 10:15] LABS: Alanine Aminotransferase 9 U/L (10-49); Albumin, Serum 3.8 gm/dL (3.4-4.8); Albumin/Globulin Ratio 1.5 (1.2-2.2); Alkaline Phosphatase 96 U/L (46-116); Anion Gap 8 (7-16); Aspartate Amino Transferase 13 U/L (0-34); BUN/Creatinine Ratio 19 Ratio (12-20); Bilirubin,Total 0.5 mg/dL (0.3-1.2); Blood Urea Nitrogen 19 mg/dL (9-23); Calcium 8.6 mg/dL (8.3-10.6); Calcium (Corrected) 8.8 mg/dL (8.5-10.1); Carbon Dioxide 31.2 mMol/L (20.0-31.0); Chloride 105 mMol/L (98-107); Globulin 2.5 gm/dL (2.3-3.5); Glucose 124 mg/dL (74-106); Osmolality,Calculated 290 (275-295); Potassium 4.5 mMol/L (3.4-5.1); Sodium 144 mMol/L (136-145); Total Protein 6.3 gm/dL (5.7-8.2); eGFR 55 See Note
[2025-03-01] MEDS: LIDOCAINE HCL 1% 20 ML VIAL 30 ML INFL (10:36)
[2025-03-01] MEDS: SODIUM CL IRRIG SOLN 500 ML BTL IRRIG (10:37)
[2025-03-01] MEDS: RINGERS LACTATED 500 ML 500 ML 999 ML IV (10:47)
--- NOTE | 2025-03-01 12:41 | PD.EDHEAD ---
ED Head Injury RME/HPI General Chief complaint: Head Injury Stated complaint: FALL Time Seen by Provider: 03/01/25 09:04 Arrival date/time: 03/01/25 07:30 Limitations: no limitations RME / HPI RME / HPI Narrative: 89 year old female with history of Alzheimer's disease, dementia, hypertension, diabetes, hyperlipidemia, asthma presents to the ED [facility] from [facility] for evaluation after ground level fall today. Per medics report, the fall was witnessed by intermediate staff and denied the patient losing any consciousness. On their arrival noted patient to be bleeding from a laceration to the forehead that was wrapped with pressure dressing. No other injuries or complaints reported while in the ED. Related Data Home Medications ?Medication ?Instructions ?Recorded ?Confirmed acetaminophen 650 mg 650 mg PO Q6HR PRN pain 11/12/24 01/10/25 tablet,extended release (8 Hour Pain Reliever) albuterol sulfate See Rx Instructions inhalation 11/12/24 01/10/25 Q6HR PRN shortness of breath amlodipine 2.5 mg tablet 2.5 mg PO QDAY 11/12/24 01/10/25 donepezil 5 mg tablet 5 mg PO HS 11/12/24 01/10/25 escitalopram oxalate 20 mg tablet 20 mg PO QDAY 11/12/24 01/10/25 ipratropium 0.5 mg-albuterol 3 mg 3 ml inhalation Q4H PRN shortness 11/12/24 01/10/25 (2.5 mg base)/3 mL nebulization of breath soln lidocaine 4 % topical patch 1 patch topical Q4H PRN pain 11/12/24 01/10/25 (Aspercreme (lidocaine)) metformin 1,000 mg tablet 1,000 mg PO QDAY 11/12/24 01/10/25 montelukast 10 mg tablet 10 mg PO QDAY 11/12/24 01/10/25 multivitamin (Daily Multi-Vitamin 1 tab PO QDAY 11/12/24 01/10/25 tablet) polyethylene glycol 3350 17 17 g PO QDAY 11/12/24 01/10/25 gram/dose oral powder (ClearLax) bisacodyl 10 mg rectal suppository 10 mg MI QDAY PRN constipation 01/10/25 01/10/25 (Dulcolax (bisacodyl)) glycerin 2 drp ophthalmic (eye) Q4HR PRN 01/10/25 01/10/25 dry eye(s) guaifenesin 100 mg/5 mL oral 200 mg PO Q6H PRN cough 01/10/25 01/10/25 liquid (Adult Tussin Chest Congestion) magnesium hydroxide 400 mg/5 mL 30 ml PO Q72H PRN constipation 01/10/25 01/10/25 oral suspension (Dulcolax (magnesium hydroxide)) pregabalin 75 mg capsule (Lyrica) 75 mg PO BID 01/10/25 01/10/25 sodium phosphates 19 gram-7 118 ml MI Q72H PRN constipation 01/10/25 01/10/25 gram/118 mL enema (Enema) Previous Rx's ?Medication ?Instructions ?Recorded aspirin 81 mg capsule 81 mg PO QDAY #30 caps 01/10/25 atorvastatin 80 mg tablet 80 mg PO QDAY #30 tabs 01/10/25 clopidogrel 75 mg tablet 75 mg PO QDAY #30 tabs 01/10/25 Allergies Allergy/AdvReac Type Severity Reaction Status Date / Time iodine Allergy Verified 01/09/25 08:58 tositumomab iodine-131 Allergy Verified 01/09/25 08:58 Review of Systems Review of Systems Systems Reviewed: All systems reviewed, normal except as documented Past Medical History Past Medical History NEUROLOGIC: Positive Neurological Disorders, Dementia and Alzheimer's Disease CARDIAC: Positive Cardiac Disorders, Hypercholesterolemia, Congestive Heart Failure and Hypertension RESPIRATORY: Positive Asthma and Pneumonia ENDOCRINE: Positive Endocrine Disorders and Diabetes Mellitus Type 2 PSYCHO/SOCIAL: Positive Depression Social History SMOKING STATUS: Unknown if ever smoked ED Exam General Limitations: Present no limitations General appearance: Present alert Head Head exam: Present other (There is a rigth upper forehead laceration with active bleeding, measuring about 4cm ) Eye Eye exam: Present normal appearance, PERRL and EOMI ENT ENT exam: Present normal exam, normal oropharynx and mucous membranes moist Neck Neck exam: Present normal inspection, full ROM and trachea midline Chest Chest inspection: Present normal inspection and symmetric chest wall rise Respiratory Respiratory exam: Present normal lung sounds bilaterally Cardiovascular Cardiovascular exam: Present regular rate, normal rhythm and normal heart sounds Abdominal Exam Abdominal exam: Present soft and normal bowel sounds Extremities Exam Extremities exam: Present normal inspection and full ROM Back Exam Back exam: Present normal inspection and full ROM Neurological Exam Neurological exam: Present alert and CN II-XII intact Psychiatric Psychiatric exam: Present normal affect and normal mood Skin Skin exam: Present warm, dry, intact and normal color Course Quality Measures none Orders Category Date Time Status Irrigate Wound NOW Care 03/01/25 09:48 Active Set Up Suture Tray NOW Care 03/01/25 09:[address] cervical spine wo con Stat Exams 03/01/25 09:[address] head/brain wo con Stat Exams 03/01/25 09:04 Completed CBC Stat Lab 03/01/25 09:30 Completed CMP [Comprehensive Metabolic Panel] Stat Lab 03/01/25 09:30 Completed Prothrombin Time with INR Stat Lab 03/01/25 09:30 Completed Lidocaine 1% 20 ml [Xylocaine 1% 20 ML] Med 03/01/25 09:48 Discontinued 30 ml INFL X1 ONE Ringers Lactated 500 ml [Lactated Ringers] 500 ml Med 03/01/25 09:04 Discontinued IV 999 mls/hr Sodium Cl Irrig Soln [NS Irrig] Med 03/01/25 09:48 Discontinued 500 ml IRRIG X1 ONE Vital Signs Vital signs: Vital Signs Temperature 97.7 F 03/01/25 07:50 Pulse Rate 75 03/01/25 07:50 Respiratory Rate 21 H 03/01/25 07:50 Blood Pressure 173/76 H 03/01/25 07:50 Pulse Oximetry (%) 95 03/01/25 07:50 Oxygen Delivery Method Room Air 03/01/25 07:50 Pulse ox is 95% on room air which is adequate. Procedures -ED Procedure Comment See Adelaide Arzate [employer] procedure note for laceration repair Head Injury MDM Narrative MDM Narrative:: Jolie Hernandez am scribing for and in the presence of Dr. Suazo. Patient data External records reviewed:: [facility] records [facility] EMS form and [facility] records (I reviewed pmhx and medication list from [facility] ) Clinical information provided by:: patient Social determinants that could affect healthcare access:: housing (SNF resident ) Patient has the following chronic illnesses:: Alzheimer's disease, dementia, hypertension, diabetes, hyperlipidemia, asthma How is presenting disease/condition affected by chronic disease/condition?: exacerbated by Evaluation data The following diagnostics were reviewed and interpreted by me:: lab results and radiology exam(s) Lab and/or radiology exams considered but not ordered:: None Interpretation Summary: Ordering Physician: Tommie Suazo MD Date of Service: 03/01/25 Procedure(s): CT cervical spine wo con Accession Number(s): [id number] cc: Tommie Suazo MD; Rubio Cortez MD; Rigoberto Jacobsen MD~ Examination: CT cervical spine without contrast 2-D sagittal reconstructions 2-D coronal reconstructions 3-D reconstructions. Exam date and time:March 01, 2025 0920 hours CTDI:vol (mGy) 8.18 DLP: (mGycm) 183 Technique: Multiple 2 mm axial sections of the cervical spine have been obtained. The coronal and sagittal reconstructions have been obtained. 3-D reconstructions have been obtained. Low dose protocols were performed. One or more of the following dose reduction techniques were used; automated exposure control, adjustment of the mA and/or KV according to patient size, use of iterative reconstruction technique. Findings: Axial sections demonstrate intact base of the skull. C1 exhibit satisfactory relationship to the odontoid. No acute cervical vertebral body fracture seen. Alignment posterior spinous processes satisfactory. Impression: No acute cervical fracture. Dictated By: Rigoberto Jacosben MD Signed By: <Electronically signed by Rigoberto Jacobsen MD in [place]> 03/01/25 1116 Ordering Physician: Tommie Suazo MD Date of Service: 03/01/25 Procedure(s): CT head/brain wo con Accession Number(s): [id number] cc: Tommie Suazo MD; Rubio Cortez MD; Rigoberto Jacobsen MD~ Examination: CT brain head without contrast. 2-D sagittal coronal reconstructions Date and time of exam:March 01, 2025 0920 hours Comparison January 09, 2025 INDICATIONS: Patient fell today with injury to head, laceration to the scalp head pain CTDI: vol (mGy):49 DLP: (mGycm):1006 Technique: Multiple CT axial sections of the brain have been obtained, 5 mm slice thickness. Contrast has not been administered. 2-D sagittal, coronal reconstructions have been obtained Low dose protocols were performed. One or more of the following dose reduction techniques were used; automated exposure control, adjustment of the mA and/or KV according to patient size, use of iterative reconstruction technique. Findings: No significant ventricular enlargement. Intra-axial or extra-axial hemorrhage density is not seen. No mass effect or midline shift Basal cisterns are not remarkable. Fourth ventricle is midline. Cranial vault intact. 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 Dictated By: Rigoberto Jacobsen MD Signed By: <Electronically signed by Rigoberto Jacobsen MD in [place]> 03/01/25 1115 Medications / Prescriptions Medications or Prescriptions considered but not ordered:: None Medication administrations:: Medication Administration History Discontinued Medications Lactated Ringer's (Lactated Ringers) 500 mls @ 999 mls/hr IV .Q31M ONE Stop: 03/01/25 09:34 Last Infusion: 03/01/25 11:55 Dose: Infused Documented By: Admin: 03/01/25 10:47 Dose: 999 mls/hr Documented By: HOSSEIN Lidocaine HCl (Lidocaine Hcl 1% 20 Ml Vial) 30 ml INFL X1 ONE Stop: 03/01/25 09:49 Last Admin: 03/01/25 10:36 Dose: 30 ml Documented By: HOSSEIN Sodium Chloride (Sodium Cl Irrig Soln 500 Ml Btl) 500 ml IRRIG X1 ONE Stop: 03/01/25 09:49 Last Admin: 03/01/25 10:37 Dose: 500 ml Documented By: HOSSEIN See above Consultations Consultation(s) initiated? (list below): No Diagnosis Differential diagnosis head injury: concussion without loss of consciousness, closed head injury and subdural hematoma Most likely diagnosis given after review of the tests above:: Fall, CHI, facial laceration, forehead hematoma Admission Indicated Admission indicated?: not indicated Admission Request Was there a request for admission?: No Disposition Plan Disposition Plan: Discharge Discharge Attestation Discharge Attestation: The patient and all family members were given an opportunity to ask questions and understood the discharge instructions. Discharge instructions specifically effects, indications for sooner follow up or return to the emergency department, and the expected course of current diagnosis. Patient condition: Stable Discharge Plan Plan Patient Disposition: Xfer Skilled Nsg Fac (SNF) Prescriptions/Referrals Prescriptions/Med Rec: No Action amlodipine 2.5 mg tablet 2.5 mg PO QDAY donepezil 5 mg tablet 5 mg PO HS escitalopram oxalate 20 mg tablet 20 mg PO QDAY metformin 1,000 mg tablet 1,000 mg PO QDAY montelukast 10 mg tablet 10 mg PO QDAY ipratropium-albuterol 0.5 mg-3 mg(2.5 mg base)/3 mL solution for nebulization 3 ml INHALATION Q4H PRN (Reason: shortness of breath) acetaminophen [8 Hour Pain Reliever] 650 mg tablet extended release 650 mg PO Q6HR PRN (Reason: pain) albuterol sulfate [Ventolin HFA] See Rx Instructions inhalation Q6HR PRN (Reason: shortness of breath) Rx Instructions: inhaled every 6 hours PRN; multivitamin [Daily Multi-Vitamin] Tablet 1 tab PO QDAY polyethylene glycol 3350 [ClearLax] 17 gram/dose powder 17 g PO QDAY lidocaine [Aspercreme (lidocaine)] 4 % adhesive patch,medicated 1 patch topical Q4H PRN (Reason: pain) bisacodyl [Dulcolax (bisacodyl)] 10 mg suppository 10 mg MI QDAY PRN (Reason: constipation) Enema 19-7 gram/118 mL enema 118 ml MI Q72H PRN (Reason: constipation) guaifenesin [Adult Tussin Chest Congestion] 100 mg/5 mL liquid 200 mg PO Q6H PRN (Reason: cough) pregabalin [Lyrica] 75 mg capsule 75 mg PO BID magnesium hydroxide [Dulcolax (magnesium hydroxide)] 400 mg/5 mL suspension 30 ml PO Q72H PRN (Reason: constipation) glycerin Drops 2 drp ophthalmic (eye) Q4HR PRN (Reason: dry eye(s)) aspirin 81 mg capsule 81 mg PO QDAY Qty: 30 1RF atorvastatin 80 mg tablet 80 mg PO QDAY Qty: 30 1RF clopidogrel 75 mg tablet 75 mg PO QDAY Qty: 30 1RF Referrals: Rubio Cortez MD [Primary Care Provider] - In 1 week Problem List Clinical Impression: Fall, CHI (closed head injury), Facial laceration, Traumatic hematoma of forehead Patient/Caregiver Discharge Instructions Education Materials: ED Head Injury (Adult), ED Laceration, Face: Stitches or Tape Additional Instructions: Follow up with your doctor within 2 days for wound check and in 7 days for suture removal. Take Tylenol as needed for pain. Print Language: Djiboutian Stand Alone Forms: [employer] Award Info., Patient Portal Info Letter
--- NOTE | 2025-03-01 12:55 | PD.EDADDENDU ---
ED Procedures Laceration Laceration 1: Site: face (forehead ) Side (If applicable): right Size (cm): 4 Description: linear Depth: simple, single layer Local Anesthetic: lidocaine 1% Amount of anesthesia used (mL): 5 Pre-repair: wound explored and irrigated extensively Skin layer closed with: other (ethilon ) Size (cm): 4-0 Number of sutures: 5 Technique: simple, interrupted
--- NOTE | 2025-03-01 13:31 | PC.CC ---
LILLIAN Vizcaino was consulted about arranging transportation for patient back to [facility]. DELMYW arranged transportation with [facility] [id number]. Informed [facility] that [facility] is who normally use for transports.
== END 2025-03-01 17:10 | disposition skilled nursing facility (03) ==
PROVIDERS: Emergency Provider Family Medicine; PCP Hospitalist
DX: S01.81XA Laceration without foreign body of other part of head, initial encounter (principal); S09.90XA Unspecified injury of head, initial encounter; W18.30XA Fall on same level, unspecified, initial encounter; Y92.129 Unspecified place in nursing home as the place of occurrence of the external cause
CPT/HCPCS: 12013; 36415; 70450; 72125; 80053; 85025; 85610; 96360; 99284; A4217; J3490; J7120

== ENCOUNTER 2025-03-11 18:00 | Inpatient (IN) | payer MEDICARE, MEDICAID, SELFPAY ==
[2025-03-11] VITALS (7 sets, daily range): BP systolic 104–129; BP diastolic 67–70; PULSE 70–78; RESP 16–19; TEMP 36.3–36.6; O2SAT 91–98; BMI 26.4
--- NOTE | 2025-03-11 18:32 | EDNOTE_ITS ---
Altered Mental Status RME/HPI General Chief Complaint: Altered Mental Status Stated Complaint: ALTERED MENTAL STATUS Time Seen by Provider: 03/11/25 18:38 Arrival date/time: 03/11/25 18:00 RME / HPI RME / HPI narrative: Dr. Bhatti?s Main ED Evaluation: 89yo female with a history of HTN, HLD, DMII, asthma, major depressive disorder, Alzheimer's dementia [facility] from [facility] presents to the ED for a chief complaint of AMS. Per EMS, facility staff endorsed the patient is normally GCS 15 and AAOx4, but reported the patient has been altered for the last 2 hours. Patient is sleepy, but arousable. She is altered and is unable to provide any history. Full ROS is unobtainable due to the patient's AMS. Of note, patient is on Plavix. Related Data Home Medications ?Medication ?Instructions ?Recorded ?Confirmed acetaminophen 650 mg 650 mg PO Q6HR PRN pain 12/0503/12/25 tablet,extended release (8 Hour Pain Reliever) albuterol sulfate See Rx Instructions inhalati on 11/12/24 03/12/25 Q6HR PRN shortness of breath amlodipine 2.5 mg tablet 2.5 mg PO QDAY 11/12/2412/05 donepezil 5 mg tablet 5 mg PO HS 11/12/24 03/12/25 escitalopram oxalate 20 mg tablet 20 mg PO QDAY 03/12/25 ipratropium 0.5 mg-albuterol 3 mg 3 ml inhalation Q4H PRN shortness 11/12/24 03/12/25 (2.5 mg base)/3 mL nebulization of breath soln lidocaine 4 % topical patch 1 patch topical Q4H PRN pa in 11/12/24 03/12/25 (Aspercreme (lidocaine)) metformin 1,000 mg tablet 1,000 mg PO QDAY 11/12/24 montelukast 10 mg tablet 10 mg PO QDAY 11/12/2403/12 multivitamin (Daily Multi-Vitamin 1 tab PO QDAY 03/12/25 tablet) polyethylene glycol 3350 17 17 g PO QDAY 11/12/2412/05 gram/dose oral powder (ClearLax) bisacodyl 10 mg rectal suppository 10 mg NH QDAY PRN c onstipation 01/10/25 03/12/25 (Dulcolax (bisacodyl)) glycerin 2 drp ophthalmic (eye) Q4HR PRN 01/10/25 03/12/25 dry eye(s) guaifenesin 100 mg/5 mL oral 200 mg PO Q6H PRN cough 0 01/10/25 03/12/25 liquid (Adult Tussin Chest Congestion) magnesium hydroxide 400 mg/5 mL 30 ml PO Q72H PRN cons tipation 01/10/25 03/12/25 oral suspension (Dulcolax (magnesium hydroxide)) pregabalin 75 mg capsule (Lyrica) 75 mg PO BID 5 03/12/25 sodium phosphates 19 gram-7 118 ml NH Q72H PRN constip ation 01/10/25 03/12/25 gram/118 mL enema (Enema) acetaminophen 325 mg tablet 650 mg PO Q6H PRN pain 12/0503/12/25 artificial tears solution eye drops 2 drp ophthalmic ( eye) Q4H PRN eye 03/12/25 03/12/25 irritation atorvastatin 80 mg tablet 80 mg PO HS 03/12/25 5 furosemide 20 mg tablet (Lasix) 20 mg PO BID 03/12/25 03/12/25 pregabalin 100 mg capsule (Lyrica) 100 mg PO Q8H 03/1203/12/25 Previous Rx's ?Medication ?Instructions ?Recorded aspirin 81 mg capsule 81 mg PO QDAY #30 caps 01/10 clopidogrel 75 mg tablet 75 mg PO QDAY #30 tabs 01/10 Allergies Allergy/AdvReac Type Severity Reaction Status Date / Time iodine Allergy Verified 01/09/25 08:58 tositumomab iodine-131 Allergy Verified 01/09/25 08:58 Review of Systems Review of Systems Systems Reviewed: All systems reviewed, normal except as documented Past Medical History Past Medical History NEUROLOGIC: Positive Neurological Disorders, Dementia and Alzheimer's Disease CARDIAC: Positive Cardiac Disorders, Hypercholesterolemia, Congestive Heart Failure and Hypertension RESPIRATORY: Positive Asthma and Pneumonia; Negative Chronic Obstructive Pulmonary Disease (COPD) GASTROINTESTINAL: Negative Gastrointestinal Disorders GENITOURINARY: Negative Genitourinary Disorders or Renal Disease MUSCULOSKELETAL: Negative Musculoskeletal Disorders ENDOCRINE: Positive Endocrine Disorders and Diabetes Mellitus Type 2; Negative Diabetes Mellitus Type 1 PSYCHO/SOCIAL: Positive Depression Social History SMOKING STATUS: Unknown if ever smoked ED Exam Narrative Physical exam: GENERAL APPEARANCE: somnolent, well-developed, well-nourished, no acute distress HEENT: Normocephalic, atraumatic; pupils equal, round, reactive to light; EOMI; mucous membranes pink, moist; oropharynx clear NECK: Supple LUNGS: CTABL; no wheezes, no rales, no rhonchi HEART: Regular rate, regular rhythm; normal S1, S2; no murmurs ABDOMEN: non distended; normal BS; soft, no tenderness, no guarding, no rebound; no masses, no organomegaly, no hernia BACK: no CVA tenderness EXTREMITIES: atraumatic; no edema NEUROLOGIC: somnolent, arousable to voice, has gargled speech, does not follow commands PSYCHIATRIC: appropriate mood and affect SKIN: warm, dry, normal color; no rashes Course Quality Measures none Orders Category Date Time Status Bedside Blood Glucose NOW Care 03/11/25 18:32 Completed Chucking Lathe Operator NOW Care 03/11/25 18:45 Active Chucking Lathe Operator Q4H START 00 Care 03/11/25 18:32 Active Continuous Pulse Oximetry NOW Care 03/11/25 18:45 Completed EKG (ED ONLY) *Do not use* NOW Care 03/11/25 18:45 Completed Insert IV NOW Care 03/11/25 18:45 Active NIH Stroke Scale now Care 03/11/25 20:58 Completed NPO NOW Care 03/11/25 20:58 Active Nurse Swallow Screen x1 Care 03/11/25 20:58 Completed Urinary Catheter QSHIFT Care 03/11/25 18:45 Active Consult to Neurology / Tele-Neurology Routine Cons 03/11/25 20:[address] angio stroke protocol Stat Exams 03/11/25 20:[address] head/brain wo con Stat Exams 03/11/25 18:36 Completed EKG (ED Only) Stat Exams 03/11/25 18:45 Draft XR chest 1V portable Stat Exams 03/11/25 18:46 Completed ABG [Arterial Blood Gas] Stat Lab 03/11/25 21:51 Completed Alcohol, Blood Medical Stat Lab 03/11/25 19:27 Completed Ammonia Stat Lab 03/11/25 19:27 Completed CBC Stat Lab 03/11/25 19:27 Completed Comprehensive Metabolic Panel Stat Lab 03/11/25 19:27 Completed Drug Screen,Urine Stat Lab 03/11/25 19:35 Completed Magnesium Stat Lab 03/11/25 19:27 Completed Partial Thromboplastin Time Stat Lab 03/11/25 19:27 Completed Prothrombin Time with INR Stat Lab 03/11/25 19:27 Completed Troponin I Stat Lab 03/11/25 19:27 Completed Urinalysis Stat Lab 03/11/25 19:35 Completed DiphenhydrAMINE INJ [Benadryl Inj] Med 03/11/25 21:08 Discontinued 25 mg IVP X1 ONE Famotidine Inj [Pepcid Inj] Med 03/11/25 21:08 Discontinued 20 mg IVP X1 ONE Magnesium Sulfate 1 gm Ivpb [Magnesium Sulfate Ivpb] Med 03/12/25 00:00 Discontinued 1 gm in 100 ml IV X1 MethylPREDNISolone.* [SoluMEDROL Inj] Med 03/11/25 21:08 Discontinued 125 mg IVP X1 ONE Vital Signs Vital signs: Vital Signs Pulse Rate 78 03/11/25 18:06 Respiratory Rate 16 03/11/25 18:06 Blood Pressure 104/70 03/11/25 18:06 Pulse Oximetry (%) 97 03/11/25 18:06 Oxygen Delivery Method Room Air 03/11/25 18:06 Altered Mental Status MDM Narrative MDM Narrative:: Scribe Attestation: 03/11/25 - Franca Hernandez am scribing for and in the presence of Dr. Bhatti. 2057: Patient has no bleed on CT head without contrast. No evidence of UTI, sepsis, dehydration or pneumonia at this time. No signs of hepatic encephalopathy. Patient's slurred speech remains. Stroke alert initiated for advanced testing. 2131: Discussed case with Dr. Mckeon from teleneurology regarding consultation. Discussed patients ED course, exam findings, labs, and radiology results. States the patient is unable to participate in the physical examination, therefore, he is unable to evaluate her. States the patient does not have any signs of stroke at this time and does not think the patient is a tPA candidate. Does not recommend the patient getting a CTA head and neck due to the patient being on selective treatment. Of note, I feel the patient should have CTA head and neck performed to r/o LVO. 2137: Patient is now arousable to pain only. 7: Discussed case with the resident physician, attending Dr. Bryant from [facility] service regarding admission. Discussed patients ED course, exam findings, labs, and radiology results. The Hospitalist agrees to accept the patient for admission. Patient data External records reviewed:: [facility] previous records (Per chart review, patient was seen here on 03/01/25 for closed head injury.) Clinical information provided by:: patient Social determinants that could affect healthcare access:: none Patient has the following chronic illnesses:: HTN, HLD, DMII, asthma, major depressive disorder, Alzheimer's dementia How is presenting disease/condition affected by chronic disease/condition?: uneffected by Evaluation data The following diagnostics were reviewed and interpreted by me:: lab results, radiology exam(s) and EKG tracing(s) Lab and/or radiology exams considered but not ordered:: none Interpretation Summary: CBC normal, PT/INR/PTT normal, Ammonia normal, Magnesium 1.5, UA is unremarkable, UDS is negative, ABG shows normal pH, pCO2 49, HCO3 29, according to my interpretation. EKG done at 1902, NSR, rate of 74, normal axis, no ectopy, Q waves in V1 and V2, no STEMI, according to my interpretation. [facility] Report Signed Patient: PRESTON WARD. Record#: [id number] Birthdate: 1935 Age/Sex: 89 / F Location: [facility] Attending Dr: Ordering Physician: Ihsan Bhatti MD Date of Service: 03/11/25 Procedure(s): XR chest 1V portable Accession Number(s): [id number] cc: Rigoberto Jacobsen MD; NO PRIMARY/FAMILY,PHYSICIAN; Ihsan Bhatti MD~ Examination: AP chest single view Technique one AP portable semiupright chest single view Date and time: March 11, 2025 1919 hours INDICATIONS: Altered mental status today. FINDINGS: The film is rotated severely RPO Normal heart size No aspiration pneumonia Mild vascular congestion. IMPRESSION: No aspiration pneumonia Dictated By: Rigoberto Jacobsen MD Signed By: <Electronically signed by Rigoberto Jacobsen MD in OV> 03/11/251955 [facility] Signed Patient: PRESTON WARD [employer] Record#: [id number] Birthdate: 1935 Age/Sex: 89 / F Location: [facility] Attending Dr: Ordering Physician: Ihsan Bhatti MD Date of Service: 03/11/25 Procedure(s): CT head/brain wo con Accession Number(s): [id number] cc: Rigoberto Jacobsen MD; NO PRIMARY/FAMILY,PHYSICIAN; Ihsan Bhatti MD~ Examination: CT brain head without contrast. 2-D sagittal coronal reconstructions Date and time of exam:March 11, 2025, 1853 hours INDICATIONS: Altered mental status today COMPARISON: March 01, 2025 CTDI: vol (mGy):48 DLP: (mGycm):1002 Technique: Multiple CT axial sections of the brain have been obtained, 5 mm slice thickness. Contrast has not been administered. 2-D sagittal, coronal reconstructions have been obtained Low dose protocols were performed. One or more of the following dose reduction techniques were used; automated exposure control, adjustment of the mA and/or KV according to patient size, use of iterative reconstruction technique. Findings: No significant ventricular enlargement. Intra-axial or extra-axial hemorrhage density is not seen. No mass effect or midline shift Basal cisterns are not remarkable. Fourth ventricle is midline. Cranial vault intact. Unchanged 8 mm calcified mass adjacent to the right cerebellar tentorium Impression: Negative for acute hemorrhage, mass effect or midline shift As clinically warranted, brain MRI follow-up, repeat, would best assess for acute ischemic change Dictated By: Rigoberto Jacobsen MD Signed By: <Electronically signed by Rigoberto Jacobsen MD in OV> 03/11/251946 [facility] Signed Patient: PRESTON WARD. Record#: [id number] Birthdate: 1935 Age/Sex: 89 / F Location: [facility] Attending Dr: Ordering Physician: Ihsan Bhatti MD Date of Service: 03/11/25 Procedure(s): CT angio stroke protocol Accession Number(s): [id number] cc: Rigoberto Jacobsen MD; NO PRIMARY/FAMILY,PHYSICIAN; Ihsan Bhatti MD~ Examination: CTA carotids with intravenous contrast CTA brain, head with intravenous contrast. 2-D sagittal, coronal reconstructions. 3-D reconstructions. Exam date and time: March 11, 2025 1012 hours INDICATIONS:: Stroke alert, onset focal neurologic deficit beginning 6 hours ago CTDI: vol (mGy) 11.2 DLP: (mGycm) 449 Technique: Multiple CTA axial brain, head carotid images post intravenous contrast injection 100 cc, Isovue-370. 2-D sagittal, coronal reconstructions. 3-D reconstructions, 3-D post processing including vascular maximum intensity projection images. Low dose protocols were performed. One or more of the following dose reduction techniques were used; automated exposure control, adjustment of the mA and/or KV according to patient size, use of iterative reconstruction technique. Findings: Small area of parenchymal disease at the left apex image 241 Bilateral thyroid nodules, the largest in the right lobe 5 mm No significant common carotid carotid bifurcation or internal carotid artery stenoses Dominant left vertebral artery with no significant vertebral artery stenoses Intracranial vertebral arteries basilar artery posterior cerebral branches fill with no large vessel occlusions Petrous juxtasellar supraclinoid portions internal carotid arteries fill as well as M1 segments middle cerebral arteries and middle cerebral artery trifurcation vessels and anterior cerebral arteries IMPRESSION: No significant neck arterial stenoses No cerebral large vessel arterial occlusions or thrombus Dictated By: Rigoberto Jacobsen MD Signed By: <Electronically signed by Rigoberto Jacobsen MD in OV> 03/11/25 2240 Medications / Prescriptions Medications or Prescriptions considered but not ordered:: none Medication administrations:: Medication Administration History Acetaminophen (Acetaminophen Supp 650 Mg Supp) 650 mg NH Q6HR PRN PRN Reason: Fever > 100 Stop: 04/11/25 00:21 Acetaminophen (Acetaminophen Supp 650 Mg Supp) 1,000 mg NH Q6H PRN PRN Reason: PAIN SCALE 1-3 (mild Stop: 04/11/25 00:21 Aspirin (Aspirin Ec 81 Mg Tabec) 81 mg PO QDAY DANIEL Stop: 04/11/25 08:59 Atorvastatin Calcium (Atorvastatin Calcium 20 Mg Tablet) 80 mg PO HS [facility] Stop: 04/11/25 20:59 Dextrose (Dextrose 50%-Water Inj 50 Ml Syringe) 25 ml IV Q15MIN PRN PRN Reason: BG 50-70 responsive npo pt Stop: 04/11/25 00:27 Dextrose (Dextrose 50%-Water Inj 50 Ml Syringe) 50 ml IV Q15MIN PRN PRN Reason: BG <50 OR BG <70 & pt unresponsive Stop: 04/11/25 00:27 Docusate Sodium (Docusate Sod 100 Mg Capsule) 100 mg PO QDAY DANIEL; Protocol Stop: 04/11/25 08:59 Glucagon (Glucagon Inj 1 Mg Vial) 1 mg IM Q15MIN PRN PRN Reason: BG <70, and no IV access Sodium Chloride (Ns) 1,000 mls @ 60 mls/hr IV .[id number] [facility] Stop: 03/12/25 17:07 Last Admin: 03/12/25 00:46 Dose: 60 mls/hr Documented By: EFREM Insulin Human Lispro (Insulin Lispro (Admelog) 1 Unit/0.01 Ml Unit) 0 unit SC Q6HR DANIEL; Protocol Stop: 04/11/25 05:59 Labetalol HCl (Labetalol Inj 5 Mg/Ml Vial 20 Ml) 10 mg IVP Q6H PRN PRN Reason: SBP>220 Stop: 04/11/25 00:48 Ondansetron HCl (Ondansetron Inj 2 Mg/Ml Inj 2 Ml) 4 mg IVP Q6H PRN; Protocol PRN Reason: NAUSEA OR VOMITING Stop: 04/11/25 00:21 Pantoprazole Sodium (Pantoprazole Inj 40 Mg Vial) 40 mg IVP QDAY DANIEL Stop: 04/11/25 08:59 Sennosides (Senna Tablet) 1 tab PO QDAY DANIEL; Protocol Stop: 04/11/25 08:59 Discontinued Medications Diphenhydramine HCl (Diphenhydramine Inj 50 Mg/Ml Vial) 25 mg IVP X1 ONE Stop: 03/11/25 21:09 Last Admin: 03/11/25 21:25 Dose: 25 mg Documented By: EFREM Famotidine (Famotidine Inj 10 Mg/Ml Vial 2 Ml) 20 mg IVP X1 ONE Stop: 03/11/25 21:09 Last Admin: 03/11/25 21:24 Dose: 20 mg Documented By: EFREM Magnesium Sulfate/Dextrose (Magnesium Sulfate Ivpb) 1 gm in 100 mls @ 100 mls/hr IV X1 ONE Stop: 03/12/25 00:59 Last Infusion: 03/12/25 01:26 Dose: Infused Documented By: Admin: 03/12/25 00:21 Dose: 100 mls/hr Documented By: EFREM Insulin Human Lispro (Insulin Lispro (Admelog) 1 Unit/0.01 Ml Unit) 0 unit SC AC [facility]; Protocol Stop: 04/11/25 07:29 Methylprednisolone Sodium Succinate (Methylprednisolone Sod Succ 62.5 Mg/Ml 2ml Vial) 125 mg IVP X1 ONE Stop: 03/11/25 21:09 Last Admin: 03/11/25 21:25 Dose: 125 mg Documented By: EFREM See above Consultations Consultation(s) initiated? (list below): Yes Diagnosis Differential diagnosis altered mental status: other (CVA, hemorrhagic CVA, UTI, encephalopathy) Most likely diagnosis given after review of the tests above:: AMS Admission Indicated Admission indicated?: indicated Admission Request Was there a request for admission?: Yes Admission Attestation Admission request attestation: Discussed case with [] from Hospitalist service regarding admission. Discussed patients ED course, exam findings, labs, and radiology results. The Hospitalist [agrees,declines] to accept the patient for admission. Disposition Plan Disposition Plan: Admit Critical Care Time Critical Care Time Critical Care Time: Yes Total Critical Care Time (min.): 45 Attestation: The high probability of sudden, clinically significant deterioration in the patient?s condition required the highest level of my preparedness to intervene urgently. The services I provided to this patient were to treat and/or prevent clinically significant deterioration. Services included the following: chart data review, reviewing nursing notes and/or old charts, documentation time, netsuite consultant collaboration regarding findings and treatment options, medication orders and management, direct patient care, vital sign assessments and ordering, interpreting and reviewing diagnostic studies and lab tests. Aggregate critical care time includes only time during which I was engaged in work directly related to the patient?s care, as described above, whether at bedside or elsewhere in the Emergency Department. It did not include time spent performing other reported procedures or the services of residents, students, nurses or physician assistants. Discharge Plan Plan Patient Disposition: Admit Acute Care w/in Hospital Discharge Disposition comment: TELE RM 262 Patient condition on transfer: Stable Problem List Clinical Impression: Altered mental status
--- NOTE | 2025-03-11 18:36 | XR_ITS ---
Examination: CT brain head without contrast. 2-D sagittal coronal reconstructions Date and time of exam:March 11, 2025, 1853 hours INDICATIONS: Altered mental status today COMPARISON: March 01, 2025 CTDI: vol (mGy):48 DLP: (mGycm):1002 Technique: Multiple CT axial sections of the brain have been obtained, 5 mm slice thickness. Contrast has not been administered. 2-D sagittal, coronal reconstructions have been obtained Low dose protocols were performed. One or more of the following dose reduction techniques were used; automated exposure control, adjustment of the mA and/or KV according to patient size, use of iterative reconstruction technique. Findings: No significant ventricular enlargement. Intra-axial or extra-axial hemorrhage density is not seen. No mass effect or midline shift Basal cisterns are not remarkable. Fourth ventricle is midline. Cranial vault intact. Unchanged 8 mm calcified mass adjacent to the right cerebellar tentorium Impression: Negative for acute hemorrhage, mass effect or midline shift As clinically warranted, brain MRI follow-up, repeat, would best assess for acute ischemic change
--- NOTE | 2025-03-11 18:45 | EKG_ITS ---
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
--- NOTE | 2025-03-11 18:46 | XR_ITS ---
Examination: AP chest single view Technique one AP portable semiupright chest single view Date and time: March 11, 2025 1919 hours INDICATIONS: Altered mental status today. FINDINGS: The film is rotated severely RPO Normal heart size No aspiration pneumonia Mild vascular congestion. IMPRESSION: No aspiration pneumonia
[2025-03-11 19:45] LABS: Basophils # (Auto) 0.1 Thou/mm3 (0.0-0.2); Basophils % (Auto) 1 % (0-2.5); Eosinophils # (Auto) 0.3 Thou/mm3 (0.0-0.5); Eosinophils % (Auto) 3 % (0-10); Hematocrit 32.2 % (36.0-46.0); Hemoglobin 10.4 g/dL (12.0-16.0); Immature Granulocytes % (Auto) 0 % (0-0); Immature Granulocytes Auto 0.02 Thou/mm3 (0.00-0.00); Lymphocytes # (Auto) 2.2 Thou/mm3 (1.0-4.8); Lymphocytes % (Auto) 22 % (10-50); Mean Corpuscular HGB Conc 32.3 g/dl (31.0-37.0); Mean Corpuscular Hemoglobin 29.4 pg (25.0-35.0); Mean Corpuscular Volume 91 fL (80-100); Monocytes # (Auto) 0.8 Thou/mm3 (0.0-0.8); Monocytes % (Auto) 8 % (0-12); Neutrophils # (Auto) 6.7 Thou/mm3 (1.8-7.7); Neutrophils % (Auto) 66 % (37-80); Nucleated Red Blood Cell % 0 /100 WBC (0); Platelet Count 262 Thou/mm3 (140-440); RDW Standard Deviation 45.2 fL (36.4-46.3); Red Blood Count 3.54 Miln/mm3 (4.00-5.20); White Blood Count 10.2 Thou/mm3 (3.6-11.0)
[2025-03-11 19:53] LABS: Partial Thromboplastin Time 25.6 Seconds (22.0-36.0); Prothrombin Time 11.3 Seconds (9.0-12.2)
[2025-03-11 20:06] LABS: Collection Type, Urine Catheter
[2025-03-11 20:06] LABS: Ammonia 17 uMol/L (11-32)
[2025-03-11 20:14] LABS: Alanine Aminotransferase < 7 U/L (10-49); Albumin, Serum 3.6 gm/dL (3.4-4.8); Albumin/Globulin Ratio 1.7 (1.2-2.2); Alcohol, Blood Medical < 3.0 mg/dL (0-10.0); Alkaline Phosphatase 84 U/L (46-116); Anion Gap 10 (7-16); Aspartate Amino Transferase 12 U/L (0-34); BUN/Creatinine Ratio 21 Ratio (12-20); Bilirubin,Total 0.3 mg/dL (0.3-1.2); Blood Urea Nitrogen 25 mg/dL (9-23); Calcium 8.1 mg/dL (8.3-10.6); Calcium (Corrected) 8.4 mg/dL (8.5-10.1); Carbon Dioxide 27.9 mMol/L (20.0-31.0); Chloride 106 mMol/L (98-107); Creatinine (Component) 1.2 mg/dL (0.6-1.3); Estimated Creatinine Clearance 30.5 mL/min (>60); Globulin 2.1 gm/dL (2.3-3.5); Glucose 115 mg/dL (74-106); Magnesium 1.5 mg/dL (1.6-2.6); Osmolality,Calculated 292 (275-295); Potassium 4.3 mMol/L (3.4-5.1); Sodium 144 mMol/L (136-145); Total Protein 5.7 gm/dL (5.7-8.2); Troponin I < 0.020 ng/mL (0.0-0.045); eGFR 44 See Note
[2025-03-11 20:26] LABS: Bilirubin,Urine Negative (Negative); Blood,Urine Negative (Negative); Clarity,Urine Clear (Clear/Hazy); Color,Urine Yellow (Lt Yel-Yel); Glucose, Urine Negative (Negative); Hyaline Casts,Urine < 1 /hpf (0-1); Ketones,Urine Negative (Negative); Leukocyte Esterase,Urine Negative (Negative); Nitrite,Urine Negative (Negative); PH,Urine 5.5 (5.0-7.0); Protein,Urine Negative (Neg - Trace); RBC,Urine 3 /hpf (0-3); Specific Gravity,Urine 1.018 (1.001-1.035); Squamous Epithelial Cell,Urine < 1 /hpf (0-5); Urobilinogen,Urine Negative mg/dL (0.0-1.0); WBC,Urine 2 /hpf (0-5)
--- NOTE | 2025-03-11 20:58 | XR_ITS ---
Examination: CTA carotids with intravenous contrast CTA brain, head with intravenous contrast. 2-D sagittal, coronal reconstructions. 3-D reconstructions. Exam date and time: March 11, 2025 1012 hours INDICATIONS:: Stroke alert, onset focal neurologic deficit beginning 6 hours ago CTDI: vol (mGy) 11.2 DLP: (mGycm) 449 Technique: Multiple CTA axial brain, head carotid images post intravenous contrast injection 100 cc, Isovue-370. 2-D sagittal, coronal reconstructions. 3-D reconstructions, 3-D post processing including vascular maximum intensity projection images. Low dose protocols were performed. One or more of the following dose reduction techniques were used; automated exposure control, adjustment of the mA and/or KV according to patient size, use of iterative reconstruction technique. Findings: Small area of parenchymal disease at the left apex image 241 Bilateral thyroid nodules, the largest in the right lobe 5 mm No significant common carotid carotid bifurcation or internal carotid artery stenoses Dominant left vertebral artery with no significant vertebral artery stenoses Intracranial vertebral arteries basilar artery posterior cerebral branches fill with no large vessel occlusions Petrous juxtasellar supraclinoid portions internal carotid arteries fill as well as M1 segments middle cerebral arteries and middle cerebral artery trifurcation vessels and anterior cerebral arteries IMPRESSION: No significant neck arterial stenoses No cerebral large vessel arterial occlusions or thrombus
--- NOTE | 2025-03-11 21:00 | PC.NURSE ---
stroke consult Case # [id number]
--- NOTE | 2025-03-11 21:19 | PC.NURSE ---
PATIENT UNABLE TO PARTICIPATE IN NIH SCALE ASSESSMENT, UNABLE TO COMPLETE NIH AT THIS TIME.
[2025-03-11] MEDS: FAMOTIDINE INJ 10 MG/ML VIAL 2 ML 20 MG IVP (21:24)
[2025-03-11] MEDS: MethylPREDNISolone SOD SUCC 62.5 MG/ML 2ML VIAL 125 MG IVP (21:25)
[2025-03-11] MEDS: DiphenhydrAMINE INJ 50 MG/ML VIAL 25 MG IVP (21:25)
[2025-03-11 21:35] LABS: Amphetamine/Methamp Scrn,U Negative (Negative); Barbiturate Screen,Urine Negative (Negative); Benzodiazepines Screen,Urine Negative (Negative); Benzoylecgonine Screen, Ur Negative (Negative); Fentanyl Screen,Urine Negative (Negative); Opiate Screen,Urine Negative (Negative); THC Screen,Urine Negative (Negative)
--- NOTE | 2025-03-11 21:42 | PD.TNEURO ---
Tele Neuro Consultation Consultation Date 03/11/25 Most Recent Vital Signs Last Vital Signs Temp 97.4 F 03/11/25 20:50 Pulse 72 03/11/25 20:50 Resp 19 03/11/25 20:50 BP 118/67 03/11/25 20:50 Pulse Ox 97 03/11/25 20:54 O2 Del Method Nasal Cannula 03/11/25 20:54 O2 Flow Rate 2 03/11/25 20:54 Laboratory-Coagulation Panel PT 11.3 Seconds (9.0-12.2) 03/11/25 19:27 INR 1.0 (0.9-1.3) 03/11/25 19:27 APTT 25.6 Seconds (22.0-36.0) 03/11/25 19:27 Consultation Narrative [facility] Tele[facility]urology Consult Services Patient Name:???Marla Resendez Date of :???1935 Identification Number:??? Date of Service:???03/11/2025 21:00:32 Diagnosis:?G93.41 - Encephalopathy Metabolic Impression: ?49-year-old female presenting in consult for lethargy and encephalopathy. Patient Her dissipate in the neurological evaluation. Patient is bedbound. Unfortunately, there is no intervention at this time. Recommend goals of care discussion with family. Obtain MRI of the brain without contrast if able. Our recommendations are outlined below. Recommendations: ? Stroke/Telemetry Floor ? Neuro Checks (Q4) ? Bedside Swallow Eval ? DVT Prophylaxis ? IV Fluids, Normal Saline ? Head of Bed 30 Degrees ? Euglycemia and Avoid Hyperthermia (PRN Acetaminophen) Sign Out: ? Discussed with Emergency Department Provider Advanced Imaging: Advanced Imaging Deferred because: Poor functional status at baseline, a greater risk than benefit with acute intervention Metrics: Last Known Well: Unknown Dispatch Time: 03/11/2025 21:00:32 Arrival Time: 03/11/2025 18:06:00 Initial Response Time: 03/11/2025 21:03:51Symptoms: Lethargy. Initial patient interaction: 03/11/2025 21:09:18 NIHSS Assessment Completed: 03/11/2025 21:15:42Patient is not a candidate for Thrombolytic. 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 CT Head: I personally reviewed all the CT images that were available to me and it showed: No acute intracranial abnormalities Primary Provider Notified of Diagnostic Impression and Management Plan on: 03/11/2025 21:33:23 History of Present Illness:Patient is a 89 year old Female. Patient was brought by EMS for symptoms of Lethargy. 89-year-old female history of hypertension, diabetes, hyperlipidemia, bedbound residing in group home presenting consult for lethargy. At time of neurology evaluation, patient arouses to stimulation and cannot participate in the neurological examination. She resides in a group home and is bedbound. Past Medical History: ?Hypertension ?Diabetes Mellitus ?Hyperlipidemia Medications: No Anticoagulant use? Antiplatelet use:?Yes?Aspirin Reviewed EMR for current medications Allergies:? Reviewed Description:?Iodine Social History: Drug Use: No Family History: There is no family history of premature cerebrovascular disease pertinent to this consultation ROS :?ROS Cannot Be Obtained Because:? Patient Is Confused Past Surgical History: There Is No Surgical History Contributory To Today?s Visit NIHSS may not be reliable due to: Encephalopathy Examination: BP(110/73),?Pulse(71), 1A: Level of Consciousness - Requires repeated stimulation to arouse?+ 2 1B: Ask Month and Age - Could Not Answer Either Question Correctly?+ 2 1C: Blink Eyes & Squeeze Hands - Performs 0 Tasks?+ 2 2: Test Horizontal Extraocular Movements - Normal?+ 0 3: Test Visual Price - No Visual Loss?+ 0 4: Test Facial Palsy (Use Grimace if Obtunded) - Normal symmetry?+ 0 5A: Test Left Arm Motor Drift - No Movement?+ 4 5B: Test Right Arm Motor Drift - No Movement?+ 4 6A: Test Left Leg Motor Drift - No Movement?+ 4 6B: Test Right Leg Motor Drift - No Movement?+ 4 7: Test Limb Ataxia (FNF/Heel-Garduno) - Does Not Understand?+ 0 8: Test Sensation - Mild-Moderate Loss: Can Sense Being Touched?+ 1 9: Test Language/Aphasia - Mute/Global Aphasia: No Usable Speech/Auditory Comprehension?+ 3 10: Test Dysarthria - Mute/Anarthric?+ 2 11: Test Extinction/Inattention - No abnormality?+ 0 NIHSS Score:?28 Pre-Morbid Modified Marion Scale:5 Points = Severe disability; bedridden, incontinent and requiring constant nursing care and attention Spoke with :?Dr. Bhatti This consult was conducted in real time using interactive audio and video technology. Patient was informed of the technology being used for this visit and agreed to proceed. Patient located in hospital and provider located at home/office setting. Patient is being evaluated for possible acute neurologic impairment and high probability of imminent or life-threatening deterioration. I spent total of 32 minutes providing care to this patient, including time for face to face visit via telemedicine, review of medical records, imaging studies and discussion of findings with providers, the patient and/or family. Dr Jett Mckeon [facility] For Inpatient follow-up with [facility] physician please call [facility] at . As we are not an outpatient service for any post hospital discharge needs please contact the hospital for assistance. If you have any questions for the [facility] physicians or need to reconsult for clinical or diagnostic changes please contact us via [facility] at .
[2025-03-11 22:03] LABS: Base Excess 3 (-3-3); HCO3 29 mEq/L (20-26); O2 Saturation 99 % (91-98); PCO2 49 mmHg (32.0-48.0); PO2 104 mmHg (83-108); pH, Arterial 7.38 (7.35-7.45)
[2025-03-11 22:09] LABS: Allen Test Performed/OK; Inspired O2, VO2 Liters 3 L/min; Puncture Site Right Radial
[2025-03-12] VITALS (12 sets, daily range): BP systolic 100–138; BP diastolic 50–85; PULSE 67–95; RESP 12–92; TEMP 36.1–37.2; O2SAT 92–99
--- NOTE | 2025-03-12 | XR_ITS ---
Examinations: MRI Brain without intravenous contrast. MRA brain without intravenous contrast. MRA carotids without intravenous contrast 3-D vascular reconstructions Date and time of exam: March 12, 2025 1108 hours Comparison January 09, 2025 Indication: Altered mental status beginning 2 days ago Technique: Multiple axial and sagittal images of the brain have been obtained MRA brain carotid images without contrast obtained, including 3-D postprocessing, vascular maximum intensity projection images Findings: Sellaturcica is not enlarged. The optic chiasm and infundibular stalk are not remarkable. Prepontine and interpeduncular cisterns are not enlarged. No localized enlargement of the medulla or ximena. Fourth ventricle and cerebellar tonsils normal in position. Subacute hemorrhage is not seen. Fourth ventricle is midline. Mass in the cerebellopontine angle region is not evident. 7th and 8th nerve complexes exhibits symmetry. Globes are symmetrical with no retro-orbital mass. Increased white matter signal . Prominent Diffusion-weighted images demonstrate no foci of restricted diffusion Mass-effect upon the ventricular system is not identified. MRA carotid images degraded by patient motion. MRA brain images no large vessel occlusions Impression: Negative for acute hemorrhage mass effect or midline shift No acute infarct Chronic multi-infarct dementia pattern
[2025-03-12] MEDS: Magnesium Sulfate 1 gm Ivpb 1 GM/100 ML BAG IV (00:21)
--- NOTE | 2025-03-12 00:29 | ECHO_ITS ---
Transthoracic Echo Report Ht (in): 63 Wt (lb): 149 Exam Location: Echo Lab Status: Emergency Raisin Washer: Jojo Morrissey Indications: Procedure Performed: BP: 118 / 85 HR: 75 Technical Quality: Technically Difficult Study MEASUREMENTS (Male / Female) Normal Values 2D ECHO LV Diastolic Diameter PLAX 4.0 cm 4.2 - 5.9 / 3.9 - 5.3 cm LV Systolic Diameter PLAX 2.6 cm IVS Diastolic Thickness 0.7 cm 0.6 - 1.0 / 0.6 - 0.9 cm LVPW Diastolic Thickness 0.9 cm 0.6 - 1.0 / 0.6 - 0.9 cm LV Relative Wall Thickness 0.4 LVOT Diameter 1.4 cm LA Volume Index 32.1 cm?/m? 16 - 28 cm?/m? Ascending Aorta Diameter 2.4 cm DOPPLER AV Peak Velocity 156.7 cm/s AV Peak Gradient 9.8 mmHg LVOT Peak Velocity 71.7 cm/s LVOT Peak Gradient 2.1 mmHg AV Area Cont Eq pk 0.7 cm? MV Area PHT 4.6 cm? Mitral E Point Velocity 87.5 cm/s Mitral A Point Velocity 129.0 cm/s Mitral E to A Ratio 0.7 LV E' Lateral Velocity 6.7 cm/s Mitral E to LV E' Lateral Ratio 13.0 LV E' Septal Velocity 8.2 cm/s Mitral E to LV E' Septal Ratio 10.7 TR Peak Velocity 206.0 cm/s TR Peak Gradient 17.0 mmHg PV Peak Velocity 75.0 cm/s PV Peak Gradient 2.3 mmHg FINDINGS Left Ventricle Normal left ventricular size, wall thickness, systolic function with no obvious regional wall motion abnormalities. Normal left ventricular diastolic filling pattern for age. The ejection fraction is visually estimated at 60%. Right Ventricle The right ventricular ejection fraction is normal. Left Atrium The left atrium is normal by two-dimensional, color flow and Doppler imaging with no structural abnormalities, no thrombus formation present. Right Atrium The right atrium is normal by two-dimensional imaging, color flow and Doppler imaging with no structural abnormalities, no thrombus formation present. Atrial Septum The interatrial septum appears normal with no evidence of a shunt. Aorta The aortic root, ascending aorta, aortic arch and descending thoracic aorta are normal to two-dimensional, color flow and Doppler interrogation. Mitral Valve The mitral valve leaflets appear mildly calcified. There is mild mitral valve regurgitation. Aortic Valve The aortic valve leaflets appear sclerotic. There is no significant aortic valve regurgitation. Tricuspid Valve The tricuspid valve is normal by two-dimensional, color flow and Doppler interrogation. There is trace tricuspid regurgitation. Pulmonic Valve The pulmonic valve is not well visualized. There is no significant pulmonic valve regurgitation. Vessels The pulmonary artery appears normal. The inferior vena cava measures the upper limits of normal. Pericardium The pericardium is normal by two-dimensional imaging. There is no significant pericardial effusion. CONCLUSIONS Indication: CVA Normal LV size and function with an estimated EF of 60 to 65%. Indeterminate diastolic dysfunction. Normal RV size and function. Trace TR. RVSP normal MV leaflets are mildly calcified. Mild MR. Trace TR. Mild aortic valve sclerosis without stenosis. Upper normal IVC. Lonnie Mccray (Electronically Signed) Final Date: 12 March 2025 18:23
--- NOTE | 2025-03-12 00:30 | PD.RESHP ---
Documentation for date of: 03/12/25 HPI History of Present Illness Chief complaint: Altered mental status History of present illness: 89-year-old female with past medical history of hypertension, hyperlipidemia, diabetes mellitus, major depressive disorder, Alzheimer's dementia who presented to the ED due to altered mental status. Apparently per care facility staff patient is usually AAO x 4 and had GCS of 15 but apparently patient has not been herself and became altered around 6 PM 03/11/2025. When I went to examine the patient, she was arousable only to sternal rub, nonverbal, able to open her eyes, moving all 4 extremities, protecting her airway and did not want to participate in history taking or physical exam. Of note, patient at baseline uses a wheelchair and is able to ambulate short distances, the day before she was walking and talking with a friend. Stroke alert was called the patient will be admitted for acute encephalopathy and CVA workup. ED course: ED vitals: BP 104/70, HR 78, saturating 97% on room air ED labs: Normocytic anemia, ABG unremarkable, BUN 25, GFR 44, glucose 115, corrected calcium 8.4, magnesium 1.5, troponins negative, UA negative, tox screen negative CT head negative, head/neck CTA negative, chest x-ray negative for pneumonia, In the ED patient received methylprednisolone, magnesium, Benadryl, famotidine PMHx:DM2, HTN, asthma, MDD, Alzheimer's dementia, HLD, bed/wheelchair bound Medications (needs reconciliation): Donepezil 5 mg daily, Amlodipine 2.5 mg daily, Simvastatin 10 mg daily, Metformin 1000 mg daily, Ventolin as needed, Escitalopram 20 mg daily, Lyrica 75 mg BID, Singulair 10 mg Qday Surgical Hx: Unable to obtain information Allergies: Iodine Social history: From [facility] Code Status: Full Code Review of Systems Review of Systems ROS Unobtainable: unobtainable due to mental status Exam Vital Signs Temp Pulse Resp BP Pulse Ox O2 Del Method O2 Flow Rate 97.4 F 68 18 128/64 95 Nasal Cannula 2 03/11/25 20:50 03/12/25 00:23 03/12/25 00:23 03/12/25 00:23 03/12/25 00:23 03/12/25 00:23 03/12/25 00:23 Narrative Exam Physical Exam GENERAL: NAD, frail, nonverbal HEENT: Moist mucosa. Eyes open, symmetrical, & clear CARDIO: Heart RRR, no obvious murmurs PULM: No noted coughing/dyspnea CTA B/L, no R/W/R GI: Abdomen soft, nondistended, no pain on palpation. BSx4 SKIN/MSK/EXT: No wounds/rashes/edema/amputations, no pain on palpation. Pedal pulses present B/L NEURO:able to move all 4 extremities Results: Labs 03/11/25 19:27 03/11/25 19:27 Labs: Short CBC 03/11/25 Range/Units 19:27 WBC 10.2 (3.6-11.0) Thou/mm3 Hgb 10.4 L (12.0-16.0) g/dL Hct 32.2 L (36.0-46.0) % Plt Count 262 (140-440) Thou/mm3 BMP 03/11/25 19:27 Sodium 144 Potassium 4.3 Chloride 106 Carbon Dioxide 27.9 BUN 25 H Creatinine 1.2 Glucose 115 H Calcium 8.1 L Cardiac Enzymes 03/11/25 Range/Units 19:27 Troponin I < 0.020 (0.0-0.045) ng/mL Liver Function 03/11/25 Range/Units 19:27 Total Bilirubin 0.3 (0.3-1.2) mg/dL AST 12 (0-34) U/L ALT < 7 L (10-49) U/L Alkaline Phosphatase 84 (46-116) U/L Albumin 3.6 (3.4-4.8) gm/dL Urine 03/11/25 Range/Units 19:35 Urine Color Yellow (Lt Yel-Yel) Urine Clarity Clear (Clear/Hazy) Urine pH 5.5 (5.0-7.0) Ur Specific [place] 1.018 (1.001-1.035) Urine Protein Negative (Neg - Trace) Urine Glucose (UA) Negative (Negative) ABG Interpretation ABG results: 03/11/25 21:51 ABG pH 7.38 ABG pCO2 49 H ABG pO2 104 ABG HCO3 29 H ABG O2 Saturation 99 H ABG Base Excess 3 Quality Measures Quality Measures none Advance care planning discussed with:: patient Medications Home Medications and Allergies Home Medications ?Medication ?Instructions ?Recorded ?Confirmed ?Type acetaminophen 650 mg 650 mg PO Q6HR PRN pain 11/12/24 03/12/25 History tablet,extended release (8 Hour Pain Reliever) albuterol sulfate See Rx Instructions inhalation 11/12/24 03/12/25 History Q6HR PRN shortness of breath amlodipine 2.5 mg tablet 2.5 mg PO QDAY 11/12/24 03/12/25 History donepezil 5 mg tablet 5 mg PO HS 11/12/24 03/12/25 History escitalopram oxalate 20 mg tablet 20 mg PO QDAY 11/12/24 03/12/25 History ipratropium 0.5 mg-albuterol 3 mg 3 ml inhalation Q4H PRN shortness 11/12/24 03/12/25 History (2.5 mg base)/3 mL nebulization of breath soln lidocaine 4 % topical patch 1 patch topical Q4H PRN pain 11/12/24 03/12/25 History (Aspercreme (lidocaine)) metformin 1,000 mg tablet 1,000 mg PO QDAY 11/12/24 03/12/25 History montelukast 10 mg tablet 10 mg PO QDAY 11/12/24 03/12/25 History multivitamin (Daily Multi-Vitamin 1 tab PO QDAY 11/12/24 03/12/25 History tablet) polyethylene glycol 3350 17 17 g PO QDAY 11/12/24 03/12/25 History gram/dose oral powder (ClearLax) bisacodyl 10 mg rectal suppository 10 mg LA QDAY PRN constipation 01/10/25 03/12/25 History (Dulcolax (bisacodyl)) glycerin 2 drp ophthalmic (eye) Q4HR PRN 01/10/25 03/12/25 History dry eye(s) guaifenesin 100 mg/5 mL oral 200 mg PO Q6H PRN cough 01/10/25 03/12/25 History liquid (Adult Tussin Chest Congestion) magnesium hydroxide 400 mg/5 mL 30 ml PO Q72H PRN constipation 01/10/25 03/12/25 History oral suspension (Dulcolax (magnesium hydroxide)) pregabalin 75 mg capsule (Lyrica) 75 mg PO BID 01/10/25 03/12/25 History sodium phosphates 19 gram-7 118 ml LA Q72H PRN constipation 01/10/25 03/12/25 History gram/118 mL enema (Enema) acetaminophen 325 mg tablet 650 mg PO Q6H PRN pain 03/12/25 03/12/25 History artificial tears solution eye drops 2 drp ophthalmic (eye) Q4H PRN eye 03/12/25 03/12/25 History irritation atorvastatin 80 mg tablet 80 mg PO HS 03/12/25 03/12/25 History furosemide 20 mg tablet (Lasix) 20 mg PO BID 03/12/25 03/12/25 History pregabalin 100 mg capsule (Lyrica) 100 mg PO Q8H 03/12/25 03/12/25 History Allergies Allergy/AdvReac Type Severity Reaction Status Date / Time iodine Allergy Verified 01/09/25 08:58 tositumomab iodine-131 Allergy Verified 01/09/25 08:58 Visit Medications Acetaminophen (Acetaminophen Supp 650 Mg Supp) 650 mg LA Q6HR PRN PRN Reason: Fever > 100 Stop: 04/11/25 00:21 Acetaminophen (Acetaminophen Supp 650 Mg Supp) 1,000 mg LA Q6H PRN PRN Reason: PAIN SCALE 1-3 (mild Stop: 04/11/25 00:21 Dextrose (Dextrose 50%-Water Inj 50 Ml Syringe) 25 ml IV Q15MIN PRN PRN Reason: BG 50-70 responsive npo pt Stop: 04/11/25 00:27 Dextrose (Dextrose 50%-Water Inj 50 Ml Syringe) 50 ml IV Q15MIN PRN PRN Reason: BG <50 OR BG <70 & pt unresponsive Stop: 04/11/25 00:27 Docusate Sodium (Docusate Sod 100 Mg Capsule) 100 mg PO QDAY DANIEL; Protocol Stop: 04/11/25 08:59 Glucagon (Glucagon Inj 1 Mg Vial) 1 mg IM Q15MIN PRN PRN Reason: BG <70, and no IV access Magnesium Sulfate/Dextrose (Magnesium Sulfate Ivpb) 1 gm in 100 mls @ 100 mls/hr IV X1 ONE Stop: 03/12/25 00:59 Last Admin: 03/12/25 00:21 Dose: 100 mls/hr Sodium Chloride (Ns) 1,000 mls @ 60 mls/hr IV .[id number] DANIEL Stop: 03/12/25 17:07 Insulin Human Lispro (Insulin Lispro (Admelog) 1 Unit/0.01 Ml Unit) 0 unit SC AC COUNTS INCLUDE 234 BEDS AT THE [facility]; Protocol Stop: 04/11/25 07:29 Ondansetron HCl (Ondansetron Inj 2 Mg/Ml Inj 2 Ml) 4 mg IVP Q6H PRN; Protocol PRN Reason: NAUSEA OR VOMITING Stop: 04/11/25 00:21 Pantoprazole Sodium (Pantoprazole Inj 40 Mg Vial) 40 mg IVP QDAY COUNTS INCLUDE 234 BEDS AT THE [facility] Stop: 04/11/25 08:59 Sennosides (Senna Tablet) 1 tab PO QDAY COUNTS INCLUDE 234 BEDS AT THE [facility]; Protocol Stop: 04/11/25 08:59 Discontinued Medications Diphenhydramine HCl (Diphenhydramine Inj 50 Mg/Ml Vial) 25 mg IVP X1 ONE Stop: 03/11/25 21:09 Last Admin: 03/11/25 21:25 Dose: 25 mg Famotidine (Famotidine Inj 10 Mg/Ml Vial 2 Ml) 20 mg IVP X1 ONE Stop: 03/11/25 21:09 Last Admin: 03/11/25 21:24 Dose: 20 mg Methylprednisolone Sodium Succinate (Methylprednisolone Sod Succ 62.5 Mg/Ml 2ml Vial) 125 mg IVP X1 ONE Stop: 03/11/25 21:09 Last Admin: 03/11/25 21:25 Dose: 125 mg Assessment & Plan Plan 89-year-old female with past medical history of hypertension, hyperlipidemia, diabetes, asthma, major depressive disorder, Alzheimer's dementia who presented to the ED due to altered mental status. Stroke alert was called and patient was admitted for CVA workup. #Acute encephalopathy #CVA workup #Alzheimers dementia Etiologies can include metabolic, medication induced, CVA, advanced dementia Per ED physician patient takes clonazepam At the time of my examination patient was only arousable to sternal rub, was able to open eyes, move all [address] head negative, CTA head/neck negative U-Tox negative ? Consider goals of care per tele neuro recs ? MRI brain ? Aspirin 81 mg ? High intensity statin ? Echo with bubble study ? Aspiration precautions ? Neurochecks every 4 hours ? Neuroconsulted, appreciate recs ? Euglycemia ? Speech eval ? Physical therapy ? Nurse swallow screen ? IVF's #Diabetes mellitus type 2 Last A1c: 6.6 (01/10/2025) ? SSI ? Hypoglycemia protocol in place #Hypertension Currently normotensive at this time Health Maintenance: Disposition: Telemetry, CVA workup Fluids: NS Feeding: N.p.o. till swallow screen Thrombo prophylaxis: SCDs Gastric Ulcer prophylaxis: Pantoprazole CODE STATUS: Full code Case discussed with my attending Dr. Manny Hoffmann MD PGY-1 Attending Provider Attestation/Addendum I have examined the patient, reviewed labs and imaging findings, discussed the case with the resident(s), and reviewed entered orders. I agree with the plan of care as outlined in this note, with these additional summaries/recommendations: After examination of the patient and review of the clinical data, I feel that this patient needs admission to the hospital for further treatment and evaluation. Patient is a 89-year-old female with a history of Alzheimer's dementia, bedbound, primary hypertension, hyperlipidemia, diabetes mellitus type 2, major depressive disorder, chronic lower back pain, COPD, neuropathy, and recurrent episodes of encephalopathy who presents to [facility] emergency department on 03/11/[address] [facility] with chief complaint of altered mental status. Patient seen at bedside. She is not responding to questions. Per staff she opened her eyes earlier and yelled [facility] Patient diagnosed with acute encephalopathy and CVA rule out. She has had multiple admissions in the past for similar symptoms. On previous admissions patient gradually improved over days. Unclear if she received any sedating medicines at SNF. Will f/u in am. NIHSS score of 28 on admission. No obvious metabolic etiology at this time. No evidence of infection. No evidence of toxic etiology. CT head negative for acute hemorrhage, mass effect or midline shift. CTA head and neck no significant neck arterial stenosis and no LVO. Order TSH. Standard delirium precautions. CVA rule out with MRI brain, echo with bubble, and speech therapy referral. Risk factor screening with A1c, TSH, and lipid panel. Patient was seen by telemetry neurology who recommends MRI brain and goals of care given patient's functional status and being bedbound. Patient did receive aspirin at SNF today and we will continue. Start high intensity statin once tolerating oral intake. Patient is currently normotensive and will resume home antihypertensives as tolerated. Start insulin sliding scale for diabetes mellitus type 2 with Accu-Cheks. Target blood sugar of 140-180 while hospitalized. Continue n.p.o. until passed swallow screen. Hypomagnesia present and replacement given. Repeat level in AM. Please see residents note for additional details and management. Dr. Manny MD
[2025-03-12] MEDS: SODIUM CHLORIDE 0.9% 1000 ML 1,000 ML 60 ML IV (00:46)
[2025-03-12 05:52] LABS: Basophils % (Auto) 0 % (0-2.5); Eosinophils % (Auto) 0 % (0-10); Hematocrit 33.6 % (36.0-46.0); Hemoglobin 11.1 g/dL (12.0-16.0); Immature Granulocytes % (Auto) 1 % (0-0); Immature Granulocytes Auto 0.05 Thou/mm3 (0.00-0.00); Lymphocytes # (Auto) 1.1 Thou/mm3 (1.0-4.8); Lymphocytes % (Auto) 10 % (10-50); Mean Corpuscular Hemoglobin 29.7 pg (25.0-35.0); Mean Corpuscular Volume 90 fL (80-100); Monocytes # (Auto) 0.1 Thou/mm3 (0.0-0.8); Monocytes % (Auto) 1 % (0-12); Neutrophils # (Auto) 9.6 Thou/mm3 (1.8-7.7); Neutrophils % (Auto) 89 % (37-80); Nucleated Red Blood Cell % 0 /100 WBC (0); Platelet Count 262 Thou/mm3 (140-440); RDW Standard Deviation 44.5 fL (36.4-46.3); Red Blood Count 3.74 Miln/mm3 (4.00-5.20); White Blood Count 10.9 Thou/mm3 (3.6-11.0)
[2025-03-12 06:09] LABS: Glucose Estimated Average 128 mg/dL (80-131); Hemoglobin A1C 6.1 % Hgb (4.8-6.0)
[2025-03-12 06:35] LABS: Alanine Aminotransferase < 7 U/L (10-49); Albumin, Serum 3.8 gm/dL (3.4-4.8); Albumin/Globulin Ratio 1.7 (1.2-2.2); Alkaline Phosphatase 84 U/L (46-116); Anion Gap 12 (7-16); Aspartate Amino Transferase 13 U/L (0-34); BUN/Creatinine Ratio 18 Ratio (12-20); Bilirubin,Total 0.3 mg/dL (0.3-1.2); Blood Urea Nitrogen 22 mg/dL (9-23); Calcium 8.3 mg/dL (8.3-10.6); Calcium (Corrected) 8.5 mg/dL (8.5-10.1); Carbon Dioxide 25.5 mMol/L (20.0-31.0); Chloride 105 mMol/L (98-107); Creatinine (Component) 1.2 mg/dL (0.6-1.3); Estimated Creatinine Clearance 35.2 mL/min (>60); Globulin 2.2 gm/dL (2.3-3.5); Glucose 168 mg/dL (74-106); Magnesium 1.9 mg/dL (1.6-2.6); Osmolality,Calculated 290 (275-295); Potassium 4.4 mMol/L (3.4-5.1); Sodium 142 mMol/L (136-145); Thyroid Stimulating Hormone 0.57 uIU/mL (0.55-4.78); eGFR 44 See Note
[2025-03-12] MEDS: SENNA TABLET 1 TAB PO (09:10)
[2025-03-12] MEDS: ASPIRIN EC 81 MG TABEC PO (09:10)
[2025-03-12] MEDS: DOCUSATE SOD 100 MG CAPSULE PO (09:10)
[2025-03-12] MEDS: PANTOPRAZOLE INJ 40 MG VIAL IVP (09:10)
--- NOTE | 2025-03-12 11:44 | PC.SS ---
STOCKBROKING DEALER conducted bedside contact with the patient conduct initial assessment and to discuss discharge planning.? Information obtained from patient?s son, Nirmal Resendez .? 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 Patient has resided at [facility] for approximately 2 years.? Patient is wheelchair bound.? Patient does not utilize oxygen at facility.? Currently on 2L.? Patient requires assistance with completion of ADL?s.? Patient?s surrogate medical decision maker is son, Nirmal Resendez.? Facility PCP is Dr. Cortez.? Patient does not possess any specialty providers.? Discharge plan is for the patient to return to [facility].? Patient possesses transport coverage for return to [facility].? dietary services director to arrange transportation on behalf of the patient.? No further discharge needs identified by the patient.? No further intervention required at this time, nephrology social worker will be available to address any further concerns.? Next of Kin: Nirmal Resendez D/C Plan: SNF
[2025-03-12] MEDS: INSULIN LISPRO (AdmeLOG) 1 UNIT/0.01 ML UNIT SC (12:10)
--- NOTE | 2025-03-12 13:54 | ESPR_ITS ---
<Statement entered by Nakul Ash MD - 03/16/25 14:49> I reviewed above note and agree with findings and plans. I have also personally examined the patient with medicine team and went over assessment and plan with medical team including internet marketing intern and resident physician. Documentation for date of: 03/12/25 Subjective Subjective Interval history: Patient examined at bedside. No acute events overnight. Patient is oriented to self only today. Less lethargic than yesterday. Blood sugars well-controlled, vitals are stable. Imaging including CT head, CTA head/neck, MRI negative for acute changes. Echo with bubble study is pending along with physical therapy eval. Continue aspirin, atorvastatin. Final neurorecommendations pending. Exam Vital Signs Temp Pulse Resp BP Pulse Ox O2 Del Method O2 Flow Rate 97.9 F 74 12 118/85 H 93 L Nasal Cannula 2 03/12/25 07:58 03/12/25 09:00 03/12/25 09:00 03/12/25 07:58 03/12/25 07:58 03/12/25 07:58 03/12/25 07:58 Narrative Exam General: Elderly female, No acute distress, Albanian speaking HEENT: NCAT, No JVD noted. Mucosa dry. Pupils are equal and reactive to light bilaterally Cardiovascular: Normal S1 and S2. Regular rate and rhythm. Respiratory: Lungs are clear to auscultation bilaterally. No wheezing or crackles heard. Abdomen: Soft, nontender, not distended, normal bowel sounds. Skin: Warm to touch, dry, no rashes noted Musculoskeletal: No gross injuries. Able to move all 4 extremities. No pitting edema Neuro: Alert and oriented x1. No focal neuro deficits. Psych: unable to assess Objective Labs 03/12/25 05:10 03/12/25 05:10 Labs: Laboratory Results - last 24 hr 03/11/25 03/11/25 03/11/25 19:27 19:35 21:51 WBC 10.2 RBC 3.54 L Hgb 10.4 L Hct 32.2 L MCV 91 MCH 29.4 MCHC 32.3 RDW Std Deviation 45.2 Plt Count 262 Neut % (Auto) 66 Lymph % (Auto) 22 [place] % (Auto) 8 Eos % (Auto) 3 Baso % (Auto) 1 Neut # (Auto) 6.7 Lymph # (Auto) 2.2 [place] # (Auto) 0.8 Eos # (Auto) 0.3 Baso # (Auto) 0.1 Immature Gran # (Auto) 0.02 H Absolute Nucleated RBC 0.00 Immature Gran % 0 Nucleated RBC % 0 PT 11.3 INR 1.0 APTT 25.6 Puncture Site Right Radial ABG pH 7.38 ABG pCO2 49 H ABG pO2 104 ABG HCO3 29 H ABG O2 Saturation 99 H ABG Base Excess 3 Oxygen Liter Flow 3 Sodium 144 Potassium 4.3 Chloride 106 Carbon Dioxide 27.9 Anion Gap 10 BUN 25 H Creatinine 1.2 Estim Creat Clear Calc 30.5 L eGFR 44 L BUN/Creatinine Ratio 21 H Glucose [address] Glu mg/dL Hemoglobin A1c Calculated Osmolality 292 Calcium 8.1 L Corrected Calcium 8.4 L Magnesium 1.5 L Total Bilirubin 0.3 AST 12 ALT < 7 L Alkaline Phosphatase 84 Ammonia 17 Troponin I < 0.020 Total Protein 5.7 Albumin 3.6 Globulin 2.1 L Albumin/Globulin Ratio 1.7 TSH Ur Collection Type Catheter Urine Color Yellow Urine Clarity Clear Urine pH 5.5 Ur Specific [place] 1.018 Urine Protein Negative Urine Glucose (UA) Negative Urine Ketones Negative Urine Blood Negative Urine Nitrite Negative Urine Bilirubin Negative Urine Urobilinogen (Auto) Negative Ur Leukocyte Esterase Negative Urine RBC 3 Urine WBC 2 Ur Squamous Epith Cells < 1 Urine Bacteria None Hyaline Casts < 1 Urine Opiates Screen Negative Urine Fentanyl Screen Negative Ur Barbiturates Screen Negative U Amphetamin/Meth Scrn Negative U Benzodiazepines Scrn Negative U Cocaine Metab Screen Negative U Marijuana (THC) Screen Negative Ethyl Alcohol < 3.0 03/12/25 05:10 WBC 10.9 RBC 3.74 L Hgb 11.1 L Hct 33.6 L MCV 90 MCH 29.7 MCHC 33.0 RDW Std Deviation 44.5 Plt Count 262 Neut % (Auto) 89 H Lymph % (Auto) 10 [place] % (Auto) 1 Eos % (Auto) 0 Baso % (Auto) 0 Neut # (Auto) 9.6 H Lymph # (Auto) 1.1 [place] # (Auto) 0.1 Eos # (Auto) 0.0 Baso # (Auto) 0.0 Immature Gran # (Auto) 0.05 H Absolute Nucleated RBC 0.00 Immature Gran % 1 H Nucleated RBC % 0 PT INR APTT Puncture Site ABG pH ABG pCO2 ABG pO2 ABG HCO3 ABG O2 Saturation ABG Base Excess Oxygen Liter Flow Sodium 142 Potassium 4.4 Chloride 105 Carbon Dioxide 25.5 Anion Gap 12 BUN 22 Creatinine 1.2 Estim Creat Clear Calc 35.2 L eGFR 44 L BUN/Creatinine Ratio [address]ucose [address] Glu mg/dL 128 Hemoglobin A1c 6.1 H Calculated Osmolality 290 Calcium 8.3 Corrected Calcium 8.5 Magnesium 1.9 Total Bilirubin 0.3 AST 13 ALT < 7 L Alkaline Phosphatase 84 Ammonia Troponin I Total Protein 6.0 Albumin 3.8 Globulin 2.2 L Albumin/Globulin Ratio 1.7 TSH 0.57 Ur Collection Type Urine Color Urine Clarity Urine pH Ur Specific [place] Urine Protein Urine Glucose (UA) Urine Ketones Urine Blood Urine Nitrite Urine Bilirubin Urine Urobilinogen (Auto) Ur Leukocyte Esterase Urine RBC Urine WBC Ur Squamous Epith Cells Urine Bacteria Hyaline Casts Urine Opiates Screen Urine Fentanyl Screen Ur Barbiturates Screen U Amphetamin/Meth Scrn U Benzodiazepines Scrn U Cocaine Metab Screen U Marijuana (THC) Screen Ethyl Alcohol ABG Interpretation ABG results: 03/11/25 21:51 ABG pH 7.38 ABG pCO2 49 H ABG pO2 104 ABG HCO3 29 H ABG O2 Saturation 99 H ABG Base Excess 3 Quality Measures Quality Measures none Advance care planning discussed with:: other Assessment & Plan Assessment Current Active Medications: Generic Name Dose Route Start Last Admin Trade Name Freq PRN Reason Stop Dose Admin Acetaminophen 650 mg 03/12/25 00:22 Acetaminophen Supp 650 Mg Supp MD 04/11/25 00:21 Q6HR PRN Fever > 100 Acetaminophen 1,000 mg 03/12/25 00:22 Acetaminophen Supp 650 Mg Supp MD 04/11/25 00:21 Q6H PRN PAIN SCALE 1-3 (mild Aspirin 81 mg 03/12/25 09:00 03/12/25 09:10 Aspirin Ec 81 Mg Tabec PO 04/11/25 08:59 81 mg QDAY DANIEL Administration Atorvastatin Calcium 80 mg 03/12/25 21:00 Atorvastatin Calcium 20 Mg Tablet PO 04/11/25 20:59 HS DANIEL Dextrose 25 ml 03/12/25 00:28 Dextrose 50%-Water Inj 50 Ml Syringe IV 04/11/25 00:27 Q15MIN PRN BG 50-70 responsive npo pt Dextrose 50 ml 03/12/25 00:28 Dextrose 50%-Water Inj 50 Ml Syringe IV 04/11/25 00:27 Q15MIN PRN BG <50 OR BG <70 & pt unresponsive Docusate Sodium 100 mg 03/12/25 09:00 03/12/25 09:10 Docusate Sod 100 Mg Capsule PO 04/11/25 08:59 100 mg QDAY DANIEL Administration Protocol Glucagon 1 mg 03/12/25 00:28 Glucagon Inj 1 Mg Vial IM Q15MIN PRN BG <70, and no IV access Sodium Chloride 1,000 mls @ 60 mls/hr 03/12/25 00:28 03/12/25 00:46 Ns IV 03/12/25 17:07 60 mls/hr .[id number] DANIEL Administration Insulin Human Lispro 0 unit 03/12/25 06:00 03/12/25 12:10 Insulin Lispro (Admelog) 1 Unit/0.01 Ml Unit SC 04/11/25 05:59 1 unit Q6HR DANIEL Administration Protocol Labetalol HCl 10 mg 03/12/25 00:49 Labetalol Inj 5 Mg/Ml Vial 20 Ml IVP 04/11/25 00:48 Q6H PRN SBP>220 Ondansetron HCl 4 mg 03/12/25 00:22 Ondansetron Inj 2 Mg/Ml Inj 2 Ml IVP 04/11/25 00:21 Q6H PRN NAUSEA OR VOMITING Protocol Pantoprazole Sodium 40 mg 03/12/25 09:00 03/12/25 09:10 Pantoprazole Inj 40 Mg Vial IVP 04/11/25 08:59 40 mg QDAY DANIEL Administration Sennosides 1 tab 03/12/25 09:00 03/12/25 09:10 Senna Tablet PO 04/11/25 08:59 1 tab QDAY DANIEL Administration Protocol Plan 89-year-old female with past medical history of hypertension, hyperlipidemia, diabetes, asthma, major depressive disorder, Alzheimer's dementia who presented to the ED due to altered mental status. Stroke alert was called and patient was admitted for CVA workup. #Acute encephalopathy #CVA workup #Alzheimers dementia Etiologies can include metabolic, medication induced, CVA, advanced dementia Per ED physician patient takes clonazepam CT head negative, CTA head/neck negative MRI head negative U-Tox negative ? Consider goals of care per tele neuro recs ? Aspirin 81 mg ? High intensity statin ? Echo with bubble study pending ? Speech eval--passed. ? Physical therapy--pending ? Aspiration precautions ? Neurochecks every 4 hours ? Neuroconsulted, appreciate recs ? Euglycemia #Diabetes mellitus type 2 A1c this admission 6.1 ? SSI ? Hypoglycemia protocol in place #Hypertension Currently normotensive at this time Health Maintenance: Disposition: Telemetry, CVA workup Feeding: dysphagia mechanical soft Thrombo prophylaxis: SCDs Gastric Ulcer prophylaxis: Pantoprazole CODE STATUS: Full code The patient's management plan was discussed with my attending physician Dr. Ash. Anyi Lee, PGY-1
[2025-03-12] MEDS: ATORVASTATIN CALCIUM 20 MG TABLET 80 MG PO (20:07)
[2025-03-13] VITALS (9 sets, daily range): BP systolic 108–153; BP diastolic 55–73; PULSE 64–86; RESP 14–95; TEMP 36–36.8; O2SAT 92–95
[2025-03-13 05:45] LABS: Basophils # (Auto) 0.1 Thou/mm3 (0.0-0.2); Basophils % (Auto) 1 % (0-2.5); Eosinophils # (Auto) 0.1 Thou/mm3 (0.0-0.5); Eosinophils % (Auto) 1 % (0-10); Hematocrit 30.2 % (36.0-46.0); Hemoglobin 9.8 g/dL (12.0-16.0); Immature Granulocytes % (Auto) 0 % (0-0); Immature Granulocytes Auto 0.04 Thou/mm3 (0.00-0.00); Lymphocytes # (Auto) 2.1 Thou/mm3 (1.0-4.8); Lymphocytes % (Auto) 20 % (10-50); Mean Corpuscular HGB Conc 32.5 g/dl (31.0-37.0); Mean Corpuscular Hemoglobin 29.2 pg (25.0-35.0); Mean Corpuscular Volume 90 fL (80-100); Monocytes # (Auto) 0.7 Thou/mm3 (0.0-0.8); Monocytes % (Auto) 6 % (0-12); Neutrophils # (Auto) 7.6 Thou/mm3 (1.8-7.7); Neutrophils % (Auto) 72 % (37-80); Nucleated Red Blood Cell % 0 /100 WBC (0); Platelet Count 288 Thou/mm3 (140-440); RDW Standard Deviation 44.5 fL (36.4-46.3); Red Blood Count 3.36 Miln/mm3 (4.00-5.20); White Blood Count 10.5 Thou/mm3 (3.6-11.0)
[2025-03-13 06:13] LABS: Alanine Aminotransferase < 7 U/L (10-49); Albumin, Serum 3.4 gm/dL (3.4-4.8); Albumin/Globulin Ratio 1.7 (1.2-2.2); Alkaline Phosphatase 72 U/L (46-116); Anion Gap 10 (7-16); Aspartate Amino Transferase 10 U/L (0-34); BUN/Creatinine Ratio 23 Ratio (12-20); Bilirubin,Total 0.4 mg/dL (0.3-1.2); Blood Urea Nitrogen 28 mg/dL (9-23); Calcium 8.2 mg/dL (8.3-10.6); Calcium (Corrected) 8.7 mg/dL (8.5-10.1); Carbon Dioxide 28.2 mMol/L (20.0-31.0); Chloride 108 mMol/L (98-107); Creatinine (Component) 1.2 mg/dL (0.6-1.3); Estimated Creatinine Clearance 36.1 mL/min (>60); Glucose 105 mg/dL (74-106); Magnesium 1.8 mg/dL (1.6-2.6); Osmolality,Calculated 296 (275-295); Phosphorous 3.2 mg/dL (2.4-5.1); Potassium 4.1 mMol/L (3.4-5.1); Sodium 146 mMol/L (136-145); Total Protein 5.4 gm/dL (5.7-8.2); eGFR 44 See Note
[2025-03-13] MEDS: PANTOPRAZOLE INJ 40 MG VIAL IVP (09:02)
[2025-03-13] MEDS: ASPIRIN EC 81 MG TABEC PO (09:02)
[2025-03-13] MEDS: DOCUSATE SOD 100 MG CAPSULE PO (09:02)
[2025-03-13] MEDS: SENNA TABLET 1 TAB PO (09:03)
--- NOTE | 2025-03-13 13:01 | ESPR_ITS ---
<Statement entered by Nakul Ash MD - 03/18/25 09:33> I reviewed above note and agree with findings and plans. I have also personally examined the patient with medicine team and went over assessment and plan with medical team including buying intern and resident physician. Documentation for date of: 03/13/25 Subjective Subjective Interval history: Patient examined at bedside. No events overnight, patient has no major complaints. She is oriented to self. Blood sugars are stable, vitals stable, saturating 94% on room air. No new focal neurologic deficits, no weakness on physical exam. Telemetry was reviewed with heart rate ranging 50-75 bpm, normal sinus rhythm. CBC remarkable for acute drop in hemoglobin 9.8. Per nursing, no noticeable blood in the stool. Echo was done but without bubble study. EF 60-65% MRI brain negative for LVO, negative for acute infarcts. Continue aspirin and atorvastatin. Final neurology recommendations pending. Physical therapy evaluation pending. Anticipate discharge next 24 hours. Exam Vital Signs Temp Pulse Resp BP Pulse Ox O2 Del Method O2 Flow Rate 97.1 F 69 17 112/73 95 Room Air 2 03/13/25 08:00 03/13/25 08:07 03/13/25 08:07 03/13/25 08:00 03/13/25 08:00 03/13/25 08:00 03/12/25 12:00 Narrative Exam General: Elderly female, No acute distress, Cymra[place] speaking HEENT: NCAT, No JVD noted. Mucosa dry. Pupils are equal and reactive to light bilaterally Cardiovascular: Normal S1 and S2. Regular rate and rhythm. Respiratory: Lungs are clear to auscultation bilaterally. No wheezing or crackles heard. Abdomen: Soft, nontender, not distended, normal bowel sounds. Skin: Warm to touch, dry, no rashes noted Musculoskeletal: No gross injuries. Able to move all 4 extremities. No pitting edema Neuro: Alert and oriented x1. No focal neuro deficits. Psych: unable to assess Objective Labs 03/13/25 04:35 03/13/25 04:35 Labs: Laboratory Results - last 24 hr 03/13/25 04:35 WBC 10.5 RBC 3.36 L Hgb 9.8 L Hct 30.2 L MCV 90 MCH 29.2 MCHC 32.5 RDW Std Deviation 44.5 Plt Count 288 Neut % (Auto) 72 Lymph % (Auto) 20 [place] % (Auto) 6 Eos % (Auto) 1 Baso % (Auto) 1 Neut # (Auto) 7.6 Lymph # (Auto) 2.1 [place] # (Auto) 0.7 Eos # (Auto) 0.1 Baso # (Auto) 0.1 Immature Gran # (Auto) 0.04 H Absolute Nucleated RBC 0.00 Immature Gran % 0 Nucleated RBC % 0 Sodium 146 H Potassium 4.1 Chloride 108 H Carbon Dioxide 28.2 Anion Gap 10 BUN 28 H Creatinine 1.2 Estim Creat Clear Calc 36.1 L eGFR 44 L BUN/Creatinine Ratio 23 H Glucose 105 D Calculated Osmolality 296 H Calcium 8.2 L Corrected Calcium 8.7 Phosphorus 3.2 Magnesium 1.8 Total Bilirubin 0.4 AST 10 ALT < 7 L Alkaline Phosphatase 72 Total Protein 5.4 L Albumin 3.4 Globulin 2.0 L Albumin/Globulin Ratio 1.7 ABG Interpretation ABG results: 03/11/25 21:51 ABG pH 7.38 ABG pCO2 49 H ABG pO2 104 ABG HCO3 29 H ABG O2 Saturation 99 H ABG Base Excess 3 Quality Measures Quality Measures none Advance care planning discussed with:: patient Assessment & Plan Assessment Current Active Medications: Generic Name Dose Route Start Last Admin Trade Name Freq PRN Reason Stop Dose Admin Acetaminophen 650 mg 03/12/25 00:22 Acetaminophen Supp 650 Mg Supp ND 04/11/25 00:21 Q6HR PRN Fever > 100 Acetaminophen 1,000 mg 03/12/25 00:22 Acetaminophen Supp 650 Mg Supp ND 04/11/25 00:21 Q6H PRN PAIN SCALE 1-3 (mild Aspirin 81 mg 03/12/25 09:00 03/13/25 09:02 Aspirin Ec 81 Mg Tabec PO 04/11/25 08:59 81 mg QDAY DANIEL Administration Atorvastatin Calcium 80 mg 03/12/25 21:00 03/12/25 20:07 Atorvastatin Calcium 20 Mg Tablet PO 04/11/25 20:59 80 mg HS DANIEL Administration Dextrose 25 ml 03/12/25 00:28 Dextrose 50%-Water Inj 50 Ml Syringe IV 04/11/25 00:27 Q15MIN PRN BG 50-70 responsive npo pt Dextrose 50 ml 03/12/25 00:28 Dextrose 50%-Water Inj 50 Ml Syringe IV 04/11/25 00:27 Q15MIN PRN BG <50 OR BG <70 & pt unresponsive Docusate Sodium 100 mg 03/12/25 09:00 03/13/25 09:02 Docusate Sod 100 Mg Capsule PO 04/11/25 08:59 100 mg QDAY [facility] Administration Protocol Glucagon 1 mg 03/12/25 00:28 Glucagon Inj 1 Mg Vial IM Q15MIN PRN BG <70, and no IV access Insulin Human Lispro 0 unit 03/12/25 06:00 03/13/25 11:28 Insulin Lispro (Admelog) 1 Unit/0.01 Ml Unit SC 04/11/25 05:59 Not Given Q6HR DANIEL Protocol Labetalol HCl 10 mg 03/12/25 00:49 Labetalol Inj 5 Mg/Ml Vial 20 Ml IVP 04/11/25 00:48 Q6H PRN SBP>220 Ondansetron HCl 4 mg 03/12/25 00:22 Ondansetron Inj 2 Mg/Ml Inj 2 Ml IVP 04/11/25 00:21 Q6H PRN NAUSEA OR VOMITING Protocol Pantoprazole Sodium 40 mg 03/14/25 09:00 Pantoprazole 40 Mg Tablet PO 04/13/25 08:59 QDAY [facility] Protocol Sennosides 1 tab 03/12/25 09:00 03/13/25 09:03 Senna Tablet PO 04/11/25 08:59 1 tab QDAY [facility] Administration Protocol Plan 89-year-old female with past medical history of hypertension, hyperlipidemia, diabetes, asthma, major depressive disorder, Alzheimer's dementia who presented to the ED due to altered mental status. Stroke alert was called and patient was admitted for CVA workup. #Acute encephalopathy #Left sided weakness likely due to TIA #Alzheimers dementia Acute encephalopathy DDx: Polypharmacy, dementia, stroke. Work up for stroke including CT head, CTA head/neck, MR brain negative. Echo (no bubble) showed EF 60-65% U-Tox negative ? Consider goals of care per tele neuro recs ? Aspirin 81 mg ? High intensity statin ? Speech eval--passed. ? Physical therapy--pending ? Aspiration precautions ? Neurochecks every 4 hours ? Neuroconsulted, appreciate recs ? Euglycemia #Diabetes mellitus type 2 A1c this admission 6.1 ? SSI ? Hypoglycemia protocol in place #Hypertension Currently normotensive at this time Health Maintenance: Disposition: Telemetry acute encephalopathy, anticipate discharge next 24 hours pending PT and neuro recs. Patient will be going back to SNF. Feeding: dysphagia mechanical soft DVT prophylaxis: SCDs Gastric Ulcer prophylaxis: Pantoprazole CODE STATUS: Full code The patient's management plan was discussed with my attending physician Dr. Ash. Anyi Lee, PGY-1
--- NOTE | 2025-03-13 14:29 | PC.SS ---
Rounding Note: Neurology recommendations are pending. Plan is to d/c patient tomorrow to [facility].
[2025-03-13] MEDS: Magnesium Sulfate 2 GM Ivpb 2 GM/50 ML BAG IV (16:12)
[2025-03-13] MEDS: ATORVASTATIN CALCIUM 20 MG TABLET 80 MG PO (20:13)
--- NOTE | 2025-03-13 23:36 | ESPR_ITS ---
Documentation for date of: 03/13/25 Subjective Subjective Interval history: Patient was seen in telemetry today at the bedside. No issues or complaints overnight. Exam - Neurology Vital Signs Temp Pulse Resp BP Pulse Ox O2 Del Method O2 Flow Rate 97.0 F 73 18 136/62 H 95 Room Air 2 03/13/25 20:00 03/13/25 20:16 03/13/25 20:16 03/13/25 20:00 03/13/25 20:00 03/13/25 20:00 03/12/25 12:00 Narrative Exam GENERAL APPEARANCE: Well hydrated, well-nourished in no acute distress. HEENT: Normocephalic, atraumatic, extraocular movements intact. Pupils: Equal reacting to light NECK: Supple, no JVD or bruits. CARDIOVASULAR: Heart: S1, S2 heard, regular without S3-S4 or murmur no rubs or gallops. LUNGS/CHEST: Clear to auscultation bilaterally. No rails, rhonchi, or wheezing. Normal inspection. ABDOMEN: Soft, nontender, with normal bowel sounds. No pulsatile masses. No rebound, rigidity, or guarding. Normal inspection and palpation. EXTREMITIES: Normal inspection and palpation. No edema, clubbing or cyanosis. SKIN: Warm and dry without rashes. Normal inspection. MUSCULOSKELETAL: No cervical, thoracic, lumbar or midline bony tenderness. Normal inspection. NEURO: Alert, awake. Significantly limited exam secondary to advanced dementia at baseline. Moves all 4 extremities no focal motor deficit. No signs of meningeal irritation noted. PSYCHIATRIC: Normal mood and affect but limited secondary to advanced dementia and hearing loss. Objective Labs 03/14/25 05:06 03/14/25 05:06 Labs: Laboratory Results - last 24 hr 03/13/25 04:35 WBC 10.5 RBC 3.36 L Hgb 9.8 L Hct 30.2 L MCV 90 MCH 29.2 MCHC 32.5 RDW Std Deviation 44.5 Plt Count 288 Neut % (Auto) 72 Lymph % (Auto) 20 [place] % (Auto) 6 Eos % (Auto) 1 Baso % (Auto) 1 Neut # (Auto) 7.6 Lymph # (Auto) 2.1 [place] # (Auto) 0.7 Eos # (Auto) 0.1 Baso # (Auto) 0.1 Immature Gran # (Auto) 0.04 H Absolute Nucleated RBC 0.00 Immature Gran % 0 Nucleated RBC % 0 Sodium 146 H Potassium 4.1 Chloride 108 H Carbon Dioxide 28.2 Anion Gap 10 BUN 28 H Creatinine 1.2 Estim Creat Clear Calc 36.1 L eGFR 44 L BUN/Creatinine Ratio 23 H Glucose 105 D Calculated Osmolality 296 H Calcium 8.2 L Corrected Calcium 8.7 Phosphorus 3.2 Magnesium 1.8 Total Bilirubin 0.4 AST 10 ALT < 7 L Alkaline Phosphatase 72 Total Protein 5.4 L Albumin 3.4 Globulin 2.0 L Albumin/Globulin Ratio 1.7 ABG Interpretation ABG results: 03/11/25 21:51 ABG pH 7.38 ABG pCO2 49 H ABG pO2 104 ABG HCO3 29 H ABG O2 Saturation 99 H ABG Base Excess 3 Assessment & Plan Assessment and plan (1) Dementia: Status: Chronic Assessment and plan: Advanced at baseline. Continue with home meds MRI brain confirmed chronic multi-infarct dementia. Patient is stable from neurology standpoint for discharge. Continue with vascular risk factors reduction, aspirin and statin and donepezil as before. (2) Altered mental status: Status: Resolved
[2025-03-14] VITALS: BP 146/71; PULSE 74; PULSE 75; RESP 20; TEMP 36.2; O2SAT 94
[2025-03-14 04:00] VITALS: BP 98/56; PULSE 76; PULSE 77; RESP 18; TEMP 36.1; O2SAT 91
[2025-03-14 05:33] LABS: Basophils # (Auto) 0.1 Thou/mm3 (0.0-0.2); Basophils % (Auto) 0 % (0-2.5); Eosinophils # (Auto) 0.2 Thou/mm3 (0.0-0.5); Eosinophils % (Auto) 2 % (0-10); Hematocrit 31.7 % (36.0-46.0); Hemoglobin 10.4 g/dL (12.0-16.0); Immature Granulocytes % (Auto) 0 % (0-0); Immature Granulocytes Auto 0.04 Thou/mm3 (0.00-0.00); Lymphocytes # (Auto) 2.6 Thou/mm3 (1.0-4.8); Lymphocytes % (Auto) 21 % (10-50); Mean Corpuscular HGB Conc 32.8 g/dl (31.0-37.0); Mean Corpuscular Hemoglobin 28.5 pg (25.0-35.0); Mean Corpuscular Volume 87 fL (80-100); Monocytes # (Auto) 0.8 Thou/mm3 (0.0-0.8); Monocytes % (Auto) 7 % (0-12); Neutrophils # (Auto) 8.4 Thou/mm3 (1.8-7.7); Neutrophils % (Auto) 70 % (37-80); Nucleated Red Blood Cell % 0 /100 WBC (0); Platelet Count 238 Thou/mm3 (140-440); Red Blood Count 3.65 Miln/mm3 (4.00-5.20); White Blood Count 12.1 Thou/mm3 (3.6-11.0)
[2025-03-14 06:38] LABS: Alanine Aminotransferase 8 U/L (10-49); Albumin, Serum 3.5 gm/dL (3.4-4.8); Albumin/Globulin Ratio 1.8 (1.2-2.2); Alkaline Phosphatase 73 U/L (46-116); Anion Gap 12 (7-16); Aspartate Amino Transferase 13 U/L (0-34); BUN/Creatinine Ratio 22 Ratio (12-20); Bilirubin,Total 0.4 mg/dL (0.3-1.2); Blood Urea Nitrogen 22 mg/dL (9-23); Calcium 8.1 mg/dL (8.3-10.6); Calcium (Corrected) 8.5 mg/dL (8.5-10.1); Carbon Dioxide 27.5 mMol/L (20.0-31.0); Chloride 106 mMol/L (98-107); Estimated Creatinine Clearance 43.2 mL/min (>60); Glucose 100 mg/dL (74-106); Magnesium 1.9 mg/dL (1.6-2.6); Osmolality,Calculated 292 (275-295); Phosphorous 2.9 mg/dL (2.4-5.1); Potassium 4.1 mMol/L (3.4-5.1); Sodium 145 mMol/L (136-145); Total Protein 5.5 gm/dL (5.7-8.2); eGFR 55 See Note
[2025-03-14 08:00] VITALS: BP 117/61; PULSE 77; PULSE 80; RESP 18; TEMP 36.2; O2SAT 91
--- NOTE | 2025-03-14 08:29 | PC.NURSE ---
Held pt's senna and colace due to having 3 bowel movements overnight and 1 already this AM
--- NOTE | 2025-03-14 09:00 | PC.SS ---
Update: Plan is to d/c patient to SNF today.
[2025-03-14] MEDS: ASPIRIN EC 81 MG TABEC PO (09:30)
[2025-03-14] MEDS: PANTOPRAZOLE 40 MG TABLET PO (09:31)
--- NOTE | 2025-03-14 11:27 | PC.SS ---
GEOMATICS PROFESSOR informed by bedside nurse that patient will need to have [place] catheter removed and then patient will need to demonstrate ability to void prior to discharge. GEOMATICS PROFESSOR to be notified by bedside nurse once patient voids to schedule return to SNF.
--- NOTE | 2025-03-14 11:59 | ESDS_ITS ---
<Statement entered by Nakul Ash MD - 03/22/25 13:34> I reviewed above note and agree with findings and plans. I have also personally examined the patient with medicine team and went over assessment and plan with medical team including pricing intern and resident physician. Planned Discharge Date 03/14/25 DS: Providers Provider Date of admission: 03/12/25 00:22 Primary care physician: Physician No Primary/Family Admitting Provider: Curtis Bryant MD Attending Provider on Admission: Nakul Ash MD Consults: 03/11/25 20:58 Consult to Neurology / Tele-Neurology Routine Comment: Consulting Provider: [facility] 03/12/25 00:27 Referral Physical Therapy Stat Comment: Physician Instructions: Referral Speech Therapy Routine Comment: 03/12/25 00:49 Consult to Neurology / Tele-Neurology Stat Comment: Consulting Provider: Tom Tran 03/12/25 02:57 Referral Wound Care Routine Comment: Instructions: new admit from snf with left medial heel, skin tear left upper arm and laceration with scab on right forehead from a previous fall Attending Provider on DC: Nakul Ash MD Discharging Provider: Nakul Ash MD DS: Diagnosis Problem List Completed Was Problem List Reviewed/Reconciled?: Yes Hospital Course Hospital Course Hospital course: Reason for hospitalization: AMS 89-year-old female with past medical history of hypertension, hyperlipidemia, diabetes, asthma, major depressive disorder, Alzheimer's dementia who presented to the ED due to altered mental status and left sided weakness. Stroke alert was called and patient was admitted for CVA workup. Work up for stroke including CT head, CTA head/neck, MR brain negative. Echo (no bubble) showed EF 60-65%, U-Tox negative. Theres was concern of polypharmacy contributing to AMS. Medications were adjusted accordingly. Her mentation improved but remained oriented to self only. Patient is now in stable condition and ready for discharge. Recommendations were given as below. Discharge Recommendations: Continue taking aspirin and atorvastatin for stroke prevention. Stop taking Plavix, amlodipine, and Lyrica 100mg BID. Escitalopram dose was reduced from 20mg to 10mg daily. Follow up with neurology in 1-2 weeks. Follow up with PCP in 1-2 weeks. Hospital Diagnoses: #Acute encephalopathy #Left sided weakness likely due to TIA #Alzheimers dementia #Diabetes mellitus type 2 #Hypertension The patient's management plan was discussed with my attending physician Dr. Anyi Lee MD, PGY-1 Time Spent with Patient Time attestation: Total time spent providing and/or coordinating discharge services: Time spent: Greater than 30 minutes Exam Vital Signs Temp Pulse Resp BP Pulse Ox O2 Del Method O2 Flow Rate 97.2 F 77 18 117/61 91 L Room Air 2 03/14/25 08:00 03/14/25 08:00 03/14/25 08:00 03/14/25 08:00 03/14/25 08:00 03/14/25 08:00 03/12/25 12:00 Narrative Exam General: Elderly female, No acute distress, [place]ian speaking HEENT: NCAT, No JVD noted. Mucosa dry. Pupils are equal and reactive to light bilaterally Cardiovascular: Normal S1 and S2. Regular rate and rhythm. Respiratory: Lungs are clear to auscultation bilaterally. No wheezing or crackles heard. Abdomen: Soft, nontender, not distended, normal bowel sounds. Skin: Warm to touch, dry, no rashes noted Musculoskeletal: No gross injuries. Able to move all 4 extremities. No pitting edema Neuro: Alert and oriented x1. No focal neuro deficits. Psych: unable to assess Discharge Plan Plan Patient Disposition: Xfer Skilled Nsg Fac (SNF) Patient condition on transfer: Stable Prescriptions/Referrals Prescriptions/Med Rec: New atorvastatin 20 mg Tablet 80 mg PO HS 30 Days Qty: 120 0RF escitalopram oxalate 10 mg tablet 10 mg PO QDAY 30 Days Qty: 30 0RF aspirin 81 mg capsule 81 mg PO QDAY 30 Days Qty: 30 0RF pregabalin [Lyrica] 75 mg capsule 75 mg PO BID 30 Days Qty: 60 0RF Continued donepezil 5 mg tablet 5 mg PO HS metformin 1,000 mg tablet 1,000 mg PO QDAY ipratropium-albuterol 0.5 mg-3 mg(2.5 mg base)/3 mL solution for nebulization 3 ml INHALATION Q4H PRN (Reason: shortness of breath) albuterol sulfate [Ventolin HFA] See Rx Instructions inhalation Q6HR PRN (Reason: shortness of breath) Rx Instructions: inhaled every 6 hours PRN; multivitamin [Daily Multi-Vitamin] Tablet 1 tab PO QDAY polyethylene glycol 3350 [ClearLax] 17 gram/dose powder 17 g PO QDAY lidocaine [Aspercreme (lidocaine)] 4 % adhesive patch,medicated 1 patch topical Q4H PRN (Reason: pain) Rx Instructions: apply to left great toenail topically bisacodyl [Dulcolax (bisacodyl)] 10 mg suppository 10 mg [place] QDAY PRN (Reason: constipation) Enema 19-7 gram/118 mL enema 118 ml [place] Q72H PRN (Reason: constipation) guaifenesin [Adult Tussin Chest Congestion] 100 mg/5 mL liquid 200 mg PO Q6H PRN (Reason: cough) magnesium hydroxide [Dulcolax (magnesium hydroxide)] 400 mg/5 mL suspension 30 ml PO Q72H PRN (Reason: constipation) glycerin Drops 2 drp ophthalmic (eye) Q4HR PRN (Reason: dry eye(s)) acetaminophen 325 mg tablet 650 mg PO Q6H PRN (Reason: pain) artificial tears solution Drops 2 drp ophthalmic (eye) Q4H PRN (Reason: eye irritation) furosemide [Lasix] 20 mg tablet 20 mg PO BID Discontinued amlodipine 2.5 mg tablet 2.5 mg PO QDAY escitalopram oxalate 20 mg tablet 20 mg PO QDAY montelukast 10 mg tablet 10 mg PO QDAY acetaminophen [8 Hour Pain Reliever] 650 mg tablet extended release 650 mg PO Q6HR PRN (Reason: pain) pregabalin [Lyrica] 75 mg capsule 75 mg PO BID aspirin 81 mg capsule 81 mg PO QDAY Qty: 30 1RF clopidogrel 75 mg tablet 75 mg PO QDAY Qty: 30 1RF pregabalin [Lyrica] 100 mg capsule 100 mg PO Q8H atorvastatin 80 mg tablet 80 mg PO HS Referrals: No Primary/Family,Physician [Primary Care Provider] - Tom Tran MD [Physician] - Patient/Caregiver Discharge Instructions Other Discharge Activity Instructions:: Continue taking aspirin and atorvastatin for stroke prevention. Stop taking Plavix, amlodipine, and Lyrica 100mg BID. Escitalopram dose was reduced from 20mg to 10mg daily. Follow up with neurology in 1-2 weeks. Follow up with PCP in 1-2 weeks. Education Materials: Delirium & Dementia Difference, ED Confusion, ED Weakness (Uncertain Cause) Print Language: Amharic Stand Alone Forms: Bela Award Info., Patient Portal Info Letter Discharge Order Discharge Orders: Discharge (Routine); Ordered 03/14/25 Ordered By: Anyi Lee Quality Discharge Quality Measures VTE prophylaxis
[2025-03-14 12:00] VITALS: BP 118/73; PULSE 76; PULSE 80; RESP 22; TEMP 36.6; O2SAT 93
--- NOTE | 2025-03-14 14:31 | PC.SS ---
Addendum entered and electronically signed by GUCCI Calero 03/14/25 14:52: Transport referral submitted on [facility]. Awaiting response. Original Note: Bedside nurse informed PERSONAL INSURANCE ADVISOR that patient has voided. PERSONAL INSURANCE ADVISOR to arrange transportation on behalf of the patient.
--- NOTE | 2025-03-14 14:50 | PC.SS ---
[facility] contacted to schedule transport to SNF. Reference #[id number]. Preferred vendor [facility]. ETA is 5:30 pm. Pending confirmation. WATER CONTROL STATION ENGINEER updated bedside nurse and SNF.
--- NOTE | 2025-03-14 15:00 | PC.SS ---
MILL FEEDER contacted dispatch to schedule transport for 05:30 pm today. Pending [employer] authorization.
--- NOTE | 2025-03-14 15:02 | PC.SS ---
COLOR MAKER contacted patient's son, Nirmal Resendez; to provide update that [facility]. Transport scheduled for 05:30 pm.
--- NOTE | 2025-03-14 15:26 | PC.SS ---
Rounding Note: Patient to d/c to SNF today.
[2025-03-14 16:00] VITALS: BP 126/85; PULSE 74; RESP 19; TEMP 36.8; O2SAT 19
[2025-03-14 20:00] VITALS: BP 152/85; PULSE 77; PULSE 78; RESP 20; TEMP 36.1; O2SAT 97
[2025-03-14] MEDS: ATORVASTATIN CALCIUM 20 MG TABLET 80 MG PO (20:04)
--- NOTE | 2025-03-14 21:20 | PC.NURSE ---
Discharge order written. Patient discharged back to [facility] via stretcher with [facility]. Belongings with patient. Informed staff a [facility] the patient is returning to the facility. Patients vitals stable on discharge.
--- NOTE | 2025-03-14 23:33 | PD.NEUROPROG ---
Documentation for date of: 03/14/25 Subjective Subjective Interval history: Patient was seen in telemetry today at the bedside. No issues or complaints overnight. Exam - Neurology Vital Signs Temp Pulse Resp BP Pulse Ox O2 Del Method O2 Flow Rate 97.0 F 78 20 152/85 H 97 Room Air 2 03/14/25 20:00 03/14/25 20:00 03/14/25 20:00 03/14/25 20:00 03/14/25 20:00 03/14/25 20:00 03/12/25 12:00 Narrative Exam GENERAL APPEARANCE: Well hydrated, well-nourished in no acute distress. HEENT: Normocephalic, atraumatic, extraocular movements intact. Pupils: Equal reacting to light NECK: Supple, no JVD or bruits. CARDIOVASULAR: Heart: S1, S2 heard, regular without S3-S4 or murmur no rubs or gallops. LUNGS/CHEST: Clear to auscultation bilaterally. No rails, rhonchi, or wheezing. Normal inspection. ABDOMEN: Soft, nontender, with normal bowel sounds. No pulsatile masses. No rebound, rigidity, or guarding. Normal inspection and palpation. EXTREMITIES: Normal inspection and palpation. No edema, clubbing or cyanosis. SKIN: Warm and dry without rashes. Normal inspection. MUSCULOSKELETAL: No cervical, thoracic, lumbar or midline bony tenderness. Normal inspection. NEURO: Alert, awake. Significantly limited exam secondary to advanced dementia at baseline. Moves all 4 extremities no focal motor deficit. No signs of meningeal irritation noted. PSYCHIATRIC: Normal mood and affect but limited secondary to advanced dementia and hearing loss. Objective Labs 03/14/25 05:06 03/14/25 05:06 Labs: Laboratory Results - last 24 hr 03/14/25 05:06 WBC 12.1 H RBC 3.65 L Hgb 10.4 L Hct 31.7 L MCV 87 MCH 28.5 MCHC 32.8 RDW Std Deviation 42.0 Plt Count 238 D Neut % (Auto) 70 Lymph % (Auto) 21 [place] % (Auto) 7 Eos % (Auto) 2 Baso % (Auto) 0 Neut # (Auto) 8.4 H Lymph # (Auto) 2.6 [place] # (Auto) 0.8 Eos # (Auto) 0.2 Baso # (Auto) 0.1 Immature Gran # (Auto) 0.04 H Absolute Nucleated RBC 0.00 Immature Gran % 0 Nucleated RBC % 0 Sodium 145 Potassium 4.1 Chloride 106 Carbon Dioxide 27.5 Anion Gap 12 BUN 22 Creatinine 1.0 Estim Creat Clear Calc 43.2 L eGFR 55 L BUN/Creatinine Ratio 22 H Glucose 100 Calculated Osmolality 292 Calcium 8.1 L Corrected Calcium 8.5 Phosphorus 2.9 Magnesium 1.9 Total Bilirubin 0.4 AST 13 ALT 8 L Alkaline Phosphatase 73 Total Protein 5.5 L Albumin 3.5 Globulin 2.0 L Albumin/Globulin Ratio 1.8 ABG Interpretation ABG results: 03/11/25 21:51 ABG pH 7.38 ABG pCO2 49 H ABG pO2 104 ABG HCO3 29 H ABG O2 Saturation 99 H ABG Base Excess 3 Assessment & Plan Assessment and plan (1) Dementia: Status: Chronic Assessment and plan: Advanced at baseline. Continue with home meds MRI brain confirmed chronic multi-infarct dementia. Patient is stable from neurology standpoint for discharge. Continue with vascular risk factors reduction, aspirin and statin and donepezil as before. (2) Altered mental status: Status: Resolved
== END 2025-03-14 21:20 | disposition skilled nursing facility (03) | DRG 69 ==
LOC: SERX 03-12 00:01 → SERHOLD 03-12 00:33 → S2NX 03-12 01:53
PROVIDERS: Student in an Organized Health Care Education/Training Program; Admitting Provider Student in an Organized Health Care Education/Training Program; Emergency Provider Emergency Medicine; Visit Provider Internal Medicine
DX: G45.9 Transient cerebral ischemic attack, unspecified (principal); G93.41 Metabolic encephalopathy; I10 Essential (primary) hypertension; E78.5 Hyperlipidemia, unspecified; F32.9 Major depressive disorder, single episode, unspecified; E11.40 Type 2 diabetes mellitus with diabetic neuropathy, unspecified; G30.9 Alzheimer's disease, unspecified; F02.80 Dementia in other diseases classified elsewhere, unspecified severity, without behavioral disturbance, psychotic disturbance, mood disturbance, and anxiety; R53.1 Weakness; E83.42 Hypomagnesemia; F01.50 Vascular dementia, unspecified severity, without behavioral disturbance, psychotic disturbance, mood disturbance, and anxiety; J44.89 Other specified chronic obstructive pulmonary disease; Z74.01 Bed confinement status; Z79.02 Long term (current) use of antithrombotics/antiplatelets; Z79.84 Long term (current) use of oral hypoglycemic drugs; Z99.3 Dependence on wheelchair; Z79.899 Other long term (current) drug therapy
CPT/HCPCS: 36415; 36600; 70450; 70496; 70498; 70544; 71045; 80053; 80307; 80320; 81001; 82140; 82803; 83036; 83735; 84100; 84443; 84484; 85025; 85610; 85730; 87081; 87811; 92610; 93005; 93306; 96365; 96375; 97162; 99291; A4314; A4649; J1200; J1815; J2470; J2919; J3475; J3490; J7030; Q9967; A9270; G0480